=== PATIENT | female | born 1960 | race Caucasian/White ===

== ENCOUNTER → 2018-01-10 14:00 | Outpatient (CLI) | payer OTHER, SELFPAY ==
--- NOTE | 2018-01-10 | DI.MG.S_ITS ---
BILATERAL DIGITAL SCREENING MAMMOGRAM 3D/2D WITH CAD: 01/10/2018 CLINICAL: Patient presents for routine screening. S/P bilateral augmentation. Comparison is made to exams dated: 12/28/2016 mammogram, 12/09/2015 mammogram, and 12/07/2014 mammogram - [facility]. There are scattered fibroglandular elements in both breasts. Current study was also evaluated with a Computer Aided Detection (CAD) system. Bilateral breast implants are stable. No significant masses, calcifications, or other findings are seen in either breast. There has been no significant interval change. IMPRESSION: NEGATIVE There is no mammographic evidence of malignancy. A 1 year screening mammogram is recommended. This exam was interpreted at Station ID: [id number]. NOTE: For mammograms, a report in lay terms will be sent to the patient. Approximately 15% of breast malignancies will not be visualized mammographically. In the management of a palpable breast mass, a negative mammogram must not discourage biopsy of a clinically suspicious lesion. Electronically Signed By: Frederic smith/oamira:01/10/2018 17:51:58 letter sent: Normal Exam ACR BI-RADS Category 1: Negative 3341F
== END ==
PROVIDERS: Family Provider Family Medicine; PCP Family Medicine; Visit Provider Family Medicine
DX: Z12.31 Encounter for screening mammogram for malignant neoplasm of breast (principal); Z98.82 Breast implant status
CPT/HCPCS: 77063; 77067

== ENCOUNTER → 2018-05-17 14:59 | Outpatient (CLI) | payer OTHER, SELFPAY ==
[2018-05-17 15:26] LABS: Hematocrit 36.8 % (36-46); Hemoglobin 12.4 g/dL (12.0-16.0); Mean Corpuscular HGB Conc 33.6 % (30-36); Mean Corpuscular Hemoglobin 30.8 PG (26-34); Mean Corpuscular Volume 91.5 fL (80-100); Platelet Count 193 X10^3/uL (150-400); Red Blood Cell Count 4.03 X10^6/uL (4.0-5.2); Red Cell Distribution Width 13.9 % (11.6-14.8); White Blood Cell Count 6.6 X10^3/uL (4.5-11.0)
[2018-05-17 15:32] LABS: Neutrophils Absolute Manual 3234 /uL (3000-5900); Total Cells Counted 100
[2018-05-17 15:45] LABS: RBC Morphology Normal Morphology
[2018-05-17 16:18] LABS: Thyroid Stimulating Hormone 0.58 uIU/mL (0.47-4.68)
[2018-05-17 16:38] LABS: Hep C Virus Ab w/Reflex Quant NEGATIVE s/c (NEGATIVE)
[2018-05-17 19:22] LABS: Alanine Aminotransferase 32 IU/L (9-52); Albumin Globulin Ratio 1.6 (1.0-2.8); Alkaline Phosphatase 58 U/L (38-126); Aspartate Aminotransferase 32 IU/L (14-36); BUN Creatinine Ratio 21.1 (6-22); Bilirubin Total 0.6 mg/dL (0.2-1.3); Blood Urea Nitrogen 19 mg/dL (7-17); Calcium 9.3 mg/dL (8.4-10.2); Carbon Dioxide 30 mmol/L (22-32); Chloride 106 mmol/L (98-107); Cholesterol 208 mg/dL (140-199); Estimated Glomerular Filt Rate > 60.0 mL/min (>60); Globulin 2.5 g/dL (1.7-4.1); Glucose 75 mg/dL (70-100); HDL Cholesterol 83 mg/dL (40-60); HEMOLYSIS < 15 (0-50); LDL Cholesterol Calculated 108 mg/dL (<100); Sodium 144 mmol/L (137-145); Total Protein 6.5 g/dL (6.3-8.2); Triglycerides 85 mg/dL (35-150)
[2018-05-17 20:30] LABS: Hemoglobin A1C% w Est Avg Glu 5.8 % (4.0-6.0)
== END ==
PROVIDERS: PCP Family Medicine; Visit Provider Family Medicine
DX: D68.51 Activated protein C resistance (principal); Z79.01 Long term (current) use of anticoagulants; Z13.29 Encounter for screening for other suspected endocrine disorder; E78.5 Hyperlipidemia, unspecified; Z11.59 Encounter for screening for other viral diseases
CPT/HCPCS: 36415; 80053; 80061; 83036; 84443; 85025; 86803

== ENCOUNTER 2018-06-20 10:09 | Emergency (ER) | payer OTHER, SELFPAY ==
--- NOTE | 2018-06-20 10:18 | ED.WOUNDLAC ---
HPI - Wound/Laceration General Chief Complaint: Wound/Laceration Stated Complaint: SLICE ACROSS BACK OF L HAND,WARIFIN Time Seen by Provider: 06/20/18 10:17 Source: patient and family Mode of arrival: ambulatory Limitations: no limitations History of Present Illness HPI narrative: 57-year-old nonsmoking female presents with left hand laceration suffered this morning. Her tetanus is current and she states she cut her hand on the sharp edge of a new shelf she was putting together. It started bleeding immediately. She denies other injury. She denies numbness, tingling or weakness. She has full range of motion of her hand and fingers. Onset (ago): minute(s) Extremity Location: Left: hand Place: home Patient tetanus UTD: Yes Context: accidental Associated symptoms: none Treatments prior to arrival: bandage Related Data Home Medications Medication Instructions Recorded Confirmed Vitamin B-12 100 mcg PO QDAY #0 tab 05/02/13 05/17/18 ferrous gluconate [Iron High 65 mg PO Q DAY #0 08/21/16 05/17/18 Potency] loratadine 10 mg PO QDAYP PRN #0 12/03/16 05/17/18 Previous Rx's Medication Instructions Recorded sumatriptan succinate [Imitrex] 25 mg PO PRN PRN #30 tab 09/07/16 estriol (bulk) 0.2 % VAGINAL SEE INSTRUCTIONS #30 03/18/17 gm betamethasone dipropionate 1 joe TOPICAL QHS #45 gm 07/07/17 lidocaine HCl 0 TOPICAL SEE INSTRUCTIONS #30 ml 07/12/17 betamethasone dipropionate 0 TOPICAL QPM #45 gm 07/23/17 hydrocodone 5 mg-acetaminophen 325 1 tab PO Q6H PRN #20 tab 01/17/18 mg tablet warfarin 10 mg tablet 10 mg PO SEE INSTRUCTIONS #90 tab 05/04/18 warfarin 2 mg tablet 2 mg PO SEE INSTRUCTIONS #120 tab 05/04/18 terbinafine HCl 250 mg tablet 250 mg PO DAILY 84 Days #84 tab 05/18/18 Allergies Allergy/AdvReac Type Severity Reaction Status Date / Time bacitracin [From CORTISPORIN] Allergy Unknown Verified 05/17/18 13:32 budesonide Allergy Unknown nasal Verified 05/17/18 13:32 [From RHINOCORT ALLERGY] swelling hydrocortisone Allergy Unknown Verified 05/17/18 13:32 [From CORTISPORIN] neomycin [From CORTISPORIN] Allergy Unknown Verified 05/17/18 13:32 polymyxin B Allergy Unknown Verified 05/17/18 13:32 [From CORTISPORIN] meperidine [From DEMEROL] AdvReac Unknown vomiting Verified 05/17/18 13:32 STERI STRIPS Allergy Unknown rash Uncoded 05/17/18 13:32 Review of Systems Review of Systems All systems reviewed & are unremarkable except as noted in HPI and below Constitutional Denies chills, Denies fever(s), Denies lethargy and Denies weakness Eyes Denies change in vision, Denies eye discharge, Denies irritation and Denies loss of vision ENT Ears, Nose, Mouth, and Throat: Denies change in voice, Denies neck pain and Denies sore throat Cardiovascular Denies chest pain, Denies irregular heart rhythm, Denies lightheadedness, Denies palpitations, Denies dyspnea, Denies dyspnea on exertion and Denies orthopnea Respiratory Denies cough, Denies dyspnea, Denies dyspnea on exertion and Denies wheezing Gastrointestinal Gastrointestinal: Denies abdominal pain, Denies change in bowel habits, Denies diarrhea, Denies nausea and Denies vomiting Genitourinary Denies hematuria, Denies flank pain, Denies urinary incontinence and Denies urinary urgency Musculoskeletal Denies neck pain Integumentary/Breasts Denies pruritus, Denies erythema, Denies rash and Reports wounds Neurologic Denies confusion, Denies loss of vision and Denies weakness Psychiatric Denies anxiety, Denies confusion, Denies depression, Denies homicidal ideation and Denies suicidal ideation Endocrine Denies palpitations Hematologic/Lymphatic Denies easy bruising Allergic/Immunologic Denies wheezing PFSH Medical History DVT (deep venous thrombosis) (Chronic 2003) Factor V Leiden (Chronic 1959) Hayfever (Chronic) Chicken pox (Resolved 1963) Surgical History Anesthesia (Resolved) History of abdominoplasty (Resolved 2004) History of breast augmentation (Resolved 2004) History of gastric bypass (Resolved 2004) History of lumbosacral spine surgery (Resolved 1993) History of lumbosacral spine surgery (Resolved 1994) Status post delivery (Resolved 1994) Family History Child Age: 22 Factor V deficiency Graves' disease Depression Anxiety Mental health problem Father Heart disease Lung cancer Grandfather Heart disease Mother Age: 84 Factor V deficiency Asthma TIA (transient ischemic attack) Grandfather Heart disease Heart attack Sister Age: 57 Hypertension Factor V deficiency Grandmother No problems noted. Grandmother MVA (motor vehicle accident) Sister Asthma Thyroid disorder Social History Smoking Status: Former smoker Exam Narrative Exam Narrative: GEN: AOx3 and in mild distress EYES: Pupils are equal, round, and reactive to light and accommodation. Extraoccular muscles are intact bilaterally. There is no subconjunctival hemorrhage or exudate. CHEST: Lungs are clear to auscultation bilaterally and free of wheezes, rales, or rhonchi. Heart rate is regular rhythm, there are no murmurs, clicks, rubs, or gallops. There is no chest wall tenderness. ABD: Abdomen is soft and nontender. There is no guarding or rebound. Bowel sounds are normal in all 4 quadrants. There is no mass or organomegaly. EXT: Full painless ROM of all extremities with no loss of sensation or strength. SKIN: 2cm laceration on dorsum of left hand just proximal to 5th metacarpophalangeal joint. Patient has full strength and range of motion of 5th finger. No numbness or tingling. Cap refill less than 2 sec. Wound visualized in a bloodless field and no tendon involvement noted Warm, pink, and dry. No erythema or rash Initial Vital Signs Initial Vital Signs: Vital Signs Temperature 98.2 F 06/20/18 10:19 Pulse Rate 73 06/20/18 10:19 Respiratory Rate 20 06/20/18 10:19 Blood Pressure 174/84 H 06/20/18 10:19 Pulse Oximetry 97 06/20/18 10:19 Procedures Laceration Repair Laceration 1: Site: hand Side (If applicable): left Size (cm): 2 Description: linear Depth: simple, single layer Local Anesthetic: lidocaine 1% and with bicarb Pre-repair: wound explored and deep structures intact Skin layer closed with: nylon Size (cm): 5-0 Number of sutures: 4 Course Vital Signs - 8 hr 11/12/18 10:19 Temperature 98.2 F Pulse Rate 73 Respiratory Rate 20 Blood Pressure 174/84 H Pulse Oximetry 97 Discharge Plan Departure Patient Disposition: Home Clinical Impression: Hand laceration Instructions: DI for Laceration Repair Activity Restrictions/Additional Instructions: Please keep the wound clean and dry to the best of your ability. Please monitor for signs of infection such as redness to the skin or increasing pain. Have the sutures removed by your doctor in about 7 days. If you are unable to get into your doctor, we would be happy to remove the sutures in that same timeframe. Prescriptions: No Action hydrocodone-acetaminophen 5-325 mg tablet 1 tab PO Q6H PRN (Reason: pain) Qty: 20 RF: 0 Vitamin B-12 100 mcg PO QDAY Qty: 0 RF: 0 ferrous gluconate [Iron High Potency] 240 MG tablet 65 mg PO Q DAY Qty: 0 RF: 0 sumatriptan succinate [Imitrex] 25 MG tablet 25 mg PO PRN PRNQty: 30 RF: 1 loratadine 10 MG tablet 10 mg PO QDAYP PRNQty: 0 RF: 0 estriol (bulk) 100 GM powder 0.2 % Vaginal SEE INSTRUCTIONS Qty: 30 RF: 5 betamethasone dipropionate 0.05 % cream 1 joe Topical QHS Qty: 45 RF: 0 lidocaine HCl 30 ML jelly Topical SEE INSTRUCTIONS Qty: 30 RF: 4 betamethasone dipropionate 0.05 % ointment Topical QPM Qty: 45 RF: 0 warfarin 10 mg tablet 10 mg PO SEE INSTRUCTIONS Qty: 90 RF: 3 warfarin [Coumadin] 2 mg tablet 2 mg PO SEE INSTRUCTIONS Qty: 120 RF: 3 terbinafine HCl 250 mg tablet 250 mg PO DAILY 84 Days Qty: 84 RF: 0 Referrals: Vale Tafoya MD [Primary Care Provider] -
[2018-06-20 10:19] VITALS: BP 174/84; PULSE 73; RESP 20; TEMP 36.8; O2SAT 97; BMI 28.9
[2018-06-20 10:47] VITALS: BP 138/80; PULSE 68; RESP 16; O2SAT 99
== END 2018-06-20 10:50 | disposition home or self-care (01) ==
PROVIDERS: Emergency Provider Emergency Medicine; Family Provider Family Medicine; PCP Family Medicine
DX: S61.412A Laceration without foreign body of left hand, initial encounter (principal); W26.8XXA Contact with other sharp object(s), not elsewhere classified, initial encounter
CPT/HCPCS: 12001; 99282; 99283

== ENCOUNTER → 2018-07-29 14:30 | Outpatient (CLI) | payer OTHER, SELFPAY ==
[2018-07-29 15:45] LABS: Alanine Aminotransferase 40 IU/L (9-52); Albumin 4.3 g/dL (3.5-5.0); Albumin Globulin Ratio 1.7 (1.0-2.8); Alkaline Phosphatase 60 U/L (38-126); Aspartate Aminotransferase 34 IU/L (14-36); BUN Creatinine Ratio 22.9 (6-22); Bilirubin Total 0.5 mg/dL (0.2-1.3); Blood Urea Nitrogen 16 mg/dL (7-17); Calcium 9.9 mg/dL (8.4-10.2); Carbon Dioxide 26 mmol/L (22-32); Chloride 104 mmol/L (98-107); Estimated Glomerular Filt Rate > 60.0 mL/min (>60); Globulin 2.5 g/dL (1.7-4.1); Glucose 95 mg/dL (70-100); HEMOLYSIS < 15 (0-50); Sodium 143 mmol/L (137-145); Total Protein 6.8 g/dL (6.3-8.2)
== END ==
PROVIDERS: PCP Family Medicine; Visit Provider Family Medicine
DX: Z79.899 Other long term (current) drug therapy (principal)
CPT/HCPCS: 36415; 80053

== ENCOUNTER → 2019-01-11 10:44 | Outpatient (CLI) | payer OTHER, MEDICAID, SELFPAY ==
--- NOTE | 2019-01-11 | DI.MG.S_ITS ---
BILATERAL DIGITAL SCREENING MAMMOGRAM 3D/2D WITH CAD WITH AUGMENTATION: 01/11/2019 CLINICAL: Patient presents for routine screening. S/P bilateral augmentation. Comparison is made to exams dated: 01/10/2018 mammogram, 12/28/2016 mammogram, and 12/09/2015 mammogram - [facility]. There are scattered fibroglandular elements in both breasts. Current study was also evaluated with a Computer Aided Detection (CAD) system. Bilateral breast implants are stable. No significant masses, calcifications, or other findings are seen in either breast. There has been no significant interval change. IMPRESSION: NEGATIVE There is no mammographic evidence of malignancy. A 1 year screening mammogram is recommended. This exam was interpreted at Station ID: [id number]. NOTE: For mammograms, a report in lay terms will be sent to the patient. Approximately 15% of breast malignancies will not be visualized mammographically. In the management of a palpable breast mass, a negative mammogram must not discourage biopsy of a clinically suspicious lesion. Electronically Signed By: Umberto reza/omaira:01/11/2019 16:50:39 letter sent: Normal Exam ACR BI-RADS Category 1: Negative 3341F
== END ==
PROVIDERS: PCP Family Medicine; Visit Provider Family Medicine
DX: Z12.31 Encounter for screening mammogram for malignant neoplasm of breast (principal); Z98.82 Breast implant status
CPT/HCPCS: 77063; 77067

== ENCOUNTER → 2019-03-11 09:06 | Outpatient (CLI) | payer OTHER, MEDICAID, SELFPAY ==
--- NOTE | 2019-03-11 09:12 | DI.RAD.S_ITS ---
PROCEDURE: XR SHOULDER LT MIN 2V INDICATIONS: left shoulder pain and dec ROM TECHNIQUE: 3 views of the shoulder were acquired. COMPARISON: None. FINDINGS: Bones: No fractures or dislocations. No suspicious bony lesions. Visualized ribs appear intact. Degenerative changes are seen, particularly involving the acromioclavicular joint. Soft tissues: No suspicious soft tissue calcifications. The visualized lung demonstrates an unremarkable appearance. IMPRESSION: No acute plain film abnormality is seen. If it would be helpful for clinical management decision making, please consider a dedicated scheduled left shoulder MRI for further evaluation (assuming that there is no contraindication). Dictated by: Akhil Hernandez M.D. on 03/11/2019 at 8:58 Approved by: Akhil Hernandez M.D. on 03/11/2019 at 9:00
== END ==
PROVIDERS: PCP Family Medicine; Visit Provider Physician Assistant
DX: M25.512 Pain in left shoulder (principal)
CPT/HCPCS: 73030

== ENCOUNTER → 2019-06-30 11:25 | Outpatient (CLI) | payer OTHER, MEDICAID, SELFPAY | PROVIDERS: PCP Family Medicine; Visit Provider Physician Assistant | DX: R30.0 Dysuria (principal) | CPT/HCPCS: 87086 ==

== ENCOUNTER → 2019-07-14 18:38 | Outpatient (CLI) | payer OTHER, MEDICAID, SELFPAY ==
--- NOTE | 2019-07-14 | DI.MRI.S_ITS ---
PROCEDURE: MR SHOULDER LT WO CON INDICATIONS: UNSPECIFIED ROTATOR CUFF TEAR OR RUPTURE TECHNIQUE: Noncontrast oblique coronal T2 fast spin echo with fat saturation, oblique sagittal T1 spin echo and T2 fast spin echo with fat saturation, axial T1 spin echo and T2 fast spin echo with fat saturation through the shoulder. COMPARISON: None. FINDINGS: Image quality: Excellent. Rotator cuff: Large full-thickness tear involving the supraspinatus tendon measuring 2.2 cm AP dimension on sagittal image 16 series 10. There is also interstitial tearing involving the footprint of the supraspinatus tendon seen on image 8 series 7. Infraspinatus tendinopathy mild thickening with low-grade bursal and articular surface fraying. Teres minor appears intact. Subscapularis tendinopathy with low-grade bursal and articular surface fraying seen on image 12 series 6. Mild atrophy of the supraspinatus muscle. Bones and bursae: No bone marrow contusions or fractures. Moderate hypertrophic acromioclavicular joint degeneration. Acromion demonstrates conventional anatomy, without an os acromiale. Capsule and soft tissues: Ill-defined intrasubstance signal changes present within the superior labrum suggestive of age indeterminate tear although subtle this could be chronic age-related fraying. Long head of the biceps tendon intact. Complete obliteration of the subcoracoid fat. Coracohumeral ligament intact. IMPRESSION: Large full-thickness tear involving the critical zone of the supraspinatus tendon. Mild atrophy of the supraspinatus muscle Infraspinatus and subscapularis tendinopathy with low-grade bursal and articular surface fraying Intrasubstance signal changes within the superior labrum as discussed above, possibly labral tear versus age-related fraying. Dictated by: Giovani Layne M.D. on 07/17/2019 at 8:53 Approved by: Giovani Layne M.D. on 07/17/2019 at 9:00
== END ==
PROVIDERS: Family Provider Family Medicine; PCP Family Medicine; Visit Provider Orthopaedic Surgery
DX: M75.122 Complete rotator cuff tear or rupture of left shoulder, not specified as traumatic (principal)
CPT/HCPCS: 73221

== ENCOUNTER → 2019-08-07 11:48 | Outpatient (CLI) | payer OTHER, MEDICAID, SELFPAY ==
--- NOTE | 2019-08-07 11:49 | DI.US.S_ITS ---
PROCEDURE: US PERIPH VENOUS LOW EXTREM LT INDICATIONS: EDEMA TECHNIQUE: Real-time imaging, as well as color and pulse Doppler interrogation, were performed of the lower extremity deep veins from the inguinal ligament to the popliteal fossa. COMPARISON: None. FINDINGS: The common femoral, femoral and popliteal veins are normally compressible, and free of intraluminal thrombus. Color and pulse Doppler demonstrate normal phasic intraluminal flow. There is normal augmentation response to distal compression maneuver. IMPRESSION: No evidence of left lower extremity deep vein thrombosis. Dictated by: Colten Luciano M.D. on 08/07/2019 at 11:23 Approved by: Colten Luciano M.D. on 08/07/2019 at 11:26
== END ==
PROVIDERS: PCP Family Medicine; Visit Provider Family Medicine
DX: R60.0 Localized edema (principal); D68.51 Activated protein C resistance; Z86.718 Personal history of other venous thrombosis and embolism
CPT/HCPCS: 93971

== ENCOUNTER → 2020-03-26 10:02 | Outpatient (CLI) | payer OTHER, SELFPAY ==
--- NOTE | 2020-03-26 | DI.MG.S_ITS ---
BILATERAL DIGITAL SCREENING MAMMOGRAM 3D/2D WITH CAD WITH AUGMENTATION: 03/26/2020 CLINICAL: Routine screening. Comparison is made to exams dated: 01/11/2019 mammogram, 01/10/2018 mammogram, and 12/28/2016 mammogram - [facility]. There are scattered fibroglandular elements in both breasts. Current study was also evaluated with a Computer Aided Detection (CAD) system. Bilateral breast implants are stable. No significant masses, calcifications, or other findings are seen in either breast. There has been no significant interval change. IMPRESSION: NEGATIVE There is no mammographic evidence of malignancy. A 1 year screening mammogram is recommended. This exam was interpreted at Station ID: [id number]. NOTE: For mammograms, a report in lay terms will be sent to the patient. Approximately 15% of breast malignancies will not be visualized mammographically. In the management of a palpable breast mass, a negative mammogram must not discourage biopsy of a clinically suspicious lesion. Electronically Signed By: Geo joseph/omaira:03/26/2020 12:16:42 letter sent: Normal Exam ACR BI-RADS Category 1: Negative 3341F
== END ==
PROVIDERS: PCP Family Medicine; Referring Provider Family Medicine; Visit Provider Family Medicine
DX: Z12.31 Encounter for screening mammogram for malignant neoplasm of breast (principal)
CPT/HCPCS: 77063; 77067

== ENCOUNTER 2020-05-11 15:55 | Emergency (ER) | payer OTHER, SELFPAY ==
[2020-05-11 16:12] VITALS: BP 159/78; PULSE 72; RESP 22; TEMP 36.7; O2SAT 96; BMI 24.7
--- NOTE | 2020-05-11 16:27 | ED.NECK ---
HPI - Neck Pain/Injury <Nafisa MottESTHER - Last Filed: 05/11/20 21:23> General Chief Complaint: Neck Pain/Injury Stated Complaint: states muscle spasm in right side neck Time Seen by Provider: 05/11/20 16:11 Mode of arrival: Ambulatory Limitations: no limitations History of Present Illness HPI Narrative: 59yo female presents to the ED for right neck spasms. 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 Today she developed right neck spasms. She states this started when she woke up and is worse with certain movements. She took an oxycodone and a Flexeril which has not helped much. Patient denies any direct injury, she denies any fevers, chills, nausea, vomiting, diarrhea, chest pain, shortness of breath. She states also her warfarin prescription was late in the mail as there was a mixup, she hopes that it arrives Wednesday. Related Data Home Medications Medication Instructions Recorded Confirmed Vitamin B-12 100 mcg PO QDAY #0 tab 05/02/13 02/12/20 ferrous gluconate [Iron High 65 mg PO Q DAY #0 08/21/16 02/12/20 Potency] cholecalciferol (vitamin D3) PO 05/23/19 02/12/20 multivitamin 1 cap PO DAILY 05/23/19 02/12/20 omega-3 fatty acids-fish oil PO 05/23/19 02/12/20 biotin 5,000 mcg disintegrating 5,000 mcg PO DAILY tab 02/12/20 02/12/20 tablet Previous Rx's Medication Instructions Recorded betamethasone dipropionate 1 joe TOPICAL QHS #45 gm 10/18/18 warfarin 10 mg tablet See Rx Instructions PO DAILY #30 05/04/19 tab warfarin 2 mg tablet See Rx Instructions PO DAILY #60 05/04/19 tab sumatriptan succinate 25 mg tablet 25 mg PO PRN PRN #30 tab 10/30/19 Estriol cream 0.2% See Rx Instructions .ROUTE 03/22/20 .COMPLEX #90 day methocarbamol 1,000 mg PO TID #20 tab 05/11/20 warfarin 2 mg PO DAILY #4 tab 05/11/20 warfarin 10 mg PO DAILY #2 tab 05/11/20 Allergies Allergy/AdvReac Type Severity Reaction Status Date / Time bacitracin [From CORTISPORIN] Allergy Unknown Verified 02/12/20 10:39 budesonide Allergy Unknown nasal Verified 02/12/20 10:39 [From RHINOCORT ALLERGY] swelling hydrocortisone Allergy Unknown Verified 02/12/20 10:39 [From CORTISPORIN] neomycin [From CORTISPORIN] Allergy Unknown Verified 02/12/20 10:39 polymyxin B Allergy Unknown Verified 02/12/20 10:39 [From CORTISPORIN] meperidine [From DEMEROL] AdvReac Unknown vomiting Verified 02/12/20 10:39 STERI STRIPS Allergy Unknown rash Uncoded 02/12/20 10:39 Review of Systems <ESTHER Coreas - Last Filed: 05/11/20 21:23> Review of Systems Narrative: REVIEW OF SYSTEMS: GENERAL: Denies fever or chills. HENT: No head trauma. CARDIOVASCULAR: No chest pain or syncope. RESPIRATORY: No shortness of breath or cough. GASTROINTESTINAL: No nausea or vomiting. GENITOURINARY: No flank pain. MUSCULOSKELETAL: Complains of neck spasms to right side of neck, see HPI. INTEGUMENTARY: No rash, lesions, or pruritus. NEURO: No numbness, tingling. PSYCH: No behavior or mood changes. Patient History <ESTHER Coreas - Last Filed: 05/11/20 21:23> Medical History Chicken pox (Resolved 1963) DVT (deep venous thrombosis) (Chronic 2003) Factor V Leiden (Chronic 1959) Hayfever (Chronic) Surgical History Anesthesia (Resolved) History of abdominoplasty (Resolved 2004) History of breast augmentation (Resolved 2004) History of gastric bypass (Resolved 2004) History of lumbosacral spine surgery (Resolved 1993) History of lumbosacral spine surgery (Resolved 1994) Status post delivery (Resolved 1994) Family History Child Age: 24 Factor V deficiency Graves' disease Depression Anxiety Mental health problem Father Heart disease Lung cancer Grandfather Heart disease Mother Age: 86 Factor V deficiency Asthma TIA (transient ischemic attack) Grandfather Heart disease Heart attack Sister Age: 59 Hypertension Factor V deficiency Grandmother No problems noted. Grandmother MVA (motor vehicle accident) Sister Asthma Thyroid disorder Social History Smoking Status: Former smoker Smoking Status: Former smoker alcohol intake frequency: a few times a month Substance Use Type: does not use Exam <ESTHER Coreas - Last Filed: 05/11/20 21:23> Initial Vital Signs Initial Vital Signs: Vital Signs Temperature 98.0 F 05/11/20 16:12 Pulse Rate 72 05/11/20 16:12 Respiratory Rate 22 05/11/20 16:12 Blood Pressure 159/78 H 05/11/20 16:12 Pulse Oximetry 96 05/11/20 16:12 PHYSICAL EXAMINATION: GENERAL: Well groomed, alert, and cooperative. Answers questions promptly and appropriately. Vital signs noted. HENT: Normocephalic, atraumatic. EYES: Symmetrical, sclera white, no periorbital swelling. CARDIOVASCULAR: Regular rate. RESPIRATORY: Normal respiratory rate, trachea midline, airway patent. No stridor, nasal flaring or accessory muscle use. MUSCULOSKELETAL: Palpable right trapezius/sternocleidomastoid muscle spasm, tenderness to this area, decreased range of motion to neck particularly when rotating head to left due to pain. Increased pain with stretching of this muscle. Normal gait and coordination. Equal tone and mass bilaterally. No spinal tenderness or deformities. EXTREMITIES: CMS intact. No pedal edema. SKIN: Warm, dry, soft, appropriate color for ethnicity. No lesions, rashes, or wounds. NEURO: Alert and Oriented X 3. No sensory deficits. PSYCH: Appropriate affect and mood. <Padmaja Greene DO - Last Filed: 05/12/20 08:34> Initial Vital Signs Initial Vital Signs: Vital Signs Temperature 98.0 F 05/11/20 16:12 Pulse Rate 72 05/11/20 16:12 Respiratory Rate 22 05/11/20 16:12 Blood Pressure 159/78 H 05/11/20 16:12 Pulse Oximetry 96 05/11/20 16:12 Course <ESTHER Coreas - Last Filed: 10/03/20 21:23> Course Course Narrative: Patient given a lidocaine patch and Valium, reports some decreased pain. She was given a 2nd dose of Valium to take at home. I had an extensive conversation with patient to not take Valium with methocarbamol, with methocarbamol was prescribed for consumption tomorrow. Orders Ordered: Discontinued Medications Diazepam (Valium) 5 mg PO NOW ONE Stop: 05/11/20 16:27 Last Admin: 05/11/20 16:33 Dose: 5 mg Documented by: YASMINE Diazepam (Valium) 5 mg PO NOW ONE Stop: 05/11/20 17:09 Last Admin: 05/11/20 17:51 Dose: 5 mg Documented by: YASMINE Lidocaine (Lidoderm) 1 each TOP NOW ONE Stop: 05/11/20 16:27 Last Admin: 05/11/20 16:33 Dose: 1 each Documented by: YASMINE Vital Signs Vital signs: Vital Signs - 8 hr 05/11/20 16:12 05/11/20 17:56 Temperature 98.0 F Pulse Rate 72 64 Respiratory Rate 22 Blood Pressure 159/78 H 142/82 H Pulse Oximetry 96 99 <Padmaja Greene DO - Last Filed: 05/12/20 08:34> Orders Ordered: Discontinued Medications Diazepam (Valium) 5 mg PO NOW ONE Stop: 05/11/20 16:27 Last Admin: 05/11/20 16:33 Dose: 5 mg Documented by: YASMINE Diazepam (Valium) 5 mg PO NOW ONE Stop: 05/11/20 17:09 Last Admin: 05/11/20 17:51 Dose: 5 mg Documented by: YASMINE Lidocaine (Lidoderm) 1 each TOP NOW ONE Stop: 05/11/20 16:27 Last Admin: 05/11/20 16:33 Dose: 1 each Documented by: YASMINE Vital Signs Vital signs: Vital Signs - 8 hr 05/11/20 16:12 05/11/20 17:56 Temperature 98.0 F Pulse Rate 72 64 Respiratory Rate 22 Blood Pressure 159/78 H 142/82 H Pulse Oximetry 96 99 [facility] - Neck Pain/Injury <ESTHER Coreas - Last Filed: 05/11/20 21:23> Medical Records Attestation: I reviewed the patient's medical records. Lab Data Attestation: I reviewed the patient's lab results. MDM Narrative Medical decision making narrative: History and examination concerning for muscle spasm versus strain. Less likely any bony involvement given location, palpable muscle spasm, and history of using shoulder extensively over the past 3 days. Patient was prescribed 2 doses of Valium, 1 today known 1 to take before bed to help with muscle spasms. She has tried Flexeril in the past, she was given a prescription for methocarbamol to see if this works better over the next few days, she was counseled extensively to not use Valium with methocarbamol, patient agreed to this plan. Additionally, she was given 2 doses of her warfarin which is verified in her chart as 14 mg a day, as she has recently run out and her prescription is in the mail. Very strict return precautions given for new or worsening symptoms. Patient agreed to plan of care verbalized understanding. Discharge Plan Departure Patient Disposition: Home Clinical Impression: Neck muscle spasm, [facility] current use of anticoagulant therapy Discharge Date/Time: 05/11/20 17:57 Instructions: DI for Neck Pain, DI for Muscle Spasm Activity Restrictions/Additional Instructions: Thank you for entrusting me with your care today. As discussed, it appears you have a muscle spasm. Please take the 2nd dose of Valium later on this evening if you are still having muscle spasms. As discussed, do not take any of your pain medications with this, as it can make you too drowsy. Use Tylenol as needed for pain, perform gentle stretches, apply heat to the area, and decreased above that movements of your arm. Tomorrow you may use methocarbamol, this is a muscle relaxer as well. Do not use methocarbamol and Valium together. Do not drive with these medications as they can make you drowsy. I have given you a prescription for your warfarin, please follow-up with your primary care provider as scheduled for INR checks Prescriptions: New warfarin 10 mg tablet 10 mg PO DAILY Qty: 2 RF: 0 warfarin 2 mg tablet 2 mg PO DAILY Qty: 4 RF: 0 methocarbamol 500 mg tablet 1,000 mg PO TID Qty: 20 RF: 0 No Action biotin 5,000 mcg tablet,disintegrating 5,000 mcg PO DAILY RF: 0 Vitamin B-12 100 mcg PO QDAY Qty: 0 RF: 0 ferrous gluconate [Iron High Potency] 240 MG tablet 65 mg PO Q DAY Qty: 0 RF: 0 betamethasone dipropionate 0.05 % cream 1 joe Topical QHS Qty: 45 RF: 0 warfarin 10 mg tablet See Rx Instructions PO DAILY Qty: 30 RF: 11 warfarin 2 mg tablet See Rx Instructions PO DAILY Qty: 60 RF: 11 sumatriptan succinate [Imitrex] 25 mg tablet 25 mg PO PRN PRN (Reason: migraine) Qty: 30 RF: 1 Estriol cream 0.2% See Rx Instructions .ROUTE .COMPLEX Qty: 90 RF: 1 multivitamin Capsule 1 cap PO DAILY RF: 0 omega-3 fatty acids-fish oil PO RF: 0 cholecalciferol (vitamin D3) PO RF: 0 Referrals: Vale Tafoya MD [Primary Care Provider] - <Padmaja Greene DO - Last Filed: 05/12/20 08:34> Cosign ED Attending Cosignature Attestation: I was immediately available in the department for consultation. Documentation has been reviewed. I agree with assessment and plan.
[2020-05-11] MEDS: LIDOCAINE PATCH 1 EACH ADH..PATCH TOP (16:33)
[2020-05-11] MEDS: diazePAM 5 MG TABLET PO ×2 (16:33→17:51)
[2020-05-11 17:56] VITALS: BP 142/82; PULSE 64; O2SAT 99
== END 2020-05-11 17:57 | disposition home or self-care (01) ==
PROVIDERS: Emergency Provider Nurse Practitioner; PCP Family Medicine
DX: M62.838 Other muscle spasm (principal); Z79.01 Long term (current) use of anticoagulants; Y99.0 Civilian activity done for income or pay
CPT/HCPCS: 99283

== ENCOUNTER 2020-05-15 14:59 | Emergency (ER) | payer OTHER, SELFPAY ==
[2020-05-15 15:05] VITALS: BP 145/86; PULSE 99; RESP 15; TEMP 37.1; O2SAT 97; BMI 24.7
--- NOTE | 2020-05-15 15:34 | PC.NURSE ---
seen the other night for right shoulder pain now pain has radiated down into right scapular region. Muscle relaxant not providing relief. Pain worse with deep breath in right scapula
[2020-05-15] MEDS: KETOROLAC 60 MG/2 ML VIAL 30 MG IM (16:32)
[2020-05-15] MEDS: LIDOCAINE PATCH 1 EACH ADH..PATCH TOP (16:32)
[2020-05-15] MEDS: ACETAMINOPHEN 325 MG TABLET 650 MG PO (16:32)
[2020-05-15] MEDS: CYCLOBENZAPRINE 10 MG TABLET PO (16:33)
[2020-05-15 17:47] VITALS: BP 111/74; PULSE 83; RESP 16; O2SAT 100
--- NOTE | 2020-05-15 17:50 | ED_ITS ---
HPI - Back Pain/Injury <ESTHER Dyer - Last Filed: 05/16/20 00:59> General Chief Complaint: Back Pain/Injury Stated Complaint: back pains, like spasms Time Seen by Provider: 05/15/20 15:46 Source: patient Mode of arrival: Ambulatory Limitations: no limitations History of Present Illness HPI Narrative: This is a 59-year-old female, former smoker, who of back pain and DVT who is currently taking warfarin presents to ED with significant other with chief complain of right upper back pain and shoulder region. Patient reports she was seen in ED 3 days ago and evaluated for and right neck spasm and pain which has improved of pain now migrated to right upper thorax and shoulder region. Right dominant hand. 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 She denies recent injury, trauma, or falls. She denies fever, chills, rash, nausea or vomiting. Patient denies tingling or numbness to affected arm but reports limited range of motion on right arm due to increasing pain. She reports pain severity from 7/10 to 10/10 with movements and describes sharp in character. She had an appointment with Dr. Tafoya to follow-up on ER visit but was informed Dr. Tafoya does not see patient for L&I care and she is here today. After Saturdays visit, patient was discharged to home with methocarbamol and has been taking [id number] Tylenol without much improvement. Related Data Home Medications Medication Instructions Recorded Confirmed Vitamin B-12 100 mcg PO QDAY #0 tab 05/02/13 02/12/20 ferrous gluconate [Iron High 65 mg PO Q DAY #0 08/21/16 02/12/20 Potency] cholecalciferol (vitamin D3) PO 05/23/19 02/12/20 multivitamin 1 cap PO DAILY 05/23/19 02/12/20 omega-3 fatty acids-fish oil PO 05/23/19 02/12/20 biotin 5,000 mcg disintegrating 5,000 mcg PO DAILY tab 02/12/20 02/12/20 tablet Previous Rx's Medication Instructions Recorded betamethasone dipropionate 1 joe TOPICAL QHS #45 gm 03/12/19 sumatriptan succinate 25 mg tablet 25 mg PO PRN PRN #30 tab 10/30/19 Estriol cream 0.2% See Rx Instructions .ROUTE 03/22/20 .COMPLEX #90 day methocarbamol 1,000 mg PO TID #20 tab 05/11/20 warfarin 2 mg tablet See Rx Instructions PO DAILY #60 05/13/20 tab warfarin 10 mg tablet See Rx Instructions PO DAILY #30 05/14/20 tab cyclobenzaprine 10 mg PO BEDTIME PRN #10 tab 05/15/20 hydrocodone-acetaminophen [[place]] 1 tab PO BID PRN #10 tab 05/15/20 lidocaine 1 patch TOP DAILY PRN #30 each 05/15/20 Allergies Allergy/AdvReac Type Severity Reaction Status Date / Time bacitracin [From CORTISPORIN] Allergy Unknown Verified 05/15/20 15:05 budesonide Allergy Unknown nasal Verified 05/15/20 15:05 [From RHINOCORT ALLERGY] swelling hydrocortisone Allergy Unknown Verified 05/15/20 15:05 [From CORTISPORIN] neomycin [From CORTISPORIN] Allergy Unknown Verified 05/15/20 15:05 polymyxin B Allergy Unknown Verified 05/15/20 15:05 [From CORTISPORIN] meperidine [From DEMEROL] AdvReac Unknown vomiting Verified 05/15/20 15:05 STERI STRIPS Allergy Unknown rash Uncoded 05/15/20 15:05 Review of Systems <ESTHER Dyer - Last Filed: 05/16/20 00:59> Review of Systems Narrative: General: Denies fever, chills, fatigue, malaise, sweats. HEENT: Denies sinus pain, ear pain, sore throat, difficulty swallowing, dizziness. Respiratory: Denies dyspnea, cough, wheezing, hemoptysis, sputum. Cardiovascular: Denies chest pain, palpitations, orthopnea, edema. Gastrointestinal: Denies nausea, vomiting, abdominal pain, diarrhea, constipation, melena. : Denies dysuria, frequency, incontinence, hematuria, urinary retention. Musculoskeletal: See HPI Skin: Denies rash, skin lesions, or other. Neurologic: Denies weakness, headache, numbness, change in speech, confusion, seizures, incoordination. Psychiatric: No concerning psychosocial issues. 12-point review of systems is negative except for those stated above. Patient History <ESTHER Dyer - Last Filed: 05/16/20 00:59> Medical History Chicken pox (Resolved 1963) DVT (deep venous thrombosis) (Chronic 2003) Factor V Leiden (Chronic 1959) Hayfever (Chronic) Surgical History Anesthesia (Resolved) History of abdominoplasty (Resolved 2004) History of breast augmentation (Resolved 2004) History of gastric bypass (Resolved 2004) History of lumbosacral spine surgery (Resolved 1993) History of lumbosacral spine surgery (Resolved 1994) Status post delivery (Resolved 1994) Family History Child Age: 24 Factor V deficiency Graves' disease Depression Anxiety Mental health problem Father Heart disease Lung cancer Grandfather Heart disease Mother Age: 86 Factor V deficiency Asthma TIA (transient ischemic attack) Grandfather Heart disease Heart attack Sister Age: 59 Hypertension Factor V deficiency Grandmother No problems noted. Grandmother MVA (motor vehicle accident) Sister Asthma Thyroid disorder Social History Smoking Status: Former smoker Smoking Status: Former smoker alcohol intake frequency: a few times a month Substance Use Type: does not use Exam <ESTHER Dyer - Last Filed: 05/16/20 00:59> Narrative Exam Narrative: General appearance: well developed, well nourished, in no acute distress. Head: normocephalic, atraumatic, no scalp lesions, non-tender. ENT: Hearing grossly intact. Airway patent. Neck/Thyroid: neck supple, full range of motion, no visible masses or meningeal signs. No JVD, non-tender without lymphadenopathy. Skin: no suspicious rashes, lesions over visible areas. Warm and dry and appropriate color for ethnicity. Heart: no clubbing, no cyanosis, no edema. Lungs: Breathing even and unlabored. No stridor. No accessory muscles used. Able to speak in full sentences. Chest: normal shape and expansion. Abdomen: non-obese, non-distended. Neurologic: alert and oriented. Cognitive exam, [employer] and PNS grossly intact on informal exam. Psych: good eye contact, normal affect. Initial Vital Signs Initial Vital Signs: Vital Signs Temperature 98.8 F 05/15/20 15:05 Pulse Rate 99 H 05/15/20 15:05 Respiratory Rate 15 05/15/20 15:05 Blood Pressure 145/86 H 05/15/20 15:05 Pulse Oximetry 97 05/15/20 15:05 Back/Spine/Pelvis Cervical Spine: normal cervical lordosis and cervical ROM normal Thoracic/Lumbar Spine: thoracic and lumbar spine normal to inspection, pain with thoraco-lumbar ROM (right upper thoracic and right arm), paraspinal tenderness (right upper thoracic/trapezius), thoraco-lumbar ROM limited (upper thoracic and limited ROM in right arm), thoraco-lumbar spasm (right upper thoracic/trapezius), No thoracic spinal tenderness and No lumbar spinal tenderness <Amrit Whitman DO - Last Filed: 05/16/20 07:08> Initial Vital Signs Initial Vital Signs: Vital Signs Temperature 98.8 F 05/15/20 15:05 Pulse Rate 99 H 05/15/20 15:05 Respiratory Rate 15 05/15/20 15:05 Blood Pressure 145/86 H 05/15/20 15:05 Pulse Oximetry 97 05/15/20 15:05 Scores <ESTHER Dyer - Last Filed: 05/16/20 00:59> GCS Talya coma scale eye opening: Spontaneous [place]a coma scale verbal response: Orientated [place] coma scale motor response: Obey commands Talya coma scale total score: 15 Course <ESTHER Dyer - Last Filed: 05/16/20 00:59> Orders Ordered: Discontinued Medications Acetaminophen (Tylenol) 650 mg PO NOW ONE Stop: 05/15/20 16:22 Last Admin: 05/15/20 16:32 Dose: 650 mg Documented by: TRACEY Cyclobenzaprine HCl (Flexeril) 10 mg PO NOW ONE Stop: 05/15/20 16:22 Last Admin: 05/15/20 16:33 Dose: 10 mg Documented by: TRACEY Ketorolac Tromethamine (Toradol) 30 mg IM NOW ONE Stop: 05/15/20 16:22 Last Admin: 10/07/20 16:32 Dose: 30 mg Documented by: SCANAPO Lidocaine (Lidoderm) 1 each TOP NOW ONE Stop: 05/15/20 16:23 Last Admin: 05/15/20 16:32 Dose: 1 each Documented by: SCANAPO Vital Signs Vital signs: Vital Signs - 8 hr 05/15/20 17:47 Pulse Rate 83 Respiratory Rate 16 Blood Pressure 111/74 Pulse Oximetry 100 <Amrit Whitman DO - Last Filed: 05/16/20 07:08> Orders Ordered: Discontinued Medications Acetaminophen (Tylenol) 650 mg PO NOW ONE Stop: 05/15/20 16:22 Last Admin: 05/15/20 16:32 Dose: 650 mg Documented by: SCANAPO Cyclobenzaprine HCl (Flexeril) 10 mg PO NOW ONE Stop: 05/15/20 16:22 Last Admin: 05/15/20 16:33 Dose: 10 mg Documented by: SCANAPO Ketorolac Tromethamine (Toradol) 30 mg IM NOW ONE Stop: 05/15/20 16:22 Last Admin: 05/15/20 16:32 Dose: 30 mg Documented by: SCANAPO Lidocaine (Lidoderm) 1 each TOP NOW ONE Stop: 05/15/20 16:23 Last Admin: 05/15/20 16:32 Dose: 1 each Documented by: SCANAPO Vital Signs Vital signs: Vital Signs - 8 hr 05/15/20 17:47 Pulse Rate 83 Respiratory Rate 16 Blood Pressure 111/74 Pulse Oximetry 100 MDM - Back Pain/Injury <ESTHER Dyer - Last Filed: 05/16/20 00:59> Differential Diagnosis Differential diagnosis: Likely thoracic back pain and other (shoulder strain, trapezius strain) Medical Records Attestation: I reviewed the patient's medical records. MDM Narrative Medical decision making narrative: This is a 59-year-old female who presents to ED with chief complain of right-sided upper back/trapezius pain. 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 She reports now neck pain and spasm has improved but pain has migrated to adjacent right upper thoracic and shoulder region. She has been using methocarbamol and Tylenol without much improvement. Right trapezius, upper back exam appreciated spsam and a knot. Patient had intact sensation and pulses in bilateral arm. Was able to move all her fingers without difficulty. Patient was treated with Flexeril, lidocaine patch, Toradol IM injection and Tylenol with improvement in pain. Patient discharged to home with lidocaine patch, Flexeril, [place] since patient is not able to take ibuprofen regularly with warfarin use. We discussed in length not to combine Flexeril and [place] together to prevent increase in sedation along precautions of the m edication. Advised not to use methocarbamol and Flexeril concurrently. Patient advised to follow-up with primary care physician for INR check. Return precautions were discussed with patient and she verbalized understanding in agreement with the treatment plan. Discharge Plan Departure Patient Disposition: Home Clinical Impression: Acute upper back pain Discharge Date/Time: 05/15/20 17:59 Instructions: Thoracic Back Pain Activity Restrictions/Additional Instructions: You have been diagnosed with [upper thoracic back pain.]. What to do: *Take your medications as directed. Please take Flexeril for muscle relaxant. Please do not take methocarbamol with Flexeril. Please take [id number] Tylenol 650 mg up to 3 to 4 times a day. Lidocaine patch on affected site topically on for 12 hours and off for 12 hours. [place] for severe pain only. It can cause sedation so please do not drive, drink alcohol, or operate heavy equipments. It can also cause constipation so please take precautions. [place] has 325 mg of Tylenol in a tab. Please limit Tylenol intake up to 4000 mg in 24 hour. This medication has been transmitted to [facility]. *Follow up with your primary care provider/L&I provider in 2-3 days, call for an appointment. Let them know you were seen in the ED and that we asked you to be seen in follow up. *Return to ED if you have any new, worsening, or concerning symptoms, such as [worsening pain, tingling/numbness/weakness to affected arm, chest pain, breathing difficulty, unable to tolerate fluids or any acute concerns]. Prescriptions: New lidocaine 5 % adhesive patch,medicated 1 patch TOP DAILY PRN (Reason: back pain) Qty: 30 RF: 0 cyclobenzaprine 10 mg tablet 10 mg PO BEDTIME PRN (Reason: muscle spasm) Qty: 10 RF: 0 hydrocodone-acetaminophen [[place]] 5-325 mg tablet 1 tab PO BID PRN (Reason: pain) Qty: 10 RF: 0 No Action biotin 5,000 mcg tablet,disintegrating 5,000 mcg PO DAILY RF: 0 Vitamin B-12 100 mcg PO QDAY Qty: 0 RF: 0 ferrous gluconate [Iron High Potency] 240 MG tablet 65 mg PO Q DAY Qty: 0 RF: 0 betamethasone dipropionate 0.05 % cream 1 joe Topical QHS Qty: 45 RF: 0 sumatriptan succinate [Imitrex] 25 mg tablet 25 mg PO PRN PRN (Reason: migraine) Qty: 30 RF: 1 Estriol cream 0.2% See Rx Instructions .ROUTE .COMPLEX Qty: 90 RF: 1 warfarin 2 mg tablet See Rx Instructions PO DAILY Qty: 60 RF: 11 warfarin 10 mg tablet See Rx Instructions PO DAILY Qty: 30 RF: 11 multivitamin Capsule 1 cap PO DAILY RF: 0 omega-3 fatty acids-fish oil PO RF: 0 cholecalciferol (vitamin D3) PO RF: 0 methocarbamol 500 mg tablet 1,000 mg PO TID Qty: 20 RF: 0 Referrals: Vale Tafoya MD [Primary Care Provider] - <Amrit Whitman DO - Last Filed: 05/16/20 07:08> Cosign ED Attending Cosignature Attestation: Dr Whitman Co-Sign Statement: I was available for consultation during this patient's emergency department visit. This chart is signed by myself for administrative purposes only. I did not have direct contact with this patient during this visit. They were seen independently by the APC.
== END 2020-05-15 17:59 | disposition home or self-care (01) ==
PROVIDERS: Emergency Provider Nurse Practitioner Family; PCP Family Medicine
DX: M54.6 Pain in thoracic spine (principal); Y99.0 Civilian activity done for income or pay
CPT/HCPCS: 96372; 99283; J1885

== ENCOUNTER → 2020-10-16 14:01 | Outpatient (CLI) | payer OTHER, SELFPAY ==
[2020-10-16 15:40] LABS: HEMOLYSIS < 15 (0-50); Iron 67 ug/dL (37-170)
[2020-10-16 15:42] LABS: BUN Creatinine Ratio 31.9 (6-22); Blood Urea Nitrogen 23 mg/dL (7-17); Calcium 9.7 mg/dL (8.4-10.2); Carbon Dioxide 29 mmol/L (22-32); Chloride 105 mmol/L (98-107); Cholesterol 252 mg/dL (140-199); Estimated Glomerular Filt Rate > 60.0 mL/min (>60); Glucose 96 mg/dL (80-110); HDL Cholesterol 90 mg/dL (40-60); HEMOLYSIS < 15 (0-50); LDL Cholesterol Calculated 143 mg/dL (<100); Sodium 138 mmol/L (137-145); Triglycerides 96 mg/dL (35-150)
[2020-10-16 15:50] LABS: Percent Iron Saturation 16 % (15-50); Total Iron Binding Capacity 420 ug/dL (265-497); Transferrin 321 mg/dL (206-381)
[2020-10-16 16:01] LABS: Vitamin D 25 Hydroxy (D3) 66.4 ng/mL (30.0-100.0)
[2020-10-16 16:47] LABS: Folate > 20.0 ng/mL (2.76-20.0); Vitamin B12 > 1000 pg/mL (239-931)
[2020-10-18 00:30] LABS: Vitamin B6 45.8 ug/L (2.0-32.8)
== END ==
PROVIDERS: PCP Family Medicine; Referring Provider Family Medicine; Visit Provider Family Medicine
DX: Z98.84 Bariatric surgery status (principal)
CPT/HCPCS: 36415; 80048; 80061; 82306; 82607; 82746; 83540; 83550; 84207

== ENCOUNTER → 2021-04-08 11:20 | Outpatient (CLI) | payer OTHER, SELFPAY ==
--- NOTE | 2021-04-08 11:21 | DI.RAD.S_ITS ---
PROCEDURE: XR ABDOMEN 1V INDICATIONS: constipation TECHNIQUE: One view of the abdomen acquired. COMPARISON: None. FINDINGS: Surgical changes and devices: None. Bowel: There are mildly prominent air-filled centralized bowel loops, few with an air-fluid level. There is dense solid stool in the descending colon and rectum. Soft tissues: No suspicious abdominal calcifications. Visualized solid organ contours appear normal in size. Bones: No suspicious bony lesions. Multilevel disc height loss in the lumbar spine. Degenerative changes in the sacroiliac joints and pubic symphysis. IMPRESSION: 1. Solid distal colonic and rectal stool. 2. Fluid levels in centralized small bowel loops may indicate ileus or obstruction due to obstipation. 3. Lower lumbar spine degeneration. Dictated by: Sommer Ag M.D. on 04/08/2021 at 14:53 Approved by: Sommer Ag M.D. on 04/08/2021 at 14:55
== END ==
PROVIDERS: PCP Family Medicine; Referring Provider Family Medicine; Visit Provider Family Medicine
DX: K59.00 Constipation, unspecified (principal); M47.816 Spondylosis without myelopathy or radiculopathy, lumbar region
CPT/HCPCS: 74018

== ENCOUNTER → 2021-06-04 09:46 | Outpatient (CLI) | payer OTHER, SELFPAY ==
--- NOTE | 2021-06-04 | DI.MG.S_ITS ---
BILATERAL DIGITAL SCREENING MAMMOGRAM 3D/2D WITH CAD WITH AUGMENTATION: 06/04/2021 CLINICAL: Routine screening. Comparison is made to exams dated: 03/26/2020 mammogram, 01/11/2019 mammogram, 01/10/2018 mammogram, and 12/28/2016 mammogram - [facility]. There are scattered fibroglandular elements in both breasts. Current study was also evaluated with a Computer Aided Detection (CAD) system. Bilateral breast implants are stable. No significant masses, calcifications, or other findings are seen in either breast. There has been no significant interval change. IMPRESSION: NEGATIVE There is no mammographic evidence of malignancy. A 1 year screening mammogram is recommended. This exam was interpreted at Station ID: [id number]. NOTE: For mammograms, a report in lay terms will be sent to the patient. Approximately 15% of breast malignancies will not be visualized mammographically. In the management of a palpable breast mass, a negative mammogram must not discourage biopsy of a clinically suspicious lesion. Electronically Signed By: Eric alvarez/omaira:06/04/2021 14:56:48 letter sent: Normal Exam ACR BI-RADS Category 1: Negative [id number]
== END ==
PROVIDERS: PCP Family Medicine; Referring Provider Family Medicine; Visit Provider Family Medicine
DX: Z12.31 Encounter for screening mammogram for malignant neoplasm of breast (principal)
CPT/HCPCS: 77063; 77067

== ENCOUNTER → 2021-07-08 09:47 | Outpatient (CLI) | payer OTHER, SELFPAY ==
[2021-07-08 10:36] LABS: COVID19 -Nasal RAPID Negative (Negative)
== END ==
PROVIDERS: PCP Family Medicine; Visit Provider Nurse Practitioner Family
DX: Z20.822 Contact with and (suspected) exposure to COVID-19 (principal)
CPT/HCPCS: 87635

== ENCOUNTER → 2021-10-17 13:33 | Outpatient (CLI) | payer OTHER, SELFPAY ==
--- NOTE | 2021-10-17 13:34 | DI.RAD.S_ITS ---
PROCEDURE: XR SHOULDER RT MIN 2V INDICATIONS: right shoulder pain TECHNIQUE: 3 views of the shoulder were acquired. COMPARISON: [facility], CR, XR SHOULDER LT MIN 2V, 03/11/2019, 9:16. FINDINGS: Bones: No fractures or dislocations. Moderate acromioclavicular joint osteoarthritic changes are seen. Mild glenohumeral joint osteoarthritic changes also noted. No suspicious bony lesions. Visualized ribs appear intact. Soft tissues: No suspicious soft tissue calcifications. IMPRESSION: Moderate acromioclavicular joint osteoarthritis and mild glenohumeral joint osteoarthritis. No fracture or dislocation. No gross soft tissue abnormality Dictated by: Payam Fuentes M.D. on 10/17/2021 at 15:33 Approved by: Payam Fuentes M.D. on 10/17/2021 at 15:35
== END ==
PROVIDERS: PCP Family Medicine; Referring Provider Family Medicine; Visit Provider Family Medicine
DX: M25.511 Pain in right shoulder (principal); M19.011 Primary osteoarthritis, right shoulder
CPT/HCPCS: 73030

== ENCOUNTER → 2021-12-05 09:14 | Outpatient (CLI) | payer OTHER, SELFPAY ==
[2021-12-05 10:23] LABS: Erythrocyte Sedimentation Rate 34 MM/HR (0-20)
[2021-12-05 11:06] LABS: C-Reactive Protein Quant 1.2 mg/dL (<1.0); Rheumatoid Factor < 8.6 IU/mL (<12.0)
[2021-12-08 17:43] LABS: ANA Screen, IFA Negative (.)
[2021-12-08 21:07] LABS: CCP Antibodies IgG/IgA 4 units (0-19)
== END ==
PROVIDERS: PCP Family Medicine; Referring Provider Family Medicine; Visit Provider Family Medicine
DX: M79.601 Pain in right arm (principal); M79.602 Pain in left arm
CPT/HCPCS: 36415; 85651; 86038; 86140; 86200; 86430

== ENCOUNTER 2022-01-31 09:45 | Emergency (ER) | payer OTHER, SELFPAY ==
[2022-01-31 09:49] VITALS: BP 199/96; PULSE 76; RESP 18; O2SAT 97
[2022-01-31 09:52] VITALS: BP 199/96; PULSE 73; RESP 18; TEMP 37.2; O2SAT 97; BMI 26.8
--- NOTE | 2022-01-31 09:57 | ED_ITS ---
HPI - General Adult General Chief complaint: Nasal Problem Stated complaint: BLOODY NOSE FOR 45 MINS ON BLOOD THINNERS Time Seen by Provider: 01/31/22 09:54 Source: patient Mode of arrival: Ambulatory Limitations: no limitations History of Present Illness HPI narrative: 61-year-old female. Has a history of factor 5 Leiden and has had multiple blood clots. Is on Coumadin. Her last INR check was approximately 3 weeks ago it was 2.5. She has had no changes to her Coumadin dosage is. She blew her nose approximately 45 minutes ago and started having bleeding from the left side. No problems breathing. Did provide some pressure but it continued to bleed so she came to the emergency department for evaluation. Related Data Home Medications Medication Instructions Recorded Confirmed Vitamin B-12 100 mcg PO QDAY #0 tabs 05/02/13 11/23/21 ferrous gluconate 240 mg (27 mg 65 mg PO Q DAY ##0 08/21/16 11/23/21 iron) tablet (Iron High Potency) cholecalciferol (vitamin D3) PO 05/23/19 11/23/21 multivitamin 1 cap PO DAILY 05/23/19 11/23/21 omega-3 fatty acids-fish oil PO 05/23/19 11/23/21 biotin 5,000 mcg disintegrating 5,000 mcg PO DAILY 02/12/20 11/23/21 tablet Previous Rx's Medication Instructions Recorded betamethasone dipropionate 0.05 % 1 joe topical QHS ##45 10/18/18 topical cream lidocaine 5 % topical patch 1 patch topical DAILY PRN back 05/15/20 pain #30 ea Estriol cream 0.2% See Rx Instructions .Route 10/16/20 .COMPLEX #90 days fluoxetine 20 mg capsule See Rx Instructions .Route 04/07/21 .COMPLEX #90 caps cefuroxime axetil 500 mg tablet 500 mg PO BID #20 tabs 07/31/21 sumatriptan succinate 25 mg tablet See Rx Instructions .Route 08/11/21 .COMPLEX #30 tabs warfarin 10 mg tablet See Rx Instructions .Route 10/07/21 .COMPLEX #30 tabs triamcinolone acetonide 0.1 % 1 applic topical BID #30 grams 10/20/21 topical cream warfarin 2 mg tablet See Rx Instructions .Route 11/13/21 .COMPLEX #90 tabs colchicine 0.6 mg tablet See Rx Instructions .Route 12/08/21 .COMPLEX #20 tabs Coagcheck Test Strips #18 ea 12/16/21 indomethacin 50 mg capsule 50 mg PO TIDP PRN gout flare #15 12/29/21 caps prednisone 10 mg tablet See Rx Instructions PO DAILY #45 12/29/21 tabs Allergies Allergy/AdvReac Type Severity Reaction Status Date / Time bacitracin [From CORTISPORIN] Allergy Unknown Verified 11/23/21 10:29 budesonide Allergy Unknown nasal Verified 11/23/21 10:29 [From RHINOCORT ALLERGY] swelling hydrocortisone Allergy Unknown Verified 11/23/21 10:29 [From CORTISPORIN] neomycin [From CORTISPORIN] Allergy Unknown Verified 11/23/21 10:29 polymyxin B Allergy Unknown Verified 11/23/21 10:29 [From CORTISPORIN] sulfamethoxazole Allergy Verified 11/23/21 10:29 [From Bactrim] trimethoprim [From Bactrim] Allergy Verified 11/23/21 10:29 meperidine [From DEMEROL] AdvReac Unknown vomiting Verified 11/23/21 10:29 STERI STRIPS Allergy Unknown rash Uncoded 11/23/21 10:29 Review of Systems Constitutional Constitutional: Reports system reviewed and no additional complaints, except as documented ENT Ears, Nose, Mouth, and Throat: Reports system reviewed and no additional complaints, except as documented Comments: Bleeding from left nostril After clamp was removed Does appear that there is area of erythema on the left septum without active bleeding Integumentary/Breasts Skin/Breast: Reports system reviewed and no additional complaints, except as documented Hematologic/Lymphatic On Anticoagulants: No Patient History Medical History Chicken pox (1963) DVT (deep venous thrombosis) (2003) Factor V Leiden (1960) Hayfever Right shoulder pain Surgical History Anesthesia History of abdominoplasty (2004) History of breast augmentation (2004) History of gastric bypass (2004) History of lumbosacral spine surgery (1993) History of lumbosacral spine surgery (1994) Status post delivery (1994) Family History Child Age: 26 Factor V deficiency Graves' disease Depression Anxiety Mental health problem Father Heart disease Lung cancer Grandfather Heart disease Mother Age: 87 Factor V deficiency Asthma TIA (transient ischemic attack) Grandfather Heart disease Heart attack Sister Age: 61 Hypertension Factor V deficiency Grandmother No problems noted. Grandmother MVA (motor vehicle accident) Sister Asthma Thyroid disorder Social History Smoking Status: Former smoker Smoking Status: Former smoker alcohol intake frequency: a few times a month Substance Use Type: does not use Exam Initial Vital Signs Initial Vital Signs: Vital Signs Temperature 98.9 F 01/31/22 09:52 Pulse Rate 73 01/31/22 09:52 Respiratory Rate 18 01/31/22 09:52 Blood Pressure 199/96 H 01/31/22 09:52 Pulse Oximetry 97 01/31/22 09:52 Oxygen Delivery Method 01/31/22 09:52 Const General: cooperative and healthy appearing HENNM Nose: other (Nose clamp in place) Throat: posterior oropharynx normal Resp Effort & Inspection: normal respiratory effort Cardio Rate: regular rate Skin General: no rashes or lesions noted Extrem General: normal to inspection and capillary refill normal Course Vital Signs Vital signs: Vital Signs - 8 hr 01/31/22 09:52 Temperature 98.9 F Pulse Rate 73 Respiratory Rate 18 Blood Pressure 199/96 H Pulse Oximetry 97 Oxygen Delivery Method Room Air Medical Decision Making MDM Narrative Medical decision making narrative: A nose clamp was placed. There was no bleeding around this. There is no posterior bleeding. After was removed she was observed for a period of time longer without any continued bleeding however was losing a very small amount. I did discuss with her things that she could try at home and she was sent home with a nose clamp. No indication for packing. She was given return precautions. She expressed understanding and agreement plan. Discharge Plan Departure Patient Disposition: Home Clinical Impression: Epistaxis Instructions: DI for Nosebleed Activity Restrictions/Additional Instructions: Continue to take all of your medications as directed. Please check your INR at home. Keep all of your scheduled medical appointments. Return to the emergency department for any new or worsening symptoms. Prescriptions: No Action biotin 5,000 mcg tablet,disintegrating 5,000 mcg PO DAILY Estriol cream 0.2% See Rx Instructions .ROUTE .COMPLEX Qty: 90 1RF Rx Instructions: Use 2 clicks per vagina nightly for 2 weeks, then twice weekly thereafter; Vitamin B-12 100 mcg PO QDAY Qty: 0 ferrous gluconate [Iron High Potency] 240 MG tablet 65 mg PO Q DAY Qty: 0 betamethasone dipropionate 0.05 % cream 1 joe Topical QHS Qty: 45 0RF fluoxetine 20 mg capsule See Rx Instructions .ROUTE .COMPLEX Qty: 90 1RF Dose Instruction: take 1 capsule by mouth once daily Rx Instructions: take 1 capsule by mouth once daily cefuroxime axetil 500 mg tablet 500 mg PO BID Qty: 20 0RF sumatriptan succinate 25 mg tablet See Rx Instructions .ROUTE .COMPLEX Qty: 30 2RF Dose Instruction: take 1 tablet by mouth if needed for migraines Rx Instructions: take 1 tablet by mouth if needed for migraines warfarin 10 mg tablet See Rx Instructions .ROUTE .COMPLEX Qty: 30 5RF Dose Instruction: take 1 tablet by mouth once daily as directed Rx Instructions: take 1 tablet by mouth once daily as directed triamcinolone acetonide 0.1 % cream 1 applic topical BID Qty: 30 3RF warfarin 2 mg tablet See Rx Instructions .ROUTE .COMPLEX Qty: 90 2RF Dose Instruction: take 3 tablets by mouth once daily ALONG WITH ONE 10MG WARFARIN OR DIRECTED Rx Instructions: take 3 tablets by mouth once daily ALONG WITH ONE 10MG WARFARIN OR DI RECTED colchicine 0.6 mg tablet See Rx Instructions .ROUTE .COMPLEX Qty: 20 3RF Dose Instruction: take 2 tablets by mouth ONCE FOLLOWED BY 1 tablet 1 hour LATER then take 1 daily Rx Instructions: take 2 tablets by mouth ONCE FOLLOWED BY 1 tablet 1 hour LATER then take 1 daily (DME) Coagcheck Test Strips See Rx Instructions .Route .MEDSUPPLY Qty: 18 11RF Rx Instructions: As directed indomethacin 50 mg capsule 50 mg PO TIDP PRN (Reason: gout flare) Qty: 15 0RF prednisone 10 mg tablet See Rx Instructions PO DAILY Qty: 45 2RF Rx Instructions: Take 2 tabs daily for 7 days then decrease to 1 tab daily multivitamin Capsule 1 cap PO DAILY omega-3 fatty acids-fish oil PO cholecalciferol (vitamin D3) PO lidocaine 5 % adhesive patch,medicated 1 patch TOP DAILY PRN (Reason: back pain) Qty: 30 0RF Rx Instructions: leave on most painful area for up to 12 hrs Referrals: Vale Tafoya MD [Primary Care Provider] -
[2022-01-31 10:00] VITALS: PULSE 69; O2SAT 95
[2022-01-31 10:01] VITALS: BP 144/69; PULSE 68; RESP 18; O2SAT 96
[2022-01-31 10:30] VITALS: BP 144/70; PULSE 67; RESP 18; O2SAT 96
== END 2022-01-31 11:05 | disposition home or self-care (01) ==
PROVIDERS: Emergency Provider Emergency Medicine; PCP Family Medicine
DX: R04.0 Epistaxis (principal); Z79.01 Long term (current) use of anticoagulants
CPT/HCPCS: 99281

== ENCOUNTER 2022-06-12 09:34 | Emergency (ER) | payer OTHER, SELFPAY ==
[2022-06-12] VITALS (77 sets, daily range): BP systolic 128–226; BP diastolic 66–128; PULSE 56–92; RESP 14–40; TEMP 36.3; O2SAT 94–100; BMI 28.3
--- NOTE | 2022-06-12 09:47 | DI.RAD.S_ITS ---
PROCEDURE: XR CHEST 1V INDICATIONS: chest pain TECHNIQUE: One view of the chest was acquired. COMPARISON: None. FINDINGS: Surgical changes and devices: None. Lungs and pleura: Lungs are clear. No pleural effusions or pneumothorax. Mediastinum: Mediastinal contours appear normal. Heart size is normal. Bones and chest wall: No suspicious bony lesions. Overlying soft tissues appear unremarkable. IMPRESSION: No acute radiographic abnormality. Dictated by: Oliver Lin M.D. on 06/12/2022 at 10:12 Approved by: Oliver Lin M.D. on 06/12/2022 at 10:12
--- NOTE | 2022-06-12 09:47 | ED_ITS ---
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 She said she was sitting in a fairly line when she felt sudden squeezing of her chest radiating up to her teeth. It started about 20 minutes prior to arrival he says it has decreased some but it is still present about a 5. She has no shortness of b reath. This never happened her before she has no known coronary artery disease. She is noted to be extremely hypertensive with blood pressure of 226 she has no known hypertension she is not on any medication. She is a nonsmoker. Related Data Home Medications Medication Instructions Recorded Confirmed ferrous gluconate 240 mg (27 mg 65 mg PO DAILY ##0 08/21/16 06/12/22 iron) tablet (Iron High Potency) multivitamin 1 cap PO DAILY 05/23/19 06/12/22 cholecalciferol (vitamin D3) 50 100 mcg PO DAILY 06/12/22 06/12/22 mcg (2,000 unit) capsule (Vitamin D3) colchicine 0.6 mg tablet 0.6 mg PO DAILY 06/12/22 06/12/22 docosahexaenoic acid 200 mg 200 mg PO DAILY 06/12/22 06/12/22 capsule (Algal Thompson-3 DHA) sumatriptan succinate 25 mg tablet See Rx Instructions .Route 06/12/22 06/12/22 .COMPLEX PRN Migraine Headache Previous Rx's Medication Instructions Recorded Coagcheck Test Strips #18 ea 12/16/21 warfarin 10 mg tablet See Rx Instructions .Route 04/07/22 .COMPLEX #30 tabs warfarin 2 mg tablet See Rx Instructions .Route 04/21/22 .COMPLEX #90 tabs Allergies Allergy/AdvReac Type Severity Reaction Status Date / Time bacitracin [From CORTISPORIN] Allergy Unknown Verified 06/12/22 10:11 budesonide Allergy Unknown nasal Verified 06/12/22 10:11 [From RHINOCORT ALLERGY] swelling hydrocortisone Allergy Unknown Verified 06/12/22 10:11 [From CORTISPORIN] neomycin [From CORTISPORIN] Allergy Unknown Verified 06/12/22 10:11 polymyxin B Allergy Unknown Verified 06/12/22 10:11 [From CORTISPORIN] sulfamethoxazole Allergy Verified 06/12/22 10:11 [From Bactrim] trimethoprim [From Bactrim] Allergy Verified 06/12/22 10:11 meperidine [From DEMEROL] AdvReac Unknown vomiting Verified 06/12/22 10:11 STERI STRIPS Allergy Unknown rash Uncoded 02/16/22 09:18 Review of Systems Review of Systems Narrative: GENERAL: Denies chills, fatigue, malaise, fever, sweats, travel HEENT: Denies sinus pain, ear pain, sore throat, difficulty swallowing, neck pain RESPIRATORY: Denies dyspnea, cough, wheezing, hemoptysis, sputum. CARDIOVASCULAR: See HPI GASTROINTESTINAL: Denies nausea, vomiting, abdominal pain, diarrhea, constipation, melena. : Denies dysuria, frequency, incontinence, hematuria, urinary retention, flank pain. MUSCULOSKELETAL: Denies weakness, joint pain, or bony pain SKIN: No rash, no erythema, no pruritus NEUROLOGIC: Denies weakness, dizziness, headache, numbness, change in speech, confusion PSYCHIATRIC: No concerning psychosocial issues. 12 point review of systems is negative except for those stated above and HPI Patient History Medical History Chicken pox (1963) DVT (deep venous thrombosis) (2003) Factor V Leiden (1959) Hayfever Right shoulder pain Surgical History Anesthesia History of abdominoplasty (2004) History of breast augmentation (2004) History of gastric bypass (2004) History of lumbosacral spine surgery (1993) History of lumbosacral spine surgery (1994) Status post delivery (1994) Family History Child Age: 26 Factor V deficiency Graves' disease Depression Anxiety Mental health problem Father Heart disease Lung cancer Grandfather Heart disease Mother Age: 88 Factor V deficiency Asthma TIA (transient ischemic attack) Grandfather Heart disease Heart attack Sister Age: 61 Hypertension Factor V deficiency Grandmother No problems noted. Grandmother MVA (motor vehicle accident) Sister Asthma Thyroid disorder Social History Smoking Status: Former smoker Smoking Status: Former smoker alcohol intake frequency: a few times a month Substance Use Type: does not use Exam Initial Vital Signs Initial Vital Signs: Vital Signs Temperature 97.3 F L 06/12/22 09:35 Pulse Rate 88 06/12/22 09:35 Respiratory Rate 24 06/12/22 09:35 Blood Pressure 226/100 H 06/12/22 09:35 Pulse Oximetry 98 06/12/22 09:35 Oxygen Delivery Method 06/12/22 09:35 GENERAL: Alert 61-year-old female and in no acute distress. HEENT: Head atraumatic,EOMI, pupils reactive, face symmetric, moist mucous membranes CARDIOVASCULAR: Regular rate and rhythm without murmurs, rubs or gallops. RESPIRATORY: Breath sounds equal bilaterally, no wheezes rales or rhonchi. ABDOMEN: Soft, nontender. Normoactive bowel sounds all 4 quadrants. No guar ding or rebound. EXTREMITIES: Normal range of motion, no clubbing or edema. Neurovascularly intact NEUROLOGICAL: Alert and oriented x4.Normal gait and speech. SKIN: Warm, dry, no laceration, no petechiae, no rashes or lesions. Scores HEART Score Heart Score history: Highly Suspicious Heart Score EKG: Normal Heart Score Age: 45-64 years old Heart Score risk factors: No known risk factors Heart Score troponin: < or = to normal limit Heart Score Total: 3 Course Orders Ordered: Discontinued Medications Sodium Chloride (Normal Saline 0.9%) 1,000 mls @ 150 mls/hr IV CONT LOU Last Infusion: 06/12/22 17:11 Dose: 0 mls/hr Documented By: Infusion: 06/12/22 15:00 Dose: 0 mls/hr Documented By: Admin: 06/12/22 09:56 Dose: 150 mls/hr Documented By: BASILIO Nitroglycerin (Nitroglycerin 0.4 Mg Sl Tab) 0.4 mg SL [id number] PRN PRN Reason: chest Last Admin: 06/12/22 09:55 Dose: 0.4 mg Documented By: BASILIO Vital Signs Vital signs: Vital Signs - 8 hr 06/12/22 09:55 06/12/22 09:35 06/12/22 09:41 Temperature 97.3 F L Pulse Rate 88 Respiratory Rate 24 Blood Pressure 197/98 H 226/100 H 226/100 H Pulse Oximetry 98 Oxygen Delivery Method Room Air 06/12/22 09:41 06/12/22 09:45 06/12/22 09:47 Temperature Pulse Rate 87 79 Respiratory Rate 20 20 Blood Pressure 197/128 H Pulse Oximetry 96 97 Oxygen Delivery Method 06/12/22 09:47 06/12/22 09:50 06/12/22 09:55 Temperature Pulse Rate 78 77 73 Respiratory Rate 23 28 H 24 Blood Pressure Pulse Oximetry 95 97 97 Oxygen Delivery Method 06/12/22 10:00 06/12/22 10:01 06/12/22 10:01 Temperature Pulse Rate 86 88 Respiratory Rate 23 25 H Blood Pressure 144/82 H Pulse Oximetry 96 95 Oxygen Delivery Method 06/12/22 10:05 06/12/22 10:05 06/12/22 10:10 Temperature Pulse Rate 74 Respiratory Rate 20 Blood Pressure 145/77 H 135/77 Pulse Oximetry 94 Oxygen Delivery Method Room Air 06/12/22 10:10 06/12/22 10:15 06/12/22 10:15 Temperature Pulse Rate 71 69 Respiratory Rate 17 23 Blood Pressure 140/75 Pulse Oximetry 94 96 Oxygen Delivery Method 06/12/22 10:20 06/12/22 10:20 06/12/22 10:25 Temperature Pulse Rate 77 74 Respiratory Rate 20 27 H Blood Pressure 149/84 H Pulse Oximetry 96 95 Oxygen Delivery Method 06/12/22 10:25 06/12/22 10:30 06/12/22 10:30 Temperature Pulse Rate 84 Respiratory Rate 24 Blood Pressure 149/85 H 179/93 H Pulse Oximetry 96 Oxygen Delivery Method 06/12/22 10:35 06/12/22 10:35 06/12/22 10:40 Temperature Pulse Rate 84 69 Respiratory Rate 24 19 Blood Pressure 165/105 H Pulse Oximetry 96 97 Oxygen Delivery Method 06/12/22 10:40 06/12/22 10:45 06/12/22 10:45 Temperature Pulse Rate 65 Respiratory Rate 14 Blood Pressure 160/80 H 149/71 H Pulse Oximetry 97 Oxygen Delivery Method 06/12/22 10:50 06/12/22 10:50 06/12/22 10:55 Temperature Pulse Rate 66 69 Respiratory Rate 19 20 Blood Pressure 151/74 H Pulse Oximetry 97 97 Oxygen Delivery Method 06/12/22 10:55 06/12/22 11:00 06/12/22 11:00 Temperature Pulse Rate 65 Respiratory Rate 18 Blood Pressure 139/74 142/80 H Pulse Oximetry 97 Oxygen Delivery Method 06/12/22 11:05 06/12/22 11:05 06/12/22 11:10 Temperature Pulse Rate 62 62 Respiratory Rate 15 18 Blood Pressure 146/78 H Pulse Oximetry 99 99 Oxygen Delivery Method 06/12/22 11:10 06/12/22 11:15 06/12/22 11:15 Temperature Pulse Rate 56 L Respiratory Rate 16 Blood Pressure 147/84 H 149/84 H Pulse Oximetry 99 Oxygen Delivery Method Room Air 06/12/22 11:20 06/12/22 11:20 06/12/22 11:25 Temperature Pulse Rate 56 L Respiratory Rate 18 Blood Pressure 151/80 H 147/79 H Pulse Oximetry 100 Oxygen Delivery Method 06/12/22 11:25 06/12/22 11:30 06/12/22 11:30 Temperature Pulse Rate 66 64 Respiratory Rate 19 19 Blood Pressure 136/73 Pulse Oximetry 100 97 Oxygen Delivery Method 06/12/22 11:35 06/12/22 11:35 06/12/22 11:40 Temperature Pulse Rate 66 71 Respiratory Rate 20 20 Blood Pressure 143/75 H Pulse Oximetry 98 96 Oxygen Delivery Method 06/12/22 11:40 06/12/22 11:45 06/12/22 11:45 Temperature Pulse Rate 70 Respiratory Rate 20 Blood Pressure 173/77 H 145/75 H Pulse Oximetry 98 Oxygen Delivery Method 06/12/22 11:50 06/12/22 11:50 06/12/22 11:55 Temperature Pulse Rate 64 66 Respiratory Rate 23 22 Blood Pressure 142/70 H Pulse Oximetry 98 98 Oxygen Delivery Method 06/12/22 11:55 06/12/22 12:00 06/12/22 12:00 Temperature Pulse Rate 68 Respiratory Rate 21 Blood Pressure 155/79 H 143/77 H Pulse Oximetry 100 Oxygen Delivery Method 06/12/22 12:05 06/12/22 12:05 06/12/22 12:10 Temperature Pulse Rate 67 64 Respiratory Rate 20 22 Blood Pressure 130/67 Pulse Oximetry 99 99 Oxygen Delivery Method 06/12/22 12:10 06/12/22 12:15 06/12/22 12:15 Temperature Pulse Rate 67 Respiratory Rate 20 Blood Pressure 128/66 136/70 Pulse Oximetry 99 Oxygen Delivery Method 06/12/22 12:20 06/12/22 12:20 06/12/22 12:25 Temperature Pulse Rate 67 71 Respiratory Rate 18 24 Blood Pressure 145/70 H Pulse Oximetry 99 98 Oxygen Delivery Method 06/12/22 12:25 06/12/22 12:30 06/12/22 12:30 Temperature Pulse Rate 69 Respiratory Rate 23 Blood Pressure 144/74 H 145/70 H Pulse Oximetry 99 Oxygen Delivery Method 06/12/22 12:35 06/12/22 12:35 06/12/22 12:40 Temperature Pulse Rate 66 77 Respiratory Rate 17 25 H Blood Pressure 142/76 H Pulse Oximetry 100 96 Oxygen Delivery Method 06/12/22 12:40 06/12/22 12:45 06/12/22 12:45 Temperature Pulse Rate 62 Respiratory Rate 19 Blood Pressure 140/76 141/75 H Pulse Oximetry 95 Oxygen Delivery Method 06/12/22 12:50 06/12/22 12:50 06/12/22 12:55 Temperature Pulse Rate 67 Respiratory Rate 20 Blood Pressure 131/72 142/74 H Pulse Oximetry 97 Oxygen Delivery Method 06/12/22 12:55 06/12/22 13:00 06/12/22 13:00 Temperature Pulse Rate 68 65 Respiratory Rate 21 22 Blood Pressure 144/72 H Pulse Oximetry 98 97 Oxygen Delivery Method 06/12/22 13:05 06/12/22 13:05 06/12/22 13:10 Temperature Pulse Rate 74 79 Respiratory Rate 20 21 Blood Pressure 153/101 H Pulse Oximetry 98 98 Oxygen Delivery Method 06/12/22 13:10 06/12/22 13:15 06/12/22 13:15 Temperature Pulse Rate 91 H Respiratory Rate 24 Blood Pressure 166/93 H 167/82 H Pulse Oximetry 97 Oxygen Delivery Method 06/12/22 13:20 06/12/22 13:20 06/12/22 13:28 Temperature Pulse Rate 84 Respiratory Rate 20 Blood Pressure 170/82 H 192/88 H Pulse Oximetry 96 Oxygen Delivery Method 06/12/22 13:28 06/12/22 13:30 06/12/22 13:30 Temperature Pulse Rate 75 74 Respiratory Rate 16 18 Blood Pressure 175/80 H Pulse Oximetry 98 98 Oxygen Delivery Method 06/12/22 13:35 06/12/22 13:35 06/12/22 13:40 Temperature Pulse Rate 71 68 Respiratory Rate 20 20 Blood Pressure 169/84 H Pulse Oximetry 98 99 Oxygen Delivery Method 06/12/22 13:40 06/12/22 13:45 06/12/22 13:45 Temperature Pulse Rate 67 Respiratory Rate 19 Blood Pressure 168/86 H 160/87 H Pulse Oximetry 99 Oxygen Delivery Method 06/12/22 13:50 06/12/22 13:50 06/12/22 13:55 Temperature Pulse Rate 67 71 Respiratory Rate 20 22 Blood Pressure 143/76 H Pulse Oximetry 99 99 Oxygen Delivery Method 06/12/22 13:55 06/12/22 14:00 06/12/22 14:00 Temperature Pulse Rate 80 Respiratory Rate 24 Blood Pressure 152/86 H 151/86 H Pulse Oximetry 98 Oxygen Delivery Method 06/12/22 14:05 06/12/22 14:05 06/12/22 14:10 Temperature Pulse Rate 84 78 Respiratory Rate 20 24 Blood Pressure 172/84 H Pulse Oximetry 97 98 Oxygen Delivery Method 06/12/22 14:10 06/12/22 14:15 06/12/22 14:15 Temperature Pulse Rate 92 H Respiratory Rate 20 Blood Pressure 143/99 H 143/96 H Pulse Oximetry 98 Oxygen Delivery Method 06/12/22 14:20 06/12/22 14:20 06/12/22 14:26 Temperature Pulse Rate 74 70 Respiratory Rate 22 20 Blood Pressure 158/92 H Pulse Oximetry 99 99 Oxygen Delivery Method 06/12/22 14:26 06/12/22 14:30 06/12/22 14:30 Temperature Pulse Rate 69 Respiratory Rate 21 Blood Pressure 148/89 H 151/82 H Pulse Oximetry 100 Oxygen Delivery Method 06/12/22 14:35 06/12/22 14:35 06/12/22 14:40 Temperature Pulse Rate 71 Respiratory Rate 16 Blood Pressure 165/90 H 163/83 H Pulse Oximetry 99 Oxygen Delivery Method 06/12/22 14:40 06/12/22 14:45 06/12/22 14:45 Temperature Pulse Rate 68 70 Respiratory Rate 21 20 Blood Pressure 157/75 H Pulse Oximetry 98 99 Oxygen Delivery Method 06/12/22 14:50 06/12/22 14:50 06/12/22 14:55 Temperature Pulse Rate 68 70 Respiratory Rate 19 20 Blood Pressure 156/78 H Pulse Oximetry 99 99 Oxygen Delivery Method 06/12/22 14:55 06/12/22 15:00 06/12/22 15:00 Temperature Pulse Rate 74 Respiratory Rate 20 Blood Pressure 161/84 H 150/79 H Pulse Oximetry 97 Oxygen Delivery Method 06/12/22 15:05 06/12/22 15:05 Temperature Pulse Rate 77 Respiratory Rate 22 Blood Pressure 158/80 H Pulse Oximetry 99 Oxygen Delivery Method MDM - Chest Pain Lab Data Result diagrams: 06/12/22 09:50 06/12/22 09:50 Labs: Lab Results 06/12/22 06/12/22 06/12/22 Range/Units 09:50 09:50 09:50 WBC 9.4 (4.5-11.0) X10^3/uL RBC 4.20 (4.0-5.2) X10^6/uL Hgb 13.2 (12.0-16.0) g/dL Hct 39.5 (36-46) % MCV 94.0 (80-100) fL MCH 31.5 (26-34) PG MCHC 33.5 (30-36) % RDW 16.2 H (11.6-14.8) % Plt Count 234 (150-400) X10^3/uL Neut % (Auto) 64.0 (50-75) % Lymph % (Auto) 28.4 (25-40) % [place] % (Auto) 6.6 (3-14) % Eos % (Auto) 0.7 L (2-4) % Baso % (Auto) 0.3 (0-2) % Neut # (Auto) 6000 (4199-0644) /uL Lymph # (Auto) 2700 (8341-0217) /uL [place] # (Auto) 600 (0-900) /uL Eos # (Auto) 100 (0-450) /uL Baso # (Auto) 0 (0-100) /uL PT 33.5 H (10.1-12.7) SECONDS INR 2.9 H (0.9-1.3) APTT 44 H (26-36) SECONDS Sodium 139 (137-145) mmol/L Potassium 4.3 (3.4-5.1) mmol/L Chloride 105 (98-107) mmol/L Carbon Dioxide 23 (22-32) mmol/L BUN 16 (7-17) mg/dL Creatinine 0.71 (0.52-1.04) mg/dL Estimated GFR > 60 (>60) mL/min BUN/Creatinine Ratio 22.5 H (6-22) Glucose 103 (80-110) mg/dL Calcium 9.3 (8.4-10.2) mg/dL Total Bilirubin 1.0 (0.2-1.3) mg/dL AST 42 H (14-36) IU/L ALT 40 H (<35) IU/L Alkaline Phosphatase 74 (38-126) U/L Total Creatine Kinase 126 (30-135) U/L CK-MB (CK-2) 1.33 (<2.37) ng/mL CK-MB (CK-2) Rel Index 1.1 L (1.5-5.0) % Troponin I < 0.012 (0.01-0.034) ng/mL NT-Pro-B Natriuret Pep 197 H (<125) pg/mL Total Protein 7.7 (6.3-8.2) g/dL Albumin 4.5 (3.5-5.0) g/dL Globulin 3.2 (1.7-4.1) g/dL Albumin/Globulin Ratio 1.4 (1.0-2.8) Lipase 231 (23-300) U/L SARS-CoV-2 (PCR) (Negative) 06/12/22 06/12/22 Range/Units 10:24 11:50 WBC (4.5-11.0) X10^3/uL RBC (4.0-5.2) X10^6/uL Hgb (12.0-16.0) g/dL Hct (36-46) % MCV (80-100) fL MCH (26-34) PG MCHC (30-36) % RDW (11.6-14.8) % Plt Count (150-400) X10^3/uL Neut % (Auto) (50-75) % Lymph % (Auto) (25-40) % [place] % (Auto) (3-14) % Eos % (Auto) (2-4) % Baso % (Auto) (0-2) % Neut # (Auto) (3982-8276) /uL Lymph # (Auto) (5755-5254) /uL [place] # (Auto) (0-900) /uL Eos # (Auto) (0-450) /uL Baso # (Auto) (0-100) /uL PT (10.1-12.7) SECONDS INR (0.9-1.3) APTT (26-36) SECONDS Sodium (137-145) mmol/L Potassium (3.4-5.1) mmol/L Chloride (98-107) mmol/L Carbon Dioxide (22-32) mmol/L BUN (7-17) mg/dL Creatinine (0.52-1.04) mg/dL Estimated GFR (>60) mL/min BUN/Creatinine Ratio (6-22) Glucose (80-110) mg/dL Calcium (8.4-10.2) mg/dL Total Bilirubin (0.2-1.3) mg/dL AST (14-36) IU/L ALT (<35) IU/L Alkaline Phosphatase (38-126) U/L Total Creatine Kinase (30-135) U/L CK-MB (CK-2) (<2.37) ng/mL CK-MB (CK-2) Rel Index (1.5-5.0) % Troponin I < 0.012 (0.01-0.034) ng/mL NT-Pro-B Natriuret Pep (<125) pg/mL Total Protein (6.3-8.2) g/dL Albumin (3.5-5.0) g/dL Globulin (1.7-4.1) g/dL Albumin/Globulin Ratio (1.0-2.8) Lipase (23-300) U/L SARS-CoV-2 (PCR) Negative (Negative) Imaging Data Chest x-ray: Radiologist's Impression: XRay Report Signed Patient: Cecy Alonzo MR#: [id number] : 1960 Acct:[id number] Age/Sex: 61 / F Date of Service: 06/12/22 Loc: ED Accession Number: [id number] ?? Procedure: XR chest 1V Ordering Provider: Padmaja Greene D.O. PROCEDURE:? XR CHEST 1V ? INDICATIONS:? chest pain ? TECHNIQUE:? One view of the chest was acquired.? ? COMPARISON:? None. ? FINDINGS:? ? Surgical changes and devices:? None.? ? Lungs and pleura:? Lungs are clear.? No pleural effusions or pneumothorax.? ? Mediastinum:? Mediastinal contours appear normal.? Heart size is normal.? ? Bones and chest wall:? No suspicious bony lesions.? Overlying soft tissues appear unremarkable.? ? IMPRESSION:? No acute radiographic abnormality. ? ? Dictated by: Oliver Lin M.D. on 06/12/2022 at 10:12 ? ? ECG Data Interpretation: Normal sinus rhythm rate 74 NC interval 212 QRS 88 QTC 412, no ST changes no T- wave inversions 1st degree AV block Normal sinus rhythm rate [address] changes similar to previous EKG MDM Narrative Medical decision making narrative: Patient today presents with concerning symptoms of coronary artery disease acute coronary syndrome. Initially noted to be quite hypertensive with systolic greater than 200. Symptoms resolved after 1 nitroglycerin. Blood pressure seem to level out no still mildly elevated she had no recurrence of symptoms she has 2- troponins normal EKGs. Not able to get stress test over the weekend is called around to a couple local facilities that they are not accepting patients this time. We were able to get her a treadmill stress test today. I spoke with Dr. Chaves who read the stress test and stated that it was low risk is and normal. Chest pain may have been caused from significant hypertension. Discussed with patient need to monitor blood pressure at home and follow-up with PCP. I have also notified Dr. Smith of the patient and plan to follow-up. She will also likely need an echo as well. Strict return precautions is given to patient. Discharge Plan Departure Patient Disposition: Home Clinical Impression: Chest pain, Hypertension Instructions: High Blood Pressure, DI for Chest Pain Activity Restrictions/Additional Instructions: *You have been diagnosed with chest pain, hypertension *What to do: At this time please monitor blood pressure at home. Check it once daily and record it. You had a stress test today in the emergency department which was negative. *Continue to take medications as directed *Follow up with your primary care provider in 2-3 days or call [phone] *Return to ER if you should have increasing chest pain pressure blood pressure greater than 190/100 or any new, worsening or concerning symptoms Prescriptions: No Action ferrous gluconate [Iron High Potency] 240 MG tablet 65 mg PO DAILY Qty: 0 (DME) Coagcheck Test Strips See Rx Instructions .Route .MEDSUPPLY Qty: 18 11RF Rx Instructions: As directed warfarin 10 mg tablet See Rx Instructions .ROUTE .COMPLEX Qty: 30 5RF Dose Instruction: take 1 tablet by mouth once daily as directed Rx Instructions: 14 mg 5 x weekMon/Wed/Fri/Sat/Sun, 10 mg 2 days (Wed/) warfarin 2 mg tablet See Rx Instructions .ROUTE .COMPLEX Qty: 90 3RF Dose Instruction: take 3 tablets by mouth once daily ALONG WITH ONE 10MG WARFARIN OR DIRECTED Rx Instructions: 14 mg 5 x weekWed/Wed/Fri/Sat/Sun, 10 mg 2 days (Wed/) multivitamin Capsule 1 cap PO DAILY Algal Thompson-3 DHA 200 mg Capsule 200 mg PO DAILY sumatriptan succinate 25 mg tablet See Rx Instructions .ROUTE .COMPLEX PRN (Reason: Migraine Headache) Rx Instructions: take 1 tablet by mouth if needed for migraines colchicine 0.6 mg tablet 0.6 mg PO DAILY cholecalciferol (vitamin D3) [Vitamin D3] 50 mcg (2,000 unit) Capsule 100 mcg PO DAILY Referrals: Vale Tafoya MD [Primary Care Provider] - Stand Alone Forms: Work Release Note Visit Report Forms: Patient Portal/API
[2022-06-12] MEDS: NITROGLYCERIN 0.4 MG SL TAB SL (09:55)
[2022-06-12] MEDS: SODIUM CHLORIDE 0.9% 1,000 ML 150 ML IV (09:56)
[2022-06-12 10:00] LABS: Add Manual Diff / Slide Review NO; Basophils Absolute Auto 0 /uL (0-100); Basophils Percent Auto 0.3 % (0-2); Eosinophils Absolute Auto 100 /uL (0-450); Eosinophils Percent Auto 0.7 % (2-4); Hematocrit 39.5 % (36-46); Hemoglobin 13.2 g/dL (12.0-16.0); Lymphocytes Absolute Auto 2700 /uL (1100-4500); Lymphocytes Percent Auto 28.4 % (25-40); Mean Corpuscular HGB Conc 33.5 % (30-36); Mean Corpuscular Hemoglobin 31.5 PG (26-34); Monocytes Absolute Auto 600 /uL (0-900); Monocytes Percent Auto 6.6 % (3-14); Neutrophils Absolute Auto 6000 /uL (1500-7000); Platelet Count 234 X10^3/uL (150-400); Red Cell Distribution Width 16.2 % (11.6-14.8); White Blood Cell Count 9.4 X10^3/uL (4.5-11.0)
[2022-06-12 10:05] LABS: INR 2.9 (0.9-1.3); Prothrombin Time 33.5 SECONDS (10.1-12.7)
[2022-06-12 10:08] LABS: PTT Partial Thromboplastin Tim 44 SECONDS (26-36)
[2022-06-12 10:11] LABS: Alanine Aminotransferase 40 IU/L (<35); Albumin 4.5 g/dL (3.5-5.0); Albumin Globulin Ratio 1.4 (1.0-2.8); Alkaline Phosphatase 74 U/L (38-126); Aspartate Aminotransferase 42 IU/L (14-36); BUN Creatinine Ratio 22.5 (6-22); Blood Urea Nitrogen 16 mg/dL (7-17); Calcium 9.3 mg/dL (8.4-10.2); Carbon Dioxide 23 mmol/L (22-32); Chloride 105 mmol/L (98-107); Creatine Kinase 126 U/L (30-135); Estimated Glomerular Filt Rate > 60 mL/min (>60); Globulin 3.2 g/dL (1.7-4.1); Glucose 103 mg/dL (80-110); Lipase 231 U/L (23-300); Potassium 4.3 mmol/L (3.4-5.1); Sodium 139 mmol/L (137-145); Total Protein 7.7 g/dL (6.3-8.2)
[2022-06-12 10:22] LABS: NT-proBNP (BNP-Adult 18+) 197 pg/mL (<125); Troponin I < 0.012 ng/mL (0.01-0.034)
[2022-06-12 10:26] LABS: CKMB % Relative Index 1.1 % (1.5-5.0); Creatine Kinase MB 1.33 ng/mL (<2.37); HEMOLYSIS 39 (0-50)
[2022-06-12 10:43] LABS: COVID19 -Nasal RAPID Negative (Negative)
[2022-06-12 12:21] LABS: Troponin I < 0.012 ng/mL (0.01-0.034)
--- NOTE | 2022-06-12 19:15 | DI.NM.S_ITS ---
DATE OF SERVICE: 06/12/2022 PROCEDURE PERFORMED: Exercise treadmill stress test without imaging. ORDERING PROVIDER: Dr. Padmaja Greene. INDICATION: The patient is a 61-year-old female who presented to the emergency department with ongoing chest discomfort but with a negative evaluation. She was found to be severely hypertensive. FINDINGS: 1. The patient was able to exercise for 9 minutes, 26 seconds on a standard Jett protocol, suggesting excellent exercise capacity with an AGUSTIN of -40%, achieving 10.1 METs. 2. She had a normal heart rate response to exercise, achieving a maximum heart rate of 147 BPM (92% of her predicted maximum). She had a mild hypertensive blood pressure response with a resting blood pressure 150/90, increasing to a maximum of 210/100. 3. She had no chest discomfort or other anginal symptoms although noted a fleeting, squeezing sensation that correlated with isolated PVCs. 4. Her resting ECG shows sinus rhythm with normal ST segments. There are no significant ST-segment shifts or arrhythmias except for isolated PVCs, but no complex arrhythmias. IMPRESSION: 1. Normal stress test for ischemia. 2. Excellent exercise capacity without anginal discomfort, but occasional symptomatic PVCs and a modest hypertensive blood pressure response to exercise. Cecy Alonzo - KARTHIK/patrica/graeme doc#: [id number]/job#: [id number] dd: 06/12/2022 16:50:00 dt: 06/12/2022 19:08:00 DICTATING /COPIES TO: Shaun Chaves MD COPIES MNE: KHRIS;
== END 2022-06-12 17:23 | disposition home or self-care (01) ==
PROVIDERS: Emergency Provider Emergency Medicine; PCP Family Medicine
DX: R07.9 Chest pain, unspecified (principal); I10 Essential (primary) hypertension; Z20.822 Contact with and (suspected) exposure to COVID-19
CPT/HCPCS: 36415; 71045; 80053; 82550; 82553; 83690; 83880; 84484; 85025; 85610; 85730; 87635; 93005; 93017; 99284; C9803

== ENCOUNTER → 2022-06-30 09:11 | Outpatient (CLI) | payer OTHER, SELFPAY ==
--- NOTE | 2022-06-30 09:11 | DI.ECHO.S_ITS ---
[facility] +---------+ : : [address] : [place] : : : : [id number] : : : : Phone: [phone]+ Echocardiogram Report + + :Name: BRII CASTLE Study Date: 06/30/2022 Height: 69 in : :[facility] ReadingLocation: Weight: 197 lb : : Gender: Female BSA: 2.1 m2 : :: 1960 Age: 61 yrs BP: 199/98 mmHg: :Reason For Study: Chest pain : :Ordering Physician: JONNIE, : :KARLEE Rausch Performed By: Vinicio Scott : :Referring: KARLEE CRISTINA : + + Interpretation Summary 1) Normal left ventricular thickness, size, wall motion, and systolic function (EF 55-60%). 2) Normal right ventricular size and function. 3) No significant valvular abnormalities. 4) No prior Echo available for comparison. Procedure: A two-dimensional transthoracic echocardiogram with color flow and Doppler was performed. The study quality was technically adequate. There is no prior echocardiogram noted for this patient. The patient was in normal sinus rhythm during the exam. Left Ventricle: The left ventricle is normal in size and wall thickness. Left ventricular systolic function is normal. The ejection fraction is estimated to be 55-60%. There are no focal wall motion abnormalities. Diastolic parameters suggest probable normal left ventricular diastolic function and normal filling pressures. Right Ventricle: The right ventricle is normal in size and function. Atria: Both atria are normal in size. The interatrial septum grossly appears intact with no obvious evidence for an atrial septal defect. Mitral Valve: The mitral valve is normal in structure and function. There is no mitral regurgitation noted. Aortic Valve: The aortic valve is normal in structure and function. There is no aortic valve stenosis. There is trace aortic regurgitation. Tricuspid Valve: The tricuspid valve is normal in structure and function. There is trace tricuspid regurgitation. Pulmonary artery pressures cannot be estimated because of the lack of a measurable TR jet velocity. Pulmonic Valve: The pulmonic valve is normal in structure and function. There is trace pulmonic regurgitation. Great Vessels: The aortic root is normal size. The dimensions of the ascending aorta are normal. The IVC is of normal diameter and collapses greater than 50% with a sniff. This suggests a low right atrial pressure of 3 mm Hg. Pericardium/ Pleura There is no pericardial effusion. There is no pleural effusion. MMode/2D Measurements & Calculations LVIDd: 4.8 cm LVOT diam: 2.1 cm LVIDs: 3.4 cm Ao root diam: 3.0 cm FS: 29.2 % asc Aorta Diam: 3.3 cm IVSd: 1.1 cm LVPWd: 1.1 cm LV alexis. diameter/BSA (cm/m^2): 2.3 LV sys. diameter/BSA (cm/m^2): 1.7 LA dimension: 3.5 cm RA long axis: 5.0 cm LA A2 area: 16.5 cm2 LA A4 area: 16.3 cm2 LA length (vol): 4.9 cm LA vol: 46.2 ml LA vol index: 22.5 ml/m2 TAPSE_phl: 2.0 cm Doppler Measurements & Calculations Ao V2 max: 185.0 cm/sec LVOT Max Nikc: 142.0 cm/sec Ao V2 mean: 130.0 cm/sec LV V1 max P.1 mmHg Ao max P.0 mmHg LV V1 VTI: 30.4 cm Ao mean P.0 mmHg PRUDENCIO(I,D): 2.6 cm2 Ao V2 VTI: 40.7 cm PRUDENCIO(V,D): 2.7 cm2 sev ratio: 0.75 PRUDENCIO indexed to BSA (cm^2/m^2): 1.3 MV E max nick: 68.4 cm/sec SV(LVOT): 105.3 ml MV A max nick: 73.7 cm/sec MV E/A: 0.93 Med Peak E' Nick: 7.9 cm/sec E/E' med: 8.6 Lat Peak E' Nick: 10.8 cm/sec E/E' lat: 6.3 E/e' average: 7.5 MV dec time: 0.36 sec AV VR_phl: 0.77 MV P1/2t-pr_phl: 104.0 msec PRUDENCIO(VTI)/BSA_phl: 1.3 Reading Physician:02:03 PM
== END ==
PROVIDERS: PCP Family Medicine; Referring Provider Family Medicine; Visit Provider Family Medicine
DX: R07.9 Chest pain, unspecified (principal); I10 Essential (primary) hypertension
CPT/HCPCS: 93306

== ENCOUNTER → 2023-02-04 10:38 | Outpatient (CLI) | payer OTHER, SELFPAY ==
--- NOTE | 2023-02-04 | DI.MG.S_ITS ---
BILATERAL DIGITAL SCREENING MAMMOGRAM 3D/2D WITH CAD WITH AUGMENTATION: 02/04/2023 CLINICAL: Patient presents for routine screening. S/P bilateral augmentation. Comparison is made to exams dated: 03/26/2020 mammogram, 06/04/2021 mammogram, 01/11/2019 mammogram, and 01/10/2018 mammogram - [facility]. There are scattered areas of fibroglandular density in both breasts (category b / 25%-50% glandular tissue). Current study was also evaluated with a Computer Aided Detection (CAD) system. Bilateral breast implants are stable. There are benign calcifications in both breasts. No significant masses, calcifications, or other findings are seen in either breast. There has been no significant interval change. IMPRESSION: BENIGN There is no mammographic evidence of malignancy. A 1 year screening mammogram is recommended. Based on the Tyrer Cuzick model (a risk assessment model) the patient's lifetime risk is 9.3% and her 10 year risk is 4.0%. According to the ACR, ACS, and NCCN guidelines, an annual breast MRI exam along with mammogram is recommended if the patient's lifetime risk is 20% or greater. This exam was interpreted at Station ID: [id number]. NOTE: For mammograms, a report in lay terms will be sent to the patient. Approximately 15% of breast malignancies will not be visualized mammographically. In the management of a palpable breast mass, a negative mammogram must not discourage biopsy of a clinically suspicious lesion. Electronically Signed By: Eric alvarez/omaira:02/04/2023 18:11:14 letter sent: Normal Exam ACR BI-RADS Category 2: Benign Finding(s) 3342F
== END ==
PROVIDERS: PCP Family Medicine; Referring Provider Family Medicine; Visit Provider Family Medicine
DX: Z12.31 Encounter for screening mammogram for malignant neoplasm of breast (principal); Z98.82 Breast implant status
CPT/HCPCS: 77063; 77067

== ENCOUNTER → 2023-07-24 07:30 | Outpatient (CLI) | payer OTHER, SELFPAY ==
[2023-07-24 08:48] LABS: Add Manual Diff / Slide Review NO; Basophils Absolute Auto 0 /uL (0-100); Basophils Percent Auto 0.5 % (0-2); Eosinophils Absolute Auto 100 /uL (0-450); Eosinophils Percent Auto 1.7 % (2-4); Hematocrit 38.6 % (36-46); Lymphocytes Absolute Auto 2200 /uL (1100-4500); Lymphocytes Percent Auto 32.9 % (25-40); Mean Corpuscular HGB Conc 33.6 % (30-36); Mean Corpuscular Hemoglobin 30.9 PG (26-34); Mean Corpuscular Volume 92.1 fL (80-100); Monocytes Absolute Auto 500 /uL (0-900); Monocytes Percent Auto 7.1 % (3-14); Neutrophils Absolute Auto 3900 /uL (1500-7000); Neutrophils Percent Auto 57.8 % (50-75); Platelet Count 213 X10^3/uL (150-400); Red Blood Cell Count 4.19 X10^6/uL (4.0-5.2); Red Cell Distribution Width 13.9 % (11.6-14.8); White Blood Cell Count 6.8 X10^3/uL (4.5-11.0)
[2023-07-24 08:55] LABS: INR 1.3 (0.9-1.3); Prothrombin Time 15.2 SECONDS (9.4-12.5)
[2023-07-24 08:58] LABS: PTT Partial Thromboplastin Tim 37 SECONDS (25.1-36.5)
[2023-07-24 09:03] LABS: Alanine Aminotransferase 23 IU/L (<35); Albumin 4.1 g/dL (3.5-5.0); Albumin Globulin Ratio 1.5 (1.0-2.8); Alkaline Phosphatase 72 U/L (38-126); Aspartate Aminotransferase 27 IU/L (14-36); BUN Creatinine Ratio 24.6 (6-22); Bilirubin Total 1.3 mg/dL (0.2-1.3); Blood Urea Nitrogen 16 mg/dL (7-17); Calcium 9.6 mg/dL (8.4-10.2); Carbon Dioxide 27 mmol/L (22-32); Chloride 106 mmol/L (98-107); Cholesterol 226 mg/dL (140-199); Estimated Glomerular Filt Rate > 60 mL/min (>60); Globulin 2.8 g/dL (1.7-4.1); Glucose 92 mg/dL (80-110); HDL Cholesterol 87 mg/dL (40-60); HEMOLYSIS < 15 (0-50); LDL Cholesterol Calculated 121 mg/dL (<100); Potassium 4.8 mmol/L (3.4-5.1); Sodium 137 mmol/L (137-145); Total Protein 6.9 g/dL (6.3-8.2); Triglycerides 89 mg/dL (35-150)
== END ==
PROVIDERS: PCP Family Medicine; Referring Provider Family Medicine; Visit Provider Family Medicine
DX: Z98.84 Bariatric surgery status (principal); Z79.01 Long term (current) use of anticoagulants; D64.9 Anemia, unspecified; E78.5 Hyperlipidemia, unspecified; D68.51 Activated protein C resistance
CPT/HCPCS: 36415; 80053; 80061; 85025; 85610; 85730

== ENCOUNTER → 2023-07-24 09:33 | Outpatient (CLI) | payer OTHER, SELFPAY ==
--- NOTE | 2023-07-24 09:35 | DI.RAD.S_ITS ---
PROCEDURE: XR KNEE RT 3V INDICATIONS: Right knee pain TECHNIQUE: 3 views of the knee were acquired. COMPARISON: [facility] [place], CR, BILATERAL KNEE 3VW, 01/12/2017, 16:42. [facility] [place], MR, MR KNEE RT WO CON, 01/15/2017, 8:44. FINDINGS: Bones: No fractures or dislocations. No suspicious bony lesions. There is moderate medial femorotibial joint space narrowing seen, with associated remodeling changes including subchondral sclerosis and osteophyte formation along the jointline. On the sunrise view, there is moderate patellofemoral joint space narrowing seen. Osteophyte formation can be seen along the margins of the patella. There are enthesophytes seen along the superior and inferior aspects of the patella on the lateral view. Soft tissues: No significant joint effusion. Calcification can be seen along the joint line medially, which is attributed to meniscal calcification. IMPRESSION: Degenerative changes, without an acute abnormality seen by plain film. If it would be helpful for clinical management decision making, please consider a dedicated, scheduled knee MRI for further evaluation (assuming that there is no contraindication). Dictated by: Akhil Hernandez M.D. on 07/24/2023 at 8:57 Approved by: Akhil Hernandez M.D. on 07/24/2023 at 8:59
== END ==
PROVIDERS: PCP Family Medicine; Referring Provider Registered Nurse; Visit Provider Registered Nurse
DX: M25.561 Pain in right knee (principal)
CPT/HCPCS: 73562

== ENCOUNTER → 2024-02-04 09:57 | Outpatient (CLI) | payer OTHER, SELFPAY ==
--- NOTE | 2024-02-04 09:59 | DI.RAD.S_ITS ---
PROCEDURE: XR KNEE LT 3V INDICATIONS: pain TECHNIQUE: 3 views of the knee were acquired. COMPARISON: [facility], CR, XR KNEE RT 3V, 07/24/2023, 9:38. FINDINGS: Bones: No fractures or dislocations. No suspicious bony lesions. Soft tissues: No joint effusion. No suspicious soft tissue calcifications. IMPRESSION: No acute bony abnormality or significant effusion. Approved by: Ferdinand Bliss M.D. on 02/04/2024 at 18:25
== END ==
PROVIDERS: PCP Family Medicine; Referring Provider Family Medicine; Visit Provider Family Medicine
DX: M25.562 Pain in left knee (principal)
CPT/HCPCS: 73562

== ENCOUNTER → 2024-03-10 07:45 | Outpatient (CLI) | payer OTHER, SELFPAY ==
--- NOTE | 2024-03-10 07:46 | DI.MG.S_ITS ---
BILATERAL DIGITAL SCREENING MAMMOGRAM 3D/2D WITH CAD WITH AUGMENTATION: 03/10/2024 CLINICAL: Routine screening. Comparison is made to exams dated: 02/04/2023 mammogram, 06/04/2021 mammogram, and 03/26/2020 mammogram - [facility]. There are scattered areas of fibroglandular density in both breasts (category b / 25%-50% glandular tissue). Current study was also evaluated with a Computer Aided Detection (CAD) system. Bilateral breast implants are stable and intact. No significant masses, calcifications, or other findings are seen in either breast. There has been no significant interval change. IMPRESSION: BENIGN There is no mammographic evidence of malignancy. A 1 year screening mammogram is recommended. Based on the Tyrer Cuzick model (a risk assessment model) the patient's lifetime risk is 9.0% and her 10 year risk is 4.0%. According to the ACR, ACS, and NCCN guidelines, an annual breast MRI exam along with mammogram is recommended if the patient's lifetime risk is 20% or greater. This exam was interpreted at Station ID: [id number]. NOTE: For mammograms, a report in lay terms will be sent to the patient. Approximately 15% of breast malignancies will not be visualized mammographically. In the management of a palpable breast mass, a negative mammogram must not discourage biopsy of a clinically suspicious lesion. Electronically Signed By: Chel Ruby M.D., Ph.D. mani/omiara:03/13/2024 22:19:32 letter sent: Normal Exam ACR BI-RADS Category 2: Benign Finding(s) 3342F
--- NOTE | 2024-03-10 07:46 | DI.RAD.S_ITS ---
PROCEDURE: XR DEXA AXIAL SKELETON INDICATIONS: ROUTINE SCREENING COMPARISON: None. FINDINGS: Lumbar Spine: Bone mineral density 1.239 g/cm2, T score 2.0. Left Hip: Bone mineral density 0.944 g/cm2, T score 0.0 Left Femoral Neck: Bone mineral density 0.731 g/cm2, T score -1.1. Right Hip: Bone mineral density 1.013 g/cm2, T score 0.6. Right Femoral Neck: Bone mineral density 0.800 g/cm2, T score -0.4. Fracture Risk Calculation (when applicable): 10-year fracture risk of a major osteoporotic fracture 11% and of a hip fracture 0.5%. (T score greater or equal to -1.0 to: NORMAL) (T score from -1.1 to -2.4: OSTEOPENIA) (T score less than or equal to -2.5: OSTEOPOROSIS) IMPRESSION: Osteopenia with increased 10 year fracture risk as above. Follow-up guidelines as follows: Osteoporosis: Consider a repeat DEXA and Vertebral Fracture Assessment (VFA) exam in 2 years or sooner if medically necessary, to reassess this patient's status. Osteopenia: Consider a repeat DEXA in 2-3 years to reassess this patient's status, or if there is a new clinical indication. Normal: Consider a repeat DEXA in 5 years or sooner, or if there is a new clinical indication. All treatment decisions require clinical judgment and consideration of individual patient factors, including patient preferences, comorbidities, previous drug use, risk factors not captured in the FRAX model (e.g., frailty, falls, vitamin D deficiency, increased bone turnover, interval significant decline in bone density ) and possible under- or over-estimation of fracture risk by FRAX. In addition, the NOF Guide recommends that FDA-approved medical therapies be considered in postmenopausal women and men age >= 50 years with a: * Hip or vertebral (clinical or morphometric) fracture * T-score of <=-2.5 at the spine or hip * Ten-year fracture probability by FRAX of >= 3% for hip fracture or >=20% for major osteoporotic fracture. People with diagnosed cases of osteoporosis or at high risk for fracture should have regular bone mineral density tests. For patients eligible for Medicare, routine testing is allowed once every 2 years. The testing frequency can be increased to one year for patients who have rapidly progressing disease, those who are receiving or discontinuing medical therapy to restore bone mass, or have additional risk factors. Dictated by: Payam Fuentes M.D. on 03/11/2024 at 23:07 Approved by: Payam Fuentes M.D. on 03/11/2024 at 23:09
== END ==
LOC: MAMMO 07:45
PROVIDERS: PCP Family Medicine; Referring Provider Family Medicine; Visit Provider Family Medicine
DX: Z12.31 Encounter for screening mammogram for malignant neoplasm of breast (principal); R92.323 Mammographic fibroglandular density, bilateral breasts; Z13.820 Encounter for screening for osteoporosis; M85.852 Other specified disorders of bone density and structure, left thigh; N95.8 Other specified menopausal and perimenopausal disorders
CPT/HCPCS: 77063; 77067; 77080

== ENCOUNTER → 2024-05-05 14:49 | Outpatient (CLI) | payer OTHER, SELFPAY ==
--- NOTE | 2024-05-05 14:50 | DI.US.S_ITS ---
PROCEDURE: US PERIPH VENOUS LOW EXTREM LT INDICATIONS: rule out DVT TECHNIQUE: Real-time imaging, as well as color and pulse Doppler interrogation, were performed of the lower extremity deep veins from the inguinal ligament to the popliteal fossa, with documentation of the visualized calf veins. COMPARISON: [facility], , [facility] VENOUS LOW EXTREM LT, 08/07/2019, 12:00. FINDINGS: The common femoral, femoral, popliteal, and the visualized calf veins are normally compressible, and free of intraluminal thrombus. Color and pulse Doppler demonstrate normal phasic intraluminal flow. There is normal augmentation response to distal compression maneuver. IMPRESSION: Negative left lower extremity duplex venous ultrasound for DVT. Dictated by: Dru Mackenzie M.D. on 05/05/2024 at 16:25 Approved by: Dru Mackenzie M.D. on 05/05/2024 at 16:26
== END ==
PROVIDERS: Family Provider Family Medicine; PCP Family Medicine; Referring Provider Family Medicine; Visit Provider Family Medicine
DX: D68.51 Activated protein C resistance (principal); I82.409 Acute embolism and thrombosis of unspecified deep veins of unspecified lower extremity
CPT/HCPCS: 93971

== ENCOUNTER 2024-06-20 09:45 | Outpatient (RCR) | payer OTHER, SELFPAY ==
--- NOTE | 2024-05-02 14:25 | PT.OIE ---
Current Diagnoses Pain in left knee (05/02/24) Past Medical History (Last Reviewed 07/24/23 @ 09:35 by ESTHER Burch) Chicken pox (1964) DVT (deep venous thrombosis) (2003) Factor V Leiden (1960) Hayfever Past Surgical History (Last Reviewed 07/24/23 @ 09:35 by ESTHER Burch) Anesthesia History of abdominoplasty (2004) History of breast augmentation (2004) History of gastric bypass (2004) History of lumbosacral spine surgery (1993) History of lumbosacral spine surgery (1994) Status post delivery (1994) Visit Care Team Role Provider Type Vale Tafoya MD Attending Provider Physician Family Provider Primary Care Provider Referring Provider Specialty: Family Practice Address: [address] [place] [address], [facility] Email: [email or web address] Physical Therapy Initial Evaluation PT-OP-A Visit Information Start: 04/27/24 09:55 Freq: Status: Active Protocol: Document 05/02/24 09:46 [facility] (Rec: 05/02/24 12:30 [facility] [id number]) Out-Patient Physical Therapy Visit Information Visit Information Visit Type Initial Evaluation Visit Start Time 09:48 Visit Stop Time 10:34 Visit Number 1 Number of POWER HAMMER OPERATOR Visits 0 PT-OP-B Current Condition Start: 04/27/24 09:55 Freq: Status: Active Protocol: Document 05/02/24 09:46 [facility] (Rec: 05/02/24 12:30 [facility] [id number]) Current Condition History of Current Condition Onset Date about 1 year when tried to inc walking Current Complaints L knee History of Current Condition Pt reports has a bakers cyst. USed to walk 4 miles a day and stopped 2.5 years ago. Stopped d/t partner that walked . Pt saw rheumotolgist that thinks that is something underlying. Has hx of meniscus surgery 5-7 years ago but unsure which leg . Now if she walks too much knee swells up even out to mailbox. 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 . Hx of dirt bike riding, loading hay, horseback riding. has psoriatic arthritis and takes meds for that. hx of 3 back surgeries and no pain now. hx of L DVT in 2003, and 2008 and are fine now (found in HS region). is on xarelto since this. 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 no longer on control since 2003. back surgeries; L4 -5 herniation causing discetomy x2; L3-4 herniation causing discectomy. Pt reports if lays on back, feels like is going to throw up and neck pain for 2-3 years. hx of tension HAYES and neck pain Prior Treatments and Tests no acute bushra abdnormality noted in knee Treatment Goals Patient/Caregiver Goals find out what is wrong w/knee; be able to walk distance PT-OP-C Subjective Start: 04/27/24 09:55 Freq: Status: Active Protocol: Document 05/02/24 09:46 [facility] (Rec: 05/02/24 12:30 [facility] [id number]) Patient Questionnaires Lower Extremity Functional Scale LEFS Score 41/80 OP-PT Pain Assessment Location L knee Pain Location Details Med knee and post knee Description Burning,With Movement Frequency Constant Radiating Location water dripping down L leg Pain Aggravating Factors Activity,Exercise,Sitting, Walking,Stair Climbing,Bending Pain Alleviating Factors Cold,Elevation Other Pain Alleviating Factors rotation of leg can improve pain, end of day PT-OP-D Balance Start: 04/27/24 09:55 Freq: Status: Active Protocol: Document 05/02/24 09:46 [facility] (Rec: 05/02/24 12:30 [facility] [id number]) Balance Tests Single Limb Standing Single Limb- Right 17 sec Single Limb- Left 19 sec w/more ankle deviation PT-OP-F Manual Assessment Start: 04/27/24 09:55 Freq: Status: Active Protocol: Document 05/02/24 09:46 [facility] (Rec: 05/02/24 12:30 [facility] [id number]) Manual Assessments Other Manual Assessments Other Manual Assessments varicose veins notable B ant shins and knee PT-OP-G Mobility & Gait Start: 04/27/24 09:55 Freq: Status: Active Protocol: Document 05/02/24 09:46 [facility] (Rec: 05/02/24 12:30 [facility] [id number]) OP Gait Assessment Comments Gait Comments inc force into LLE w/landing; dec pelvis motion; dec push off PT-OP-J Posture/Palpation/Skin Start: 04/27/24 09:55 Freq: Status: Active Protocol: Document 05/02/24 09:46 [facility] (Rec: 05/02/24 12:30 [facility] [id number]) Posture Evaluation [facility] Postural Classification System Lumbar Protective Mechanism Left AP 2 Lumbar Protective Mechanism Right AP 0 Lumbar Protective Mechanism Left PA 2 Lumbar Protective Mechanism Right PA 2 Comments Posture Comments LLE turned out and ER of tibia , patella lat, IR of femur L; L>R pronation ; L pelvis higher than R PT-OP-K Range of Motion Start: 04/27/24 09:55 Freq: Status: Active Protocol: Document 05/02/24 09:46 [facility] (Rec: 05/02/24 12:30 [facility] [id number]) Knee Goniometric Range of Motion Knee Right Flexion Active (degrees) 125 Extension Active (degrees) 0 Left Flexion Active (degrees) 126 Extension Active (degrees) 4 Comments tight both directions PT-OP-L Special Tests Start: 04/27/24 09:55 Freq: Status: Active Protocol: Document 05/02/24 09:46 [facility] (Rec: 05/02/24 14:23 [facility] [id number]) Special Tests Knee Special Tests Elizabeth's Test Comments positive L Marciano Comments positive quad and RF L Straight Leg Raise Comments HS tightness mild -slightly restricted L>R Apley's Compression Comments neg Gary Test Comments neg Posterior Draw Comments neg varus/valgus Comments neg Clementina's Comments neg Ybarra Chondromalacia Comments neg PT-OP-M Strength Start: 04/27/24 09:55 Freq: Status: Active Protocol: Document 05/02/24 09:46 [facility] (Rec: 05/02/24 12:30 [facility] [id number]) Hip Strength Hip Manual Muscle Testing Right Flexion (L2) 4- Good- Extension (S1) 3+ Fair+ Abduction 4 Good Adduction 5 Normal External Rotation 4 Good Internal Rotation 5 Normal Left Flexion (L2) 3+ Fair+ Extension (S1) 3+ Fair+ Abduction 4- Good- Adduction 4+ Good+ External Rotation 4- Good- Internal Rotation 4- Good- Comments discomfort in hip w/IR Knee Strength Knee Manual Muscle Testing Right Flexion (S2) 5 Normal Extension (L3) 5 Normal Left Flexion (S2) 4 Good Extension (L3) 4 Good Comments pain in knee w/ext Ankle/Foot Strength Ankle and Foot Manual Muscle Testing Right Dorsiflexion (L4) 5 Normal Plantarflexion (S1) 5 Normal Comments 20 heel raises Left Dorsiflexion (L4) 5 Normal Plantarflexion (S1) 3+ Fair+ Comments 4 stopped d/t pain (heel raises) PT-OP-Q Treatments Start: 04/27/24 09:55 Freq: Status: Active Protocol: Document 05/02/24 09:46 [facility] (Rec: 05/02/24 12:30 [facility] [id number]) Self-Care/Home Management Treatment Education Other Education 9 min:edu importance to discuss w/provider any changes to swelling/veins in leg w/ her hx of DVT. Discussed w/pt findings of tightness in quad, ITB, HS and no issues w/ ligamentous testing or meniscal testing except tenderness at med jt line. PT-OP-T Assessment and Plan Start: 04/27/24 09:55 Freq: Status: Active Protocol: Document 05/02/24 09:46 [facility] (Rec: 05/02/24 12:30 [facility] [id number]) Physical Therapy Assessment Rehab Potential Rehabilitation Potential Good Evaluation Complexity Number of Personal Factors/Comorbidities 3 or More Number of Body Systems Impaired 4 or More Clinical Presentation at Evaluation Evolving Impairments Impairments Activity Tolerance,Balance, Functional Activities, Functional Mobility,Gait,Pain, Posture,ROM,Soft Tissue Mobility,Strength Goals LEFS Impairment 41/80 Short Term Goal (STG) Pt will improve LEFS score to at least 49 to show improved functional ability. STG Duration 06/09 Senior Electronics Engineer Goal (LTG) Pt will improve LEFS score to at least 58 to show improved functional ability. LTG Duration 07/09 activities Short Term Goal (STG) Pt will be able to go up/down stairs w/o pain in knee greater than 1/10 STG Duration 06/09 Senior Care Goal (LTG) Pt will be able to start small exercises w/strength and short walks w/o inc knee swelling or pain greater than 1/10 LTG Duration 07/11 strength Short Term Goal (STG) Pt will be indep w/HEP STG Duration 06/06 Senior Care Goal (LTG) Pt will score at least 3/5 in all planes LPM and at least 4+ /5 in all planes BLE MMT LTG Duration 07/09 Assessment Summary Assessment Pt presents w/L post and med knee pain w/signifiacnt hx of multiple abdominal surgeries, back surgeries, menisectomy ( unknown side), DVTs in LLE and current LLE swelling. She has med jt line tendernss but neg w/most meniscal testing today . She does show significant IR of femur and ER of tibia on L side likely contributing to her pain and alignment. She also has weakness of LLE and more tightness on L side. She would benefit from skilled PT to address these deficits and improve ability to do typical daily activities w/o pain. Physical Therapy Plan Frequency and Duration Frequency of Treatment 2x/Week Duration of treatment (weeks) 10 Plan of Care Start Date 05/02/24 Plan of Care End Date 07/11/24 Therapeutic Interventions Therapeutic Interventions Balance Training,Gait Training ,Home Exercise Program,Joint Mobilizations,Manual Therapy, Neuromuscular Re-education, Patient/Caregiver Education, Self-Care/Home Management,Soft Tissue Mobilization,Taping, Therapeutic Activities, Therapeutic Exercises Modalities Cold Pack/Ice Massage,Electric Stimulation,Hot Packs, Infrared Therapy,Iontophoresis ,Ultrasound Next Visit Focus/Plan Next Note Type Treatment Note Next Visit Plan HEP: try supine/s/l to start: bridges, SLR, hip abd, clamshells manual: gentle jt mobs to knee , hip and ankle (careful around vascular areas w/pt DVT hx-message sent to primary re : concerns)
--- NOTE | 2024-05-02 14:26 | PT.OPPOC ---
Physical, Occupational & Speech Therapy At [facility] Current Diagnoses Pain in left knee (05/02/24) Visit Care Team Role Provider Type Vale Tafoya MD Attending Provider Physician Family Provider Primary Care Provider Referring Provider Specialty: Family Practice Address: [address] [place] [address], [facility] [place], [address] Email: [email or web address] Plan Of Care PT-OP-B Current Condition Start: 04/27/24 09:55 Freq: Status: Active Protocol: Document 05/02/24 09:46 [facility] (Rec: 05/02/24 12:30 [facility] [id number]) Current Condition History of Current Condition Onset Date about 1 year when tried to inc walking Current Complaints L knee History of Current Condition Pt reports has a bakers cyst. USed to walk 4 miles a day and stopped 2.5 years ago. Stopped d/t partner that walked . Pt saw rheumotolgist that thinks that is something underlying. Has hx of meniscus surgery 5-7 years ago but unsure which leg . Now if she walks too much knee swells up even out to mailbox. 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 . Hx of dirt bike riding, loading hay, horseback riding. has psoriatic arthritis and takes meds for that. hx of 3 back surgeries and no pain now. hx of L DVT in 2003, and 2008 and are fine now (found in HS region). is on xarelto since this. 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 no longer on control since 2003. back surgeries; L4 -5 herniation causing discetomy x2; L3-4 herniation causing discectomy. Pt reports if lays on back, feels like is going to throw up and neck pain for 2-3 years. hx of tension HAYES and neck pain Prior Treatments and Tests no acute bushra abdnormality noted in knee Treatment Goals Patient/Caregiver Goals find out what is wrong w/knee; be able to walk distance PT-OP-T Assessment and Plan Start: 04/27/24 09:55 Freq: Status: Active Protocol: Document 05/02/24 09:46 [facility] (Rec: 05/02/24 12:30 [facility] [id number]) Physical Therapy Assessment Rehab Potential Rehabilitation Potential Good Evaluation Complexity Number of Personal Factors/Comorbidities 3 or More Number of Body Systems Impaired 4 or More Clinical Presentation at Evaluation Evolving Impairments Impairments Activity Tolerance,Balance, Functional Activities, Functional Mobility,Gait,Pain, Posture,ROM,Soft Tissue Mobility,Strength Goals LEFS Impairment 41/80 Short Term Goal (STG) Pt will improve LEFS score to at least 49 to show improved functional ability. STG Duration 06/09 Bin Piler Goal (LTG) Pt will improve LEFS score to at least 58 to show improved functional ability. LTG Duration 07/09 activities Short Term Goal (STG) Pt will be able to go up/down stairs w/o pain in knee greater than 1/10 STG Duration 06/09 Assisted Goal (LTG) Pt will be able to start small exercises w/strength and short walks w/o inc knee swelling or pain greater than 1/10 LTG Duration 07/11 strength Short Term Goal (STG) Pt will be indep w/HEP STG Duration 06/06 Bin Piler Goal (LTG) Pt will score at least 3/5 in all planes LPM and at least 4+ /5 in all planes BLE MMT LTG Duration 07/09 Assessment Summary Assessment Pt presents w/L post and med knee pain w/signifiacnt hx of multiple abdominal surgeries, back surgeries, menisectomy ( unknown side), DVTs in LLE and current LLE swelling. She has med jt line tendernss but neg w/most meniscal testing today . She does show significant IR of femur and ER of tibia on L side likely contributing to her pain and alignment. She also has weakness of LLE and more tightness on L side. She would benefit from skilled PT to address these deficits and improve ability to do typical daily activities w/o pain. Physical Therapy Plan Frequency and Duration Frequency of Treatment 2x/Week Duration of treatment (weeks) 10 Plan of Care Start Date 05/02/24 Plan of Care End Date 07/11/24 Therapeutic Interventions Therapeutic Interventions Balance Training,Gait Training ,Home Exercise Program,Joint Mobilizations,Manual Therapy, Neuromuscular Re-education, Patient/Caregiver Education, Self-Care/Home Management,Soft Tissue Mobilization,Taping, Therapeutic Activities, Therapeutic Exercises Modalities Cold Pack/Ice Massage,Electric Stimulation,Hot Packs, Infrared Therapy,Iontophoresis ,Ultrasound Next Visit Focus/Plan Next Note Type Treatment Note Next Visit Plan HEP: try supine/s/l to start: bridges, SLR, hip abd, clamshells manual: gentle jt mobs to knee , hip and ankle (careful around vascular areas w/pt DVT hx-message sent to primary re : concerns) Plan of Care Dates Plan of Care Start Date 05/02/24 Plan of Care End Date 07/11/24 Electronically Signed by: Vale Mahmood, PT 05/02/24 1926 If you are in agreement with this Plan of Care, please return a signed and dated copy. I have reviewed this Plan of Care and certify that the skilled therapy services above are required to meet the patient?s needs. Physician Signature Date Printed Name and Credentials Clinical Instructor Signature Printed Name and Credentials
--- NOTE | 2024-05-08 10:36 | PT.OTN ---
Current Diagnoses Pain in left knee (05/08/24) Physical Therapy Treatment Note PT-OP-A Visit Information Start: 04/27/24 09:55 Freq: Status: Active Protocol: Document 05/08/24 09:47 [facility] (Rec: 05/08/24 10:35 [facility] [id number]) Out-Patient Physical Therapy Visit Information Visit Information Visit Type Treatment Note Visit Start Time 09:50 Visit Stop Time 10:30 Visit Number 2 Number of BUSINESS ANALYTICS DIRECTOR Visits 0 PT-OP-B Current Condition Start: 04/27/24 09:55 Freq: Status: Active Protocol: Document 05/02/24 09:46 [facility] (Rec: 05/02/24 12:30 [facility] [id number]) Current Condition History of Current Condition Onset Date about 1 year when tried to inc walking Current Complaints L knee History of Current Condition Pt reports has a bakers cyst. USed to walk 4 miles a day and stopped 2.5 years ago. Stopped d/t partner that walked . Pt saw rheumotolgist that thinks that is something underlying. Has hx of meniscus surgery 5-7 years ago but unsure which leg . Now if she walks too much knee swells up even out to mailbox. 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 . Hx of dirt bike riding, loading hay, horseback riding. has psoriatic arthritis and takes meds for that. hx of 3 back surgeries and no pain now. hx of L DVT in 2003, and 2008 and are fine now (found in HS region). is on xarelto since this. 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 no longer on control since 2003. back surgeries; L4 -5 herniation causing discetomy x2; L3-4 herniation causing discectomy. Pt reports if lays on back, feels like is going to throw up and neck pain for 2-3 years. hx of tension HAYES and neck pain Prior Treatments and Tests no acute bushra abdnormality noted in knee Treatment Goals Patient/Caregiver Goals find out what is wrong w/knee; be able to walk distance PT-OP-C Subjective Start: 04/27/24 09:55 Freq: Status: Active Protocol: Document 05/08/24 09:47 [facility] (Rec: 05/08/24 10:35 [facility] [id number]) OP-PT Subjective Patient Comments Patient Comments Pt got US and was negative for clot PT-OP-D Balance Start: 04/27/24 09:55 Freq: Status: Active Protocol: Document 05/02/24 09:46 [facility] (Rec: 05/02/24 12:30 [facility] [id number]) Balance Tests Single Limb Standing Single Limb- Right 17 sec Single Limb- Left 19 sec w/more ankle deviation PT-OP-F Manual Assessment Start: 04/27/24 09:55 Freq: Status: Active Protocol: Document 05/02/24 09:46 [facility] (Rec: 05/02/24 12:30 [facility] [id number]) Manual Assessments Other Manual Assessments Other Manual Assessments varicose veins notable B ant shins and knee PT-OP-G Mobility & Gait Start: 04/27/24 09:55 Freq: Status: Active Protocol: Document 05/02/24 09:46 [facility] (Rec: 05/02/24 12:30 [facility] [id number]) OP Gait Assessment Comments Gait Comments inc force into LLE w/landing; dec pelvis motion; dec push off PT-OP-J Posture/Palpation/Skin Start: 04/27/24 09:55 Freq: Status: Active Protocol: Document 05/02/24 09:46 [facility] (Rec: 05/02/24 12:30 [facility] [id number]) Posture Evaluation [facility] Postural Classification System Lumbar Protective Mechanism Left AP 2 Lumbar Protective Mechanism Right AP 0 Lumbar Protective Mechanism Left PA 2 Lumbar Protective Mechanism Right PA 2 Comments Posture Comments LLE turned out and ER of tibia , patella lat, IR of femur L; L>R pronation ; L pelvis higher than R PT-OP-K Range of Motion Start: 04/27/24 09:55 Freq: Status: Active Protocol: Document 05/02/24 09:46 [facility] (Rec: 05/02/24 12:30 [facility] [id number]) Knee Goniometric Range of Motion Knee Right Flexion Active (degrees) 125 Extension Active (degrees) 0 Left Flexion Active (degrees) 126 Extension Active (degrees) 4 Comments tight both directions PT-OP-L Special Tests Start: 04/27/24 09:55 Freq: Status: Active Protocol: Document 05/02/24 09:46 [facility] (Rec: 05/02/24 14:23 [facility] [id number]) Special Tests Knee Special Tests Elizabeth's Test Comments positive L Marciano Comments positive quad and RF L Straight Leg Raise Comments HS tightness mild -slightly restricted L>R Apley's Compression Comments neg Gary Test Comments neg Posterior Draw Comments neg varus/valgus Comments neg Clementina's Comments neg Ybarra Chondromalacia Comments neg PT-OP-M Strength Start: 04/27/24 09:55 Freq: Status: Active Protocol: Document 05/02/24 09:46 [facility] (Rec: 05/02/24 12:30 [facility] [id number]) Hip Strength Hip Manual Muscle Testing Right Flexion (L2) 4- Good- Extension (S1) 3+ Fair+ Abduction 4 Good Adduction 5 Normal External Rotation 4 Good Internal Rotation 5 Normal Left Flexion (L2) 3+ Fair+ Extension (S1) 3+ Fair+ Abduction 4- Good- Adduction 4+ Good+ External Rotation 4- Good- Internal Rotation 4- Good- Comments discomfort in hip w/IR Knee Strength Knee Manual Muscle Testing Right Flexion (S2) 5 Normal Extension (L3) 5 Normal Left Flexion (S2) 4 Good Extension (L3) 4 Good Comments pain in knee w/ext Ankle/Foot Strength Ankle and Foot Manual Muscle Testing Right Dorsiflexion (L4) 5 Normal Plantarflexion (S1) 5 Normal Comments 20 heel raises Left Dorsiflexion (L4) 5 Normal Plantarflexion (S1) 3+ Fair+ Comments 4 stopped d/t pain (heel raises) PT-OP-Q Treatments Start: 04/27/24 09:55 Freq: Status: Active Protocol: Document 05/08/24 09:47 [facility] (Rec: 05/08/24 10:35 [facility] [id number]) Therapeutic Exercises Supine Exercises stretch Supine Exercise Name marciano test (opp knee to chest ) Side bilateral Reps/Minutes 1 min SLR Supine Exercise Name w/core engagement Side bilateral Reps/Minutes 12 bridge Supine Exercise Name bridge Side bilateral Resistance L3 band at knees Reps/Minutes 10 sec x8 Comments attempted marches (4x but kept cramping) Sidelying Exercises clamshell Side bilateral Reps/Minutes 12 Comments cues no rot hip abd Side bilateral Reps/Minutes 12 Comments cues leg alignment Manual Therapy Treatment Consent Patient gave verbal consent for manual Yes treatment Soft Tissue Mobilization calf Body Location L Mobilization Type Rolling Intensity/Depth Moderate Body Position Supine HS Body Location L Mobilization Type Rolling Intensity/Depth Moderate Body Position Hooklying Comments AAROM SLR Joint Mobilizations tibiofemoral Joint L Body Position Supine Comments AP tibia C/r patellofemoral Joint sup, inf, med L Body Position Supine PT-OP-T Assessment and Plan Start: 04/27/24 09:55 Freq: Status: Active Protocol: Document 05/08/24 09:47 [facility] (Rec: 05/08/24 10:35 [facility] [id number]) Physical Therapy Assessment Goals LEFS Impairment 41/80 Short Term Goal (STG) Pt will improve LEFS score to at least 49 to show improved functional ability. STG Duration 06/09 Prison Goal (LTG) Pt will improve LEFS score to at least 58 to show improved functional ability. LTG Duration 07/09 activities Short Term Goal (STG) Pt will be able to go up/down stairs w/o pain in knee greater than 1/10 STG Duration 06/09 Prison Goal (LTG) Pt will be able to start small exercises w/strength and short walks w/o inc knee swelling or pain greater than 1/10 LTG Duration 07/11 strength Short Term Goal (STG) Pt will be indep w/HEP STG Duration 06/06 Circulation Librarian Goal (LTG) Pt will score at least 3/5 in all planes LPM and at least 4+ /5 in all planes BLE MMT LTG Duration 07/09 Assessment Summary Assessment Pt did well with exercsies except for cramping w/L HS w/ bridges when attempted october. Cues needed for knee alignment to avoid knee pain w/band. No pain w/other exercises, just feel difficult. Significant HS /calf tightness L. Physical Therapy Plan Next Visit Focus/Plan Next Note Type Treatment Note Next Visit Plan review HEP: try supine/s/l to start: bridges, SLR, hip abd, clamshells manual: gentle jt mobs to knee , hip and ankle
--- NOTE | 2024-05-10 10:36 | PT.OTN ---
Current Diagnoses Pain in left knee (05/10/24) Physical Therapy Treatment Note PT-OP-A Visit Information Start: 04/27/24 09:55 Freq: Status: Active Protocol: Document 05/10/24 08:52 [facility] (Rec: 05/10/24 10:36 [facility] [id number]) Out-Patient Physical Therapy Visit Information Visit Information Visit Type Treatment Note Visit Start Time 09:46 Visit Stop Time 10:30 Visit Number 3 Number of URGENT CARE Visits 1 PT-OP-B Current Condition Start: 04/27/24 09:55 Freq: Status: Active Protocol: Document 05/02/24 09:46 [facility] (Rec: 05/02/24 12:30 [facility] [id number]) Current Condition History of Current Condition Onset Date about 1 year when tried to inc walking Current Complaints L knee History of Current Condition Pt reports has a bakers cyst. USed to walk 4 miles a day and stopped 2.5 years ago. Stopped d/t partner that walked . Pt saw rheumotolgist that thinks that is something underlying. Has hx of meniscus surgery 5-7 years ago but unsure which leg . Now if she walks too much knee swells up even out to mailbox. 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 . Hx of dirt bike riding, loading hay, horseback riding. has psoriatic arthritis and takes meds for that. hx of 3 back surgeries and no pain now. hx of L DVT in 2003, and 2008 and are fine now (found in HS region). is on xarelto since this. 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 no longer on control since 2003. back surgeries; L4 -5 herniation causing discetomy x2; L3-4 herniation causing discectomy. Pt reports if lays on back, feels like is going to throw up and neck pain for 2-3 years. hx of tension HAYES and neck pain Prior Treatments and Tests no acute bushra abdnormality noted in knee Treatment Goals Patient/Caregiver Goals find out what is wrong w/knee; be able to walk distance PT-OP-C Subjective Start: 04/27/24 09:55 Freq: Status: Active Protocol: Document 05/10/24 08:52 [facility] (Rec: 05/10/24 10:36 [facility] [id number]) OP-PT Subjective Patient Comments Patient Comments Patient rates pain 2/10, reports the knee is the same. Patient reports performing HEP . AROM left knee lacking 4 deg ext to 128 deg flexion, visible swelling compared to right knee. PT-OP-D Balance Start: 04/27/24 09:55 Freq: Status: Active Protocol: Document 05/02/24 09:46 [facility] (Rec: 05/02/24 12:30 [facility] [id number]) Balance Tests Single Limb Standing Single Limb- Right 17 sec Single Limb- Left 19 sec w/more ankle deviation PT-OP-F Manual Assessment Start: 04/27/24 09:55 Freq: Status: Active Protocol: Document 05/02/24 09:46 [facility] (Rec: 05/02/24 12:30 [facility] [id number]) Manual Assessments Other Manual Assessments Other Manual Assessments varicose veins notable B ant shins and knee PT-OP-G Mobility & Gait Start: 04/27/24 09:55 Freq: Status: Active Protocol: Document 05/02/24 09:46 [facility] (Rec: 05/02/24 12:30 [facility] [id number]) OP Gait Assessment Comments Gait Comments inc force into LLE w/landing; dec pelvis motion; dec push off PT-OP-J Posture/Palpation/Skin Start: 04/27/24 09:55 Freq: Status: Active Protocol: Document 05/02/24 09:46 [facility] (Rec: 05/02/24 12:30 [facility] [id number]) Posture Evaluation Eric Postural Classification System Lumbar Protective Mechanism Left AP 2 Lumbar Protective Mechanism Right AP 0 Lumbar Protective Mechanism Left PA 2 Lumbar Protective Mechanism Right PA 2 Comments Posture Comments LLE turned out and ER of tibia , patella lat, IR of femur L; L>R pronation ; L pelvis higher than R PT-OP-K Range of Motion Start: 04/27/24 09:55 Freq: Status: Active Protocol: Document 05/02/24 09:46 [facility] (Rec: 05/02/24 12:30 [facility] [id number]) Knee Goniometric Range of Motion Knee Right Flexion Active (degrees) 125 Extension Active (degrees) 0 Left Flexion Active (degrees) 126 Extension Active (degrees) 4 Comments tight both directions PT-OP-L Special Tests Start: 04/27/24 09:55 Freq: Status: Active Protocol: Document 05/02/24 09:46 [facility] (Rec: 05/02/24 14:23 [facility] [id number]) Special Tests Knee Special Tests Elizabeth's Test Comments positive L Marciano Comments positive quad and RF L Straight Leg Raise Comments HS tightness mild -slightly restricted L>R Apley's Compression Comments neg Gary Test Comments neg Posterior Draw Comments neg varus/valgus Comments neg Clementina's Comments neg Ybarra Chondromalacia Comments neg PT-OP-M Strength Start: 04/27/24 09:55 Freq: Status: Active Protocol: Document 05/02/24 09:46 [facility] (Rec: 05/02/24 12:30 [facility] [id number]) Hip Strength Hip Manual Muscle Testing Right Flexion (L2) 4- Good- Extension (S1) 3+ Fair+ Abduction 4 Good Adduction 5 Normal External Rotation 4 Good Internal Rotation 5 Normal Left Flexion (L2) 3+ Fair+ Extension (S1) 3+ Fair+ Abduction 4- Good- Adduction 4+ Good+ External Rotation 4- Good- Internal Rotation 4- Good- Comments discomfort in hip w/IR Knee Strength Knee Manual Muscle Testing Right Flexion (S2) 5 Normal Extension (L3) 5 Normal Left Flexion (S2) 4 Good Extension (L3) 4 Good Comments pain in knee w/ext Ankle/Foot Strength Ankle and Foot Manual Muscle Testing Right Dorsiflexion (L4) 5 Normal Plantarflexion (S1) 5 Normal Comments 20 heel raises Left Dorsiflexion (L4) 5 Normal Plantarflexion (S1) 3+ Fair+ Comments 4 stopped d/t pain (heel raises) PT-OP-Q Treatments Start: 04/27/24 09:55 Freq: Status: Active Protocol: Document 05/10/24 08:52 [facility] (Rec: 05/10/24 10:36 [facility] [id number]) Therapeutic Exercises Supine Exercises HS stretch Supine Exercise Name from hooklying HEP Side left Reps/Minutes 60 sec Comments verbal cues stretch Supine Exercise Name marciano test (opp knee to chest ) Side bilateral Reps/Minutes 1 min X2 left X 1 right Comments with AROM knee flexion SLR Side bilateral Reps/Minutes 10 Comments Verbal cues to lock the knee straight when raising and lowering bridge Supine Exercise Name bridge Side bilateral Resistance L3 band at knees Reps/Minutes 10 sec x5 Comments attempted marches (1x but cramping) Sidelying Exercises clamshell Side bilateral Reps/Minutes 15 Comments cues no rot and for LE set up Sitting Exercises Seated hip abd with band Sitting Exercise Name HEP Side bilateral Resistance level 3 green band Reps/Minutes one minute X 1 Manual Therapy Treatment Soft Tissue Mobilization HS Body Location L and quad this session Mobilization Type Rolling,Other Body Position Hooklying Comments upward strokes for swelling Joint Mobilizations left ankle Joint TC Direction AP Grade II Body Position Hooklying Reps/Duration X10 X 2 tibiofemoral Joint L Grade III Body Position Hooklying Reps/Duration X3 X6 Comments AP and PA patellofemoral Joint sup, inf, med L Direction II Body Position Supine Reps/Duration X6 Comments II to III Taping left knee Body Location left knee Treatment Focus unload fat pad I strip distal to proximal 50%[place] start one lat one Type of Tape Kinesio Comments medial, then one strip lat to medial 50% stretch Patient ed to remove in 3-5 days or immediately if skin irritation occurs. PT-OP-T Assessment and Plan Start: 04/27/24 09:55 Freq: Status: Active Protocol: Document 05/10/24 08:52 [facility] (Rec: 05/10/24 10:36 [facility] [id number]) Physical Therapy Assessment Goals LEFS Impairment 41/80 Short Term Goal (STG) Pt will improve LEFS score to at least 49 to show improved functional ability. STG Duration 06/09 Multicultural Internship Goal (LTG) Pt will improve LEFS score to at least 58 to show improved functional ability. LTG Duration 07/09 activities Short Term Goal (STG) Pt will be able to go up/down stairs w/o pain in knee greater than 1/10 STG Duration 06/09 Multicultural Internship Goal (LTG) Pt will be able to start small exercises w/strength and short walks w/o inc knee swelling or pain greater than 1/10 LTG Duration 07/11 strength Short Term Goal (STG) Pt will be indep w/HEP STG Duration 06/06 Multicultural Internship Goal (LTG) Pt will score at least 3/5 in all planes LPM and at least 4+ /5 in all planes BLE MMT LTG Duration 12/1 Assessment Summary Assessment Patient reports having no pain end of session. Cecy continues to be unable to perform single leg bridge without HS cramping. Physical Therapy Plan Frequency and Duration Frequency of Treatment 2x/Week Duration of treatment (weeks) 10 Plan of Care Start Date 05/02/24 Plan of Care End Date 07/11/24 Next Visit Focus/Plan Next Note Type Treatment Note Next Visit Plan review HEP: try supine/s/l to start: bridges, SLR, hip abd, clamshells(possibly add band to clamshell) manual: gentle jt mobs to knee , hip and ankle trial of calf stretch.
--- NOTE | 2024-05-26 12:36 | PT.OTN ---
Current Diagnoses Pain in left knee (05/26/24) Physical Therapy Treatment Note PT-OP-A Visit Information Start: 04/27/24 09:55 Freq: Status: Active Protocol: Document 05/26/24 10:[address] [facility] (Rec: 05/29/24 16:[address] [facility] [id number]) Out-Patient Physical Therapy Visit Information Visit Information Visit Type Treatment Note Visit Start Time 10:45 Visit Stop Time 11:30 Visit Number 4 Number of ARCHERY EQUIPMENT HAY SORTER Visits 2 PT-OP-B Current Condition Start: 04/27/24 09:55 Freq: Status: Active Protocol: Document 05/02/24 09:46 [facility] (Rec: 05/02/24 12:30 [facility] [id number]) Current Condition History of Current Condition Onset Date about 1 year when tried to inc walking Current Complaints L knee History of Current Condition Pt reports has a bakers cyst. USed to walk 4 miles a day and stopped 2.5 years ago. Stopped d/t partner that walked . Pt saw rheumotolgist that thinks that is something underlying. Has hx of meniscus surgery 5-7 years ago but unsure which leg . Now if she walks too much knee swells up even out to mailbox. 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 . Hx of dirt bike riding, loading hay, horseback riding. has psoriatic arthritis and takes meds for that. hx of 3 back surgeries and no pain now. hx of L DVT in 2003, and 2008 and are fine now (found in HS region). is on xarelto since this. 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 no longer on control since 2003. back surgeries; L4 -5 herniation causing discetomy x2; L3-4 herniation causing discectomy. Pt reports if lays on back, feels like is going to throw up and neck pain for 2-3 years. hx of tension HAYES and neck pain Prior Treatments and Tests no acute bushra abdnormality noted in knee Treatment Goals Patient/Caregiver Goals find out what is wrong w/knee; be able to walk distance PT-OP-C Subjective Start: 04/27/24 09:55 Freq: Status: Active Protocol: Document 05/26/24 10:45 [facility] (Rec: 05/29/24 16:31 [facility] [id number]) OP-PT Subjective Patient Comments Patient Comments Cecy reports the cross strip of the KT tape came off as she was leaving PT last session but the tape still seemed to help. She wore it no more than 5 days. The hip flexor stretch on her back is uncomfortable because her bed is too soft and the bridges her her low back so she's not doing those exercises. PT-OP-D Balance Start: 04/27/24 09:55 Freq: Status: Active Protocol: Document 05/02/24 09:46 [facility] (Rec: 05/02/24 12:30 [facility] [id number]) Balance Tests Single Limb Standing Single Limb- Right 17 sec Single Limb- Left 19 sec w/more ankle deviation PT-OP-F Manual Assessment Start: 04/27/24 09:55 Freq: Status: Active Protocol: Document 05/02/24 09:46 [facility] (Rec: 05/02/24 12:30 [facility] [id number]) Manual Assessments Other Manual Assessments Other Manual Assessments varicose veins notable B ant shins and knee PT-OP-G Mobility & Gait Start: 04/27/24 09:55 Freq: Status: Active Protocol: Document 05/02/24 09:46 [facility] (Rec: 05/02/24 12:30 [facility] [id number]) OP Gait Assessment Comments Gait Comments inc force into LLE w/landing; dec pelvis motion; dec push off PT-OP-J Posture/Palpation/Skin Start: 04/27/24 09:55 Freq: Status: Active Protocol: Document 05/02/24 09:46 [facility] (Rec: 05/02/24 12:30 [facility] [id number]) Posture Evaluation Eric Postural Classification System Lumbar Protective Mechanism Left AP 2 Lumbar Protective Mechanism Right AP 0 Lumbar Protective Mechanism Left PA 2 Lumbar Protective Mechanism Right PA 2 Comments Posture Comments LLE turned out and ER of tibia , patella lat, IR of femur L; L>R pronation ; L pelvis higher than R PT-OP-K Range of Motion Start: 04/27/24 09:55 Freq: Status: Active Protocol: Document 05/02/24 09:46 [facility] (Rec: 05/02/24 12:30 [facility] [id number]) Knee Goniometric Range of Motion Knee Right Flexion Active (degrees) 125 Extension Active (degrees) 0 Left Flexion Active (degrees) 126 Extension Active (degrees) 4 Comments tight both directions PT-OP-L Special Tests Start: 04/27/24 09:55 Freq: Status: Active Protocol: Document 05/02/24 09:46 [facility] (Rec: 05/02/24 14:23 [facility] [id number]) Special Tests Knee Special Tests Elizabeth's Test Comments positive L Marciano Comments positive quad and RF L Straight Leg Raise Comments HS tightness mild -slightly restricted L>R Apley's Compression Comments neg Gary Test Comments neg Posterior Draw Comments neg varus/valgus Comments neg Clementina's Comments neg Ybarra Chondromalacia Comments neg PT-OP-M Strength Start: 04/27/24 09:55 Freq: Status: Active Protocol: Document 05/02/24 09:46 [facility] (Rec: 05/02/24 12:30 [facility] [id number]) Hip Strength Hip Manual Muscle Testing Right Flexion (L2) 4- Good- Extension (S1) 3+ Fair+ Abduction 4 Good Adduction 5 Normal External Rotation 4 Good Internal Rotation 5 Normal Left Flexion (L2) 3+ Fair+ Extension (S1) 3+ Fair+ Abduction 4- Good- Adduction 4+ Good+ External Rotation 4- Good- Internal Rotation 4- Good- Comments discomfort in hip w/IR Knee Strength Knee Manual Muscle Testing Right Flexion (S2) 5 Normal Extension (L3) 5 Normal Left Flexion (S2) 4 Good Extension (L3) 4 Good Comments pain in knee w/ext Ankle/Foot Strength Ankle and Foot Manual Muscle Testing Right Dorsiflexion (L4) 5 Normal Plantarflexion (S1) 5 Normal Comments 20 heel raises Left Dorsiflexion (L4) 5 Normal Plantarflexion (S1) 3+ Fair+ Comments 4 stopped d/t pain (heel raises) PT-OP-Q Treatments Start: 04/27/24 09:55 Freq: Status: Active Protocol: Document 05/26/24 10:45 [facility] (Rec: 05/29/24 16:[address] [facility] [id number]) Therapeutic Exercises Supine Exercises SLR Supine Exercise Name 1. Neutral foot 2. Hip ER Side bilateral Reps/Minutes 1. x10 2. x5 (fatigued) Comments VC for quad set to initiate bridge Supine Exercise Name DL>Marching (no band)>SL Bridging Side bilateral Resistance L3 band at knees Reps/Minutes 10 sec x5 Comments VC for foot placement, glute activation resolves LBP. Sidelying Exercises clamshell Sidelying Exercise Name no band> resisted Side bilateral Equipment Used Lvl 1 Tb Reps/Minutes x10 ea Comments min cues no rot Standing Exercises stretch Standing Exercise Name lunge position at wall: 1. gastroc 2. hip flexor Side bilateral Equipment Used wall Comments cues for glute activation for hip flexors. Unable to knee for soleus. Manual Therapy Treatment Consent Patient gave verbal consent for manual Yes treatment Soft Tissue Mobilization HS Body Location L and quad this session Mobilization Type Rolling,Other Body Position Hooklying Comments upward strokes for swelling Joint Mobilizations patellofemoral Joint sup, inf, med L Direction II Body Position Supine Reps/Duration X6 Comments II Taping left knee Body Location left knee Treatment Focus unload fat pad I strip distal to proximal 50%peripatalla start one lat one Type of Tape Kinesio Skin Inspection Intact, no redness or rash, adhesive present Comments medial, then one strip lat to medial 50% stretch Adhesive removed and skin cleaned with alcholol prior to application. Patient ed to remove in 3-5 days or immediately if skin irritation occurs. PT-OP-T Assessment and Plan Start: 04/27/24 09:55 Freq: Status: Active Protocol: Document 05/26/24 10:45 [facility] (Rec: 05/29/24 16:[address] [facility] [id number]) Physical Therapy Assessment Goals LEFS Impairment 41/80 Short Term Goal (STG) Pt will improve LEFS score to at least 49 to show improved functional ability. STG Duration 06/09 Chcf Goal (LTG) Pt will improve LEFS score to at least 58 to show improved functional ability. LTG Duration 07/09 activities Short Term Goal (STG) Pt will be able to go up/down stairs w/o pain in knee greater than 1/10 STG Duration 06/09 Cushion Sewer Goal (LTG) Pt will be able to start small exercises w/strength and short walks w/o inc knee swelling or pain greater than 1/10 LTG Duration 07/11 strength Short Term Goal (STG) Pt will be indep w/HEP STG Duration 06/06 Chcf Goal (LTG) Pt will score at least 3/5 in all planes LPM and at least 4+ /5 in all planes BLE MMT LTG Duration 07/09 Assessment Summary Assessment Treatment focus on manual therapy and HEP review. KT taping reapplied start of session. Cecy demonstrates tight hip flexors and gluteal weakness and fatigues after 5 repetitions of supine SLR in hip ER position. Her low back pain with bridging resolves with cues for gluteal activation to initiate bridging and cues for foot placement to increase gluteal focus more than hamstrings, and she is able to perform x10 each of double and single leg bridging and alternate marching in supine without hamstring cramp, demonstrating progress as she had a hamstring cramp after x1 attempted march at last visit 05/10. She is able to perform hip flexor stretch in Marciano position on mat table but unable to simulate without discomfort at home so is provided hip flexor stretch at wall in lunge position with positive feedback response; she is unable to perform knee flexion for back leg to also stretch soleus in this position. Sidelying clamshells progressed to resisted w/ Level 1 theraband. Physical Therapy Plan Frequency and Duration Frequency of Treatment 2x/Week Duration of treatment (weeks) 10 Plan of Care Start Date 05/02/24 Plan of Care End Date 07/11/24 Therapeutic Interventions Therapeutic Interventions Balance Training,Gait Training ,Home Exercise Program,Joint Mobilizations,Manual Therapy, Neuromuscular Re-education, Patient/Caregiver Education, Self-Care/Home Management,Soft Tissue Mobilization,Taping, Therapeutic Activities, Therapeutic Exercises Modalities Cold Pack/Ice Massage,Electric Stimulation,Hot Packs, Infrared Therapy,Iontophoresis ,Ultrasound Next Visit Focus/Plan Next Note Type Treatment Note Next Visit Plan review HEP: try supine/s/l to start: bridges, SLR, hip abd, resisted clamshells manual: gentle jt mobs to knee , hip and ankle trial of calf stretch.
--- NOTE | 2024-05-29 16:31 | PT.OTN ---
Current Diagnoses Pain in left knee (05/26/24) Physical Therapy Treatment Note PT-OP-A Visit Information Start: 04/27/24 09:55 Freq: Status: Active Protocol: Document 05/26/24 16:05 [facility] (Rec: 05/29/24 16:31 [facility] [id number]) Out-Patient Physical Therapy Visit Information Visit Information Visit Type Treatment Note Visit Start Time 10:45 Visit Stop Time 11:30 Visit Number 4 Number of PRE SALES ARCHITECT Visits 2 PT-OP-B Current Condition Start: 04/27/24 09:55 Freq: Status: Active Protocol: Document 05/02/24 09:46 [facility] (Rec: 05/02/24 12:30 [facility] [id number]) Current Condition History of Current Condition Onset Date about 1 year when tried to inc walking Current Complaints L knee History of Current Condition Pt reports has a bakers cyst. USed to walk 4 miles a day and stopped 2.5 years ago. Stopped d/t partner that walked . Pt saw rheumotolgist that thinks that is something underlying. Has hx of meniscus surgery 5-7 years ago but unsure which leg . Now if she walks too much knee swells up even out to mailbox. 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 . Hx of dirt bike riding, loading hay, horseback riding. has psoriatic arthritis and takes meds for that. hx of 3 back surgeries and no pain now. hx of L DVT in 2003, and 2008 and are fine now (found in HS region). is on xarelto since this. 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 no longer on control since 2003. back surgeries; L4 -5 herniation causing discetomy x2; L3-4 herniation causing discectomy. Pt reports if lays on back, feels like is going to throw up and neck pain for 2-3 years. hx of tension HAYES and neck pain Prior Treatments and Tests no acute bushra abdnormality noted in knee Treatment Goals Patient/Caregiver Goals find out what is wrong w/knee; be able to walk distance PT-OP-C Subjective Start: 04/27/24 09:55 Freq: Status: Active Protocol: Document 05/26/24 16:05 [facility] (Rec: 05/29/24 16:31 [facility] [id number]) OP-PT Subjective Patient Comments Patient Comments Cecy reports the cross strip of the KT tape came off as she was leaving PT last session but the tape still seemed to help. She wore it no more than 5 days. The hip flexor stretch on her back is uncomfortable because her bed is too soft and the bridges her her low back so she's not doing those exercises. PT-OP-D Balance Start: 04/27/24 09:55 Freq: Status: Active Protocol: Document 05/02/24 09:46 [facility] (Rec: 05/02/24 12:30 [facility] [id number]) Balance Tests Single Limb Standing Single Limb- Right 17 sec Single Limb- Left 19 sec w/more ankle deviation PT-OP-F Manual Assessment Start: 04/27/24 09:55 Freq: Status: Active Protocol: Document 05/02/24 09:46 [facility] (Rec: 05/02/24 12:30 [facility] [id number]) Manual Assessments Other Manual Assessments Other Manual Assessments varicose veins notable B ant shins and knee PT-OP-G Mobility & Gait Start: 04/27/24 09:55 Freq: Status: Active Protocol: Document 05/02/24 09:46 [facility] (Rec: 05/02/24 12:30 [facility] [id number]) OP Gait Assessment Comments Gait Comments inc force into LLE w/landing; dec pelvis motion; dec push off PT-OP-J Posture/Palpation/Skin Start: 04/27/24 09:55 Freq: Status: Active Protocol: Document 05/02/24 09:46 [facility] (Rec: 05/02/24 12:30 [facility] [id number]) Posture Evaluation Eric Postural Classification System Lumbar Protective Mechanism Left AP 2 Lumbar Protective Mechanism Right AP 0 Lumbar Protective Mechanism Left PA 2 Lumbar Protective Mechanism Right PA 2 Comments Posture Comments LLE turned out and ER of tibia , patella lat, IR of femur L; L>R pronation ; L pelvis higher than R PT-OP-K Range of Motion Start: 04/27/24 09:55 Freq: Status: Active Protocol: Document 05/02/24 09:46 [facility] (Rec: 05/02/24 12:30 [facility] [id number]) Knee Goniometric Range of Motion Knee Right Flexion Active (degrees) 125 Extension Active (degrees) 0 Left Flexion Active (degrees) 126 Extension Active (degrees) 4 Comments tight both directions PT-OP-L Special Tests Start: 04/27/24 09:55 Freq: Status: Active Protocol: Document 05/02/24 09:46 [facility] (Rec: 05/02/24 14:23 [facility] [id number]) Special Tests Knee Special Tests Elizabeth's Test Comments positive L Marciano Comments positive quad and RF L Straight Leg Raise Comments HS tightness mild -slightly restricted L>R Apley's Compression Comments neg Gary Test Comments neg Posterior Draw Comments neg varus/valgus Comments neg Clementina's Comments neg Ybarra Chondromalacia Comments neg PT-OP-M Strength Start: 04/27/24 09:55 Freq: Status: Active Protocol: Document 05/02/24 09:46 [facility] (Rec: 05/02/24 12:30 [facility] [id number]) Hip Strength Hip Manual Muscle Testing Right Flexion (L2) 4- Good- Extension (S1) 3+ Fair+ Abduction 4 Good Adduction 5 Normal External Rotation 4 Good Internal Rotation 5 Normal Left Flexion (L2) 3+ Fair+ Extension (S1) 3+ Fair+ Abduction 4- Good- Adduction 4+ Good+ External Rotation 4- Good- Internal Rotation 4- Good- Comments discomfort in hip w/IR Knee Strength Knee Manual Muscle Testing Right Flexion (S2) 5 Normal Extension (L3) 5 Normal Left Flexion (S2) 4 Good Extension (L3) 4 Good Comments pain in knee w/ext Ankle/Foot Strength Ankle and Foot Manual Muscle Testing Right Dorsiflexion (L4) 5 Normal Plantarflexion (S1) 5 Normal Comments 20 heel raises Left Dorsiflexion (L4) 5 Normal Plantarflexion (S1) 3+ Fair+ Comments 4 stopped d/t pain (heel raises) PT-OP-Q Treatments Start: 04/27/24 09:55 Freq: Status: Active Protocol: Document 05/26/24 16:05 [facility] (Rec: 05/29/24 16:31 [facility] [id number]) Therapeutic Exercises Supine Exercises SLR Supine Exercise Name 1. Neutral foot 2. Hip ER Side bilateral Reps/Minutes 1. x10 2. x5 (fatigued) Comments VC for quad set to initiate bridge Supine Exercise Name DL>Marching (no band)>SL Bridging Side bilateral Resistance L3 band at knees Reps/Minutes 10 sec x5 Comments VC for foot placement, glute activation resolves LBP. Sidelying Exercises clamshell Sidelying Exercise Name no band> resisted Side bilateral Equipment Used Lvl 1 Tb Reps/Minutes x10 ea Comments min cues no rot Standing Exercises stretch Standing Exercise Name lunge position at wall: 1. gastroc 2. hip flexor Side bilateral Equipment Used wall Comments cues for glute activation for hip flexors. Unable to knee for soleus. Manual Therapy Treatment Consent Patient gave verbal consent for manual Yes treatment Soft Tissue Mobilization HS Body Location L and quad this session Mobilization Type Rolling,Other Body Position Hooklying Comments upward strokes for swelling Joint Mobilizations patellofemoral Joint sup, inf, med L Direction II Body Position Supine Reps/Duration X6 Comments II Taping left knee Body Location left knee Treatment Focus unload fat pad I strip distal to proximal 50%peripatalla start one lat one Type of Tape Kinesio Skin Inspection Intact, no redness or rash, adhesive present Comments medial, then one strip lat to medial 50% stretch Adhesive removed and skin cleaned with alcholol prior to application. Patient ed to remove in 3-5 days or immediately if skin irritation occurs. PT-OP-T Assessment and Plan Start: 04/27/24 09:55 Freq: Status: Active Protocol: Document 05/26/24 16:05 [facility] (Rec: 05/29/24 16:31 [facility] [id number]) Physical Therapy Assessment Goals LEFS Impairment 41/80 Short Term Goal (STG) Pt will improve LEFS score to at least 49 to show improved functional ability. STG Duration 06/09 Snf Goal (LTG) Pt will improve LEFS score to at least 58 to show improved functional ability. LTG Duration 07/09 activities Short Term Goal (STG) Pt will be able to go up/down stairs w/o pain in knee greater than 1/10 STG Duration 06/09 Recessing Machine Operator Goal (LTG) Pt will be able to start small exercises w/strength and short walks w/o inc knee swelling or pain greater than 1/10 LTG Duration 07/11 strength Short Term Goal (STG) Pt will be indep w/HEP STG Duration 06/06 Snf Goal (LTG) Pt will score at least 3/5 in all planes LPM and at least 4+ /5 in all planes BLE MMT LTG Duration 07/09 Assessment Summary Assessment Treatment focus on manual therapy and HEP review. KT taping reapplied start of session. Cecy demonstrates tight hip flexors and gluteal weakness and fatigues after 5 repetitions of supine SLR in hip ER position. Her low back pain with bridging resolves with cues for gluteal activation to initiate bridging and cues for foot placement to increase gluteal focus more than hamstrings, and she is able to perform x10 each of double and single leg bridging and alternate marching in supine without hamstring cramp, demonstrating progress as she had a hamstring cramp after x1 attempted march at last visit 05/10. She is able to perform hip flexor stretch in Marciano position on mat table but unable to simulate without discomfort at home so is provided hip flexor stretch at wall in lunge position with positive feedback response; she is unable to perform knee flexion for back leg to also stretch soleus in this position. Sidelying clamshells progressed to resisted w/ Level 1 theraband. Physical Therapy Plan Frequency and Duration Frequency of Treatment 2x/Week Duration of treatment (weeks) 10 Plan of Care Start Date 05/02/24 Plan of Care End Date 07/11/24 Therapeutic Interventions Therapeutic Interventions Balance Training,Gait Training ,Home Exercise Program,Joint Mobilizations,Manual Therapy, Neuromuscular Re-education, Patient/Caregiver Education, Self-Care/Home Management,Soft Tissue Mobilization,Taping, Therapeutic Activities, Therapeutic Exercises Modalities Cold Pack/Ice Massage,Electric Stimulation,Hot Packs, Infrared Therapy,Iontophoresis ,Ultrasound Next Visit Focus/Plan Next Note Type Treatment Note Next Visit Plan review HEP: try supine/s/l to start: bridges, SLR, hip abd, resisted clamshells manual: gentle jt mobs to knee , hip and ankle trial of calf stretch.
--- NOTE | 2024-05-30 13:31 | PT.OTN ---
Current Diagnoses Pain in left knee (05/30/24) Physical Therapy Treatment Note PT-OP-A Visit Information Start: 04/27/24 09:55 Freq: Status: Active Protocol: Document 05/30/24 09:46 SW (Rec: 05/30/24 10:52 [id number]) Out-Patient Physical Therapy Visit Information Visit Information Visit Type Treatment Note Visit Start Time 09:46 Visit Stop Time 10:25 Visit Number 5 Number of SERVICE TRAINER Visits 3 PT-OP-B Current Condition Start: 04/27/24 09:55 Freq: Status: Active Protocol: Document 05/02/24 09:46 [facility] (Rec: 05/02/24 12:30 [facility] [id number]) Current Condition History of Current Condition Onset Date about 1 year when tried to inc walking Current Complaints L knee History of Current Condition Pt reports has a bakers cyst. USed to walk 4 miles a day and stopped 2.5 years ago. Stopped d/t partner that walked . Pt saw rheumotolgist that thinks that is something underlying. Has hx of meniscus surgery 5-7 years ago but unsure which leg . Now if she walks too much knee swells up even out to mailbox. 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 . Hx of dirt bike riding, loading hay, horseback riding. has psoriatic arthritis and takes meds for that. hx of 3 back surgeries and no pain now. hx of L DVT in 2003, and 2008 and are fine now (found in HS region). is on xarelto since this. 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 no longer on control since 2003. back surgeries; L4 -5 herniation causing discetomy x2; L3-4 herniation causing discectomy. Pt reports if lays on back, feels like is going to throw up and neck pain for 2-3 years. hx of tension HAYES and neck pain Prior Treatments and Tests no acute bushra abdnormality noted in knee Treatment Goals Patient/Caregiver Goals find out what is wrong w/knee; be able to walk distance PT-OP-C Subjective Start: 04/27/24 09:55 Freq: Status: Active Protocol: Document 05/30/24 09:46 SW (Rec: 05/30/24 10:52 SW [id number]) OP-PT Subjective Patient Comments Patient Comments Cecy reports that tape felt like it was pushing knee cap up into leg. Removed tape this morning in shower. Skin intact, appeared dry with some redness present. Pain level 3 /10 overall in Left knee. Pt feels like therapy is not helping and inquiring about an MRI. PT-OP-D Balance Start: 04/27/24 09:55 Freq: Status: Active Protocol: Document 05/02/24 09:46 [facility] (Rec: 05/02/24 12:30 [facility] [id number]) Balance Tests Single Limb Standing Single Limb- Right 17 sec Single Limb- Left 19 sec w/more ankle deviation PT-OP-F Manual Assessment Start: 04/27/24 09:55 Freq: Status: Active Protocol: Document 05/02/24 09:46 [facility] (Rec: 05/02/24 12:30 [facility] [id number]) Manual Assessments Other Manual Assessments Other Manual Assessments varicose veins notable B ant shins and knee PT-OP-G Mobility & Gait Start: 04/27/24 09:55 Freq: Status: Active Protocol: Document 05/02/24 09:46 [facility] (Rec: 05/02/24 12:30 [facility] [id number]) OP Gait Assessment Comments Gait Comments inc force into LLE w/landing; dec pelvis motion; dec push off PT-OP-J Posture/Palpation/Skin Start: 04/27/24 09:55 Freq: Status: Active Protocol: Document 05/02/24 09:46 [facility] (Rec: 05/02/24 12:30 [facility] [id number]) Posture Evaluation [facility] Postural Classification System Lumbar Protective Mechanism Left AP 2 Lumbar Protective Mechanism Right AP 0 Lumbar Protective Mechanism Left PA 2 Lumbar Protective Mechanism Right PA 2 Comments Posture Comments LLE turned out and ER of tibia , patella lat, IR of femur L; L>R pronation ; L pelvis higher than R PT-OP-K Range of Motion Start: 04/27/24 09:55 Freq: Status: Active Protocol: Document 05/02/24 09:46 [facility] (Rec: 05/02/24 12:30 [facility] [id number]) Knee Goniometric Range of Motion Knee Right Flexion Active (degrees) 125 Extension Active (degrees) 0 Left Flexion Active (degrees) 126 Extension Active (degrees) 4 Comments tight both directions PT-OP-L Special Tests Start: 04/27/24 09:55 Freq: Status: Active Protocol: Document 05/02/24 09:46 [facility] (Rec: 05/02/24 14:23 [facility] [id number]) Special Tests Knee Special Tests Elizabeth's Test Comments positive L Marciano Comments positive quad and RF L Straight Leg Raise Comments HS tightness mild -slightly restricted L>R Apley's Compression Comments neg Gary Test Comments neg Posterior Draw Comments neg varus/valgus Comments neg Clementina's Comments neg Ybarra Chondromalacia Comments neg PT-OP-M Strength Start: 04/27/24 09:55 Freq: Status: Active Protocol: Document 05/02/24 09:46 [facility] (Rec: 05/02/24 12:30 [facility] [id number]) Hip Strength Hip Manual Muscle Testing Right Flexion (L2) 4- Good- Extension (S1) 3+ Fair+ Abduction 4 Good Adduction 5 Normal External Rotation 4 Good Internal Rotation 5 Normal Left Flexion (L2) 3+ Fair+ Extension (S1) 3+ Fair+ Abduction 4- Good- Adduction 4+ Good+ External Rotation 4- Good- Internal Rotation 4- Good- Comments discomfort in hip w/IR Knee Strength Knee Manual Muscle Testing Right Flexion (S2) 5 Normal Extension (L3) 5 Normal Left Flexion (S2) 4 Good Extension (L3) 4 Good Comments pain in knee w/ext Ankle/Foot Strength Ankle and Foot Manual Muscle Testing Right Dorsiflexion (L4) 5 Normal Plantarflexion (S1) 5 Normal Comments 20 heel raises Left Dorsiflexion (L4) 5 Normal Plantarflexion (S1) 3+ Fair+ Comments 4 stopped d/t pain (heel raises) PT-OP-Q Treatments Start: 04/27/24 09:55 Freq: Status: Active Protocol: Document 05/30/24 09:46 (Rec: 05/30/24 10:52 [id number]) Therapeutic Exercises Supine Exercises SLR Supine Exercise Name 1. Neutral foot 2. Hip ER Side bilateral Reps/Minutes 1. x10 2. x5 (fatigued) Comments VC for quad set to initiate bridge Supine Exercise Name DL Side bilateral Resistance L3 band at knees Reps/Minutes x5 Comments VC for foot placement, glute activation resolves LBP, returns w/fatigue Sidelying Exercises clamshell Sidelying Exercise Name Resisted Clamshells Side bilateral Equipment Used Lvl 1 Tb Reps/Minutes x10 ea Comments cues for alignment to alleviate patellar discomfort hip abd Sidelying Exercise Name hip abduction (HEP) Side bilateral Resistance AROM Reps/Minutes x10 Comments cues for alignment, eccentric control, quick to fatigue Standing Exercises Heel raises Standing Exercise Name Heel Raises (HEP) Side bilateral Resistance AROM Reps/Minutes Raised plinth for balance support Comments pain free, cues for alignment and eccentric control Manual Therapy Treatment Soft Tissue Mobilization calf Body Location L Mobilization Type Rolling Intensity/Depth Moderate Body Position Supine HS Body Location HS and quad Mobilization Type Rolling,Other Intensity/Depth superficial>moderate Body Position Hooklying Comments upward strokes for swelling Joint Mobilizations patellofemoral Joint sup, inf, med L Direction II Body Position Supine Reps/Duration X6 Comments II>III Taping left knee Body Location Tape removal Skin Inspection skin intact, dry, minimal redness present Comments Removed adhesive, did not re apply PT-OP-T Assessment and Plan Start: 04/27/24 09:55 Freq: Status: Active Protocol: Document 05/30/24 09:46 (Rec: 05/30/24 10:52 [id number]) Physical Therapy Assessment Goals LEFS Impairment 41/80 Short Term Goal (STG) Pt will improve LEFS score to at least 49 to show improved functional ability. STG Duration 06/09 Gas Prover Goal (LTG) Pt will improve LEFS score to at least 58 to show improved functional ability. LTG Duration 07/09 activities Short Term Goal (STG) Pt will be able to go up/down stairs w/o pain in knee greater than 1/10 STG Duration 06/09 Gas Prover Goal (LTG) Pt will be able to start small exercises w/strength and short walks w/o inc knee swelling or pain greater than 1/10 LTG Duration 07/11 strength Short Term Goal (STG) Pt will be indep w/HEP STG Duration 06/06 [facility] Goal (LTG) Pt will score at least 3/5 in all planes LPM and at least 4+ /5 in all planes BLE MMT LTG Duration 07/09 Assessment Summary Assessment Pt did not tolerate K tape well, reports felt compression discomfort of patella, pt removed tape, SERVICE TRAINER removed adhesive today and did not re- apply. Reviewed bridge today, cues for glute engagement, initially tolerated well, then felt discomfort in back with increased rep and fatigue, low reps this session. Pt education on HEP, muscle strength gains, and carryover for progress in PT. Initiated sidelying hip abduction this session and heel raises, good tolerance, pain free, cues for form. Cues throughout session today for eccentric control with exercises. Overall pt tolerated session well without increase in symptoms. Plan to review new exercises next session for pt tolerance and progress as able. Physical Therapy Plan Frequency and Duration Frequency of Treatment 2x/Week Duration of treatment (weeks) 10 Plan of Care Start Date 05/02/24 Plan of Care End Date 07/11/24 Therapeutic Interventions Therapeutic Interventions Balance Training,Gait Training ,Home Exercise Program,Joint Mobilizations,Manual Therapy, Neuromuscular Re-education, Patient/Caregiver Education, Self-Care/Home Management,Soft Tissue Mobilization,Taping, Therapeutic Activities, Therapeutic Exercises Modalities Cold Pack/Ice Massage,Electric Stimulation,Hot Packs, Infrared Therapy,Iontophoresis ,Ultrasound Next Visit Focus/Plan Next Note Type Treatment Note Next Visit Plan review HEP: try supine/s/l to start: bridges, SLR, hip abd, resisted clamshells manual: gentle jt mobs to knee , hip and ankle trial of calf stretch.
--- NOTE | 2024-06-20 12:21 | PT.OTN ---
Current Diagnoses Pain in left knee (06/20/24) Physical Therapy Treatment Note PT-OP-A Visit Information Start: 04/27/24 09:55 Freq: Status: Active Protocol: Document 06/20/24 09:52 [facility] (Rec: 06/20/24 10:30 [facility] [id number]) Out-Patient Physical Therapy Visit Information Visit Information Visit Type Discharge Summary Visit Start Time 09:52 Visit Stop Time 10:30 Visit Number 6 Number of BIOPHARMACEUTICAL REP Visits 0 PT-OP-B Current Condition Start: 04/27/24 09:55 Freq: Status: Active Protocol: Document 05/02/24 09:46 [facility] (Rec: 05/02/24 12:30 [facility] [id number]) Current Condition History of Current Condition Onset Date about 1 year when tried to inc walking Current Complaints L knee History of Current Condition Pt reports has a bakers cyst. USed to walk 4 miles a day and stopped 2.5 years ago. Stopped d/t partner that walked . Pt saw rheumotolgist that thinks that is something underlying. Has hx of meniscus surgery 5-7 years ago but unsure which leg . Now if she walks too much knee swells up even out to mailbox. 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 . Hx of dirt bike riding, loading hay, horseback riding. has psoriatic arthritis and takes meds for that. hx of 3 back surgeries and no pain now. hx of L DVT in 2003, and 2008 and are fine now (found in HS region). is on xarelto since this. 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 no longer on control since 2003. back surgeries; L4 -5 herniation causing discetomy x2; L3-4 herniation causing discectomy. Pt reports if lays on back, feels like is going to throw up and neck pain for 2-3 years. hx of tension HAYES and neck pain Prior Treatments and Tests no acute bushra abdnormality noted in knee Treatment Goals Patient/Caregiver Goals find out what is wrong w/knee; be able to walk distance PT-OP-C Subjective Start: 04/27/24 09:55 Freq: Status: Active Protocol: Document 06/20/24 09:52 [facility] (Rec: 06/20/24 10:30 [facility] [id number]) OP-PT Subjective Patient Comments Patient Comments pt reports no change w/PT. Some of the PT is hurting her R hip PT-OP-D Balance Start: 04/27/24 09:55 Freq: Status: Active Protocol: Document 05/02/24 09:46 [facility] (Rec: 05/02/24 12:30 [facility] [id number]) Balance Tests Single Limb Standing Single Limb- Right 17 sec Single Limb- Left 19 sec w/more ankle deviation PT-OP-F Manual Assessment Start: 04/27/24 09:55 Freq: Status: Active Protocol: Document 05/02/24 09:46 [facility] (Rec: 05/02/24 12:30 [facility] [id number]) Manual Assessments Other Manual Assessments Other Manual Assessments varicose veins notable B ant shins and knee PT-OP-G Mobility & Gait Start: 04/27/24 09:55 Freq: Status: Active Protocol: Document 05/02/24 09:46 [facility] (Rec: 05/02/24 12:30 [facility] [id number]) OP Gait Assessment Comments Gait Comments inc force into LLE w/landing; dec pelvis motion; dec push off PT-OP-J Posture/Palpation/Skin Start: 04/27/24 09:55 Freq: Status: Active Protocol: Document 06/20/24 09:52 [facility] (Rec: 06/20/24 10:30 [facility] [id number]) Posture Evaluation Eric Postural Classification System Lumbar Protective Mechanism Left AP 0 Lumbar Protective Mechanism Right AP 0 Lumbar Protective Mechanism Left PA 0 Lumbar Protective Mechanism Right PA 0 PT-OP-K Range of Motion Start: 04/27/24 09:55 Freq: Status: Active Protocol: Document 05/02/24 09:46 [facility] (Rec: 05/02/24 12:30 [facility] [id number]) Knee Goniometric Range of Motion Knee Right Flexion Active (degrees) 125 Extension Active (degrees) 0 Left Flexion Active (degrees) 126 Extension Active (degrees) 4 Comments tight both directions PT-OP-L Special Tests Start: 04/27/24 09:55 Freq: Status: Active Protocol: Document 05/02/24 09:46 [facility] (Rec: 05/02/24 14:23 [facility] [id number]) Special Tests Knee Special Tests Elizabeth's Test Comments positive L Marciano Comments positive quad and RF L Straight Leg Raise Comments HS tightness mild -slightly restricted L>R Apley's Compression Comments neg Gary Test Comments neg Posterior Draw Comments neg varus/valgus Comments neg Clementina's Comments neg Ybarra Chondromalacia Comments neg PT-OP-M Strength Start: 04/27/24 09:55 Freq: Status: Active Protocol: Document 06/20/24 09:52 [facility] (Rec: 06/20/24 10:30 [facility] [id number]) Hip Strength Hip Manual Muscle Testing Right Flexion (L2) 4- Good- Extension (S1) 3+ Fair+ Abduction 4 Good Adduction 5 Normal External Rotation 4 Good Internal Rotation 5 Normal Comments pain in hip w/abd Left Flexion (L2) 4- Good- Extension (S1) 3+ Fair+ Abduction 4 Good Adduction 4+ Good+ External Rotation 4 Good Internal Rotation 5 Normal Knee Strength Knee Manual Muscle Testing Right Flexion (S2) 5 Normal Extension (L3) 5 Normal Left Flexion (S2) 4 Good Extension (L3) 4 Good Comments pain in knee w/ext Ankle/Foot Strength Ankle and Foot Manual Muscle Testing Right Dorsiflexion (L4) 5 Normal Plantarflexion (S1) 5 Normal Comments 20 heel raises Left Dorsiflexion (L4) 5 Normal Plantarflexion (S1) 3+ Fair+ Comments 2 stopped d/t pain (heel raises) PT-OP-Q Treatments Start: 04/27/24 09:55 Freq: Status: Active Protocol: Document 06/20/24 09:52 [facility] (Rec: 06/20/24 10:30 [facility] [id number]) Therapeutic Exercises Supine Exercises HS stretch Supine Exercise Name from hooklying HEP Side bilateral Reps/Minutes 30 sec Comments verbal cues SLR Supine Exercise Name DC Comments pain getting to knee straight bridge Supine Exercise Name Dc Reps/Minutes 5 Comments pain lifting Sidelying Exercises clamshell Sidelying Exercise Name Resisted Clamshells Side bilateral Reps/Minutes rx3; L x10 Comments cues for alignment to alleviate patellar discomfort hip abd Sidelying Exercise Name hip abduction (HEP) Side bilateral Resistance AROM Reps/Minutes 5 Comments stopped d/t pain Sitting Exercises LAQ Sitting Exercise Name comfortable range Side left Reps/Minutes 2x10 stretch Sitting Exercise Name calf Side left Equipment Used towel Reps/Minutes 30 sec Seated hip abd with band Sitting Exercise Name HEP Side bilateral Resistance level 3 green band Reps/Minutes one minute X 1 Standing Exercises hip flex Standing Exercise Name stretch Side right Reps/Minutes 30 sec Heel raises Standing Exercise Name Heel Raises (HEP) Side bilateral Resistance AROM Reps/Minutes 10 Comments no pain stretch Standing Exercise Name attempted gastroc fwd lean and foot on wall but pain in knee Side bilateral Equipment Used wall Comments stopped d/t pain Other Exercises isometrics Other Exercise Name B MMT and LPM Manual Therapy Treatment Consent Patient gave verbal consent for manual Yes treatment Soft Tissue Mobilization quad Mobilization Type Rolling Intensity/Depth Moderate Body Position Hooklying calf Body Location L Mobilization Type Rolling Intensity/Depth Moderate Body Position Supine HS Body Location HS and quad Mobilization Type Rolling,Other Intensity/Depth superficial>moderate Body Position Hooklying Comments upward strokes for swelling PT-OP-T Assessment and Plan Start: 04/27/24 09:55 Freq: Status: Active Protocol: Document 06/20/24 09:52 [facility] (Rec: 06/20/24 10:30 [facility] [id number]) Physical Therapy Assessment Goals LEFS Impairment 41/80 Short Term Goal (STG) Pt will improve LEFS score to at least 49 to show improved functional ability. STG Duration 06/09 Cardio Tech Goal (LTG) Pt will improve LEFS score to at least 58 to show improved functional ability. LTG Duration 07/09 activities Short Term Goal (STG) Pt will be able to go up/down stairs w/o pain in knee greater than 08/18 06/20-12/16 STG Duration 06/09 Skilled Nursing Goal (LTG) Pt will be able to start small exercises w/strength and short walks w/o inc knee swelling or pain greater than 08/18 06/20-PT exercises only; walks to mailbox w/o swelling now LTG Duration 07/11 strength Short Term Goal (STG) Pt will be indep w/HEP STG Duration 06/06 Skilled Nursing Goal (LTG) Pt will score at least 3/5 in all planes LPM and at least 4+ /5 in all planes BLE MMT LTG Duration 07/09 Assessment Summary Assessment At this time, pt has made no progress w/PT re: symptoms. Some improved strength, but R hip was aggrevated by some of the exercises and changed exercises d/t this. At this time, pt encouraged to [facility] orth[facility] and follow up w/ provider. Physical Therapy Plan Discharge Physical Therapy Discharge Reasons Plateau in Progress
== END 2024-07-12 08:16 | disposition home or self-care (01) ==
LOC: PHYS 09:45
PROVIDERS: Family Provider Family Medicine; PCP Family Medicine; Referring Provider Family Medicine; Visit Provider Family Medicine
DX: M25.562 Pain in left knee (principal)
CPT/HCPCS: 97110; 97140; 97162; 97530; 97535

== ENCOUNTER → 2025-02-10 07:30 | Outpatient (CLI) | payer OTHER, SELFPAY ==
[2025-02-10 09:06] LABS: Cholesterol 238 mg/dL (140-199); HDL Cholesterol 102 mg/dL (40-60); Triglycerides 57 mg/dL (35-150)
[2025-02-10 09:07] LABS: Hemoglobin A1C% w Est Avg Glu 5.3 % (4.0-6.0)
[2025-02-10 16:19] LABS: HIV 1 & 2 Ab/Ag 4th Gen Combo NEGATIVE (NEGATIVE)
== END ==
PROVIDERS: Family Provider Family Medicine; PCP Family Medicine; Referring Provider Family Medicine; Visit Provider Family Medicine
DX: Z13.1 Encounter for screening for diabetes mellitus (principal); Z11.3 Encounter for screening for infections with a predominantly sexual mode of transmission; E78.5 Hyperlipidemia, unspecified
CPT/HCPCS: 36415; 80061; 83036; 87389

== ENCOUNTER → 2025-02-13 11:34 | Outpatient (CLI) | payer OTHER, SELFPAY ==
--- NOTE | 2025-02-13 11:35 | DI.RAD.S_ITS ---
PROCEDURE: XR FOOT RT MIN 3V INDICATIONS: foot pain TECHNIQUE: 3 views of the foot were acquired. COMPARISON: [facility], , FOOT 3V RIGHT, 12/09/2014, 17:55. FINDINGS: Bones: Pes planus and hammertoe deformities 2nd through 5th digits noted. Partially united old nondisplaced fracture of the dorsal navicular also noted. Joints: Mild degeneration in the interphalangeal joints Soft tissues: Moderate calcification Achilles and plantar tendon insertion on the calcaneus. IMPRESSION: Chronic findings Dictated by: Terrance Miller M.D. on 02/14/2025 at 11:38 Approved by: Terrance Miller M.D. on 02/14/2025 at 11:39
== END ==
PROVIDERS: Family Provider Family Medicine; PCP Family Medicine; Referring Provider Family Medicine; Visit Provider Family Medicine
DX: S92.254A Nondisplaced fracture of navicular [scaphoid] of right foot, initial encounter for closed fracture (principal); M20.41 Other hammer toe(s) (acquired), right foot; M21.41 Flat foot [pes planus] (acquired), right foot; X58.XXXA Exposure to other specified factors, initial encounter; M79.673 Pain in unspecified foot
CPT/HCPCS: 73630

== ENCOUNTER → 2025-02-15 12:08 | Outpatient (CLI) | payer OTHER, SELFPAY ==
--- NOTE | 2025-02-15 12:09 | DI.MRI.S_ITS ---
PROCEDURE: MR KNEE LT WO CON INDICATIONS: left knee pain TECHNIQUE: Noncontrast sagittal PD fast spin echo and T2 fast spin echo with fat saturation, sagittal 3-D FLASH with fat saturation; coronal T1 spin echo and PD fast spin echo with fat saturation, and axial PD fast spin echo with fat saturation through the knee. COMPARISON: None. FINDINGS: Image quality: Excellent. Menisci: Abnormal appearance of the medial meniscus with oblique and horizontal tears of the posterior horn extending into the mid body, and into the posterior meniscal root ligament. Meniscocapsular separation posteriolyr and medially and medial extrusion of the mid body on the coronal images. Heterogeneous signal suspicious for oblique tear of the anterior horn of the lateral meniscus extending into the anterior root ligament. Posterior horn of the lateral meniscus is relatively normal in configuration and signal. Cruciate ligaments: Near complete tear of the anterior cruciate ligament with diffuse heterogeneous increased signal, thinning with minimal intact fibers. Mild nonspecific thickening and increased T2 weighted signal in the proximal posterior cruciate ligament otherwise normal. Medial structures: Mild increased T2 weighted signal surrounding the proximal and mid aspect of the medial collateral ligament and at the distal aspect of the semimembranosus tendon. Mild increased medial pes anserinus bursal fluid. Otherwise the visualized portions of the pes anserinus tendons appear normal. Lateral structures: Mild increased T2 weighted signal adjacent to the mid and distal popliteus tendon and at the proximal lateral collateral ligament suspicious for injury/strain. The long and short heads of the biceps femoris tendon appear intact. Iliotibial band appears normal. Anterior structures: Nonspecific increased T2 weighted signal, edema and thickening at the attachments of the medial and lateral patellar retinacula without full- thickness tear or retraction and mild edema in the suprapatellar and infrapatellar fat pads. The quadriceps and patellar tendons appear intact. Patellar alignment is normal without patella Asha or patella baja. No femoral trochlear dysplasia or ventral trochlear prominence. Bones and cartilage: 7 mm subchondral cysts in the central aspect of the tibial plateau at the tibial eminence enthesophyte calcification at the anterior-superior aspect of the patella. 4 mm cartilage defect in the lateral femoral condyle and moderate diffuse cartilage thinning throughout the medial greater than patellofemoral greater than lateral compartments with moderate osteophytes. Joint space: Moderate knee joint effusion. Large multi septated popliteal cyst measures up to approximately 7 cm cc by 4 cm transverse by 2.5 cm AP maximal dimensions. Conglomeration of anterior parameniscal cysts measuring up to approximately 1.1 cm anterior to the anterior horns of the medial and lateral menisci. IMPRESSION: Tears of the medial meniscus posterior horn and mid body and lateral meniscus anterior horn. Tear of the anterior cruciate ligament as discussed above. Degenerative changes. Knee joint effusion. Popliteal cyst. Other minor injury/strain findings as above. Dictated by: Bernard Blood M.D. on 02/19/2025 at 8:09 Approved by: Bernard Blood M.D. on 02/19/2025 at 8:23
== END ==
PROVIDERS: Family Provider Family Medicine; PCP Family Medicine; Referring Provider Family Medicine; Visit Provider Family Medicine
DX: S83.412A Sprain of medial collateral ligament of left knee, initial encounter (principal); S83.282A Other tear of lateral meniscus, current injury, left knee, initial encounter; S83.512A Sprain of anterior cruciate ligament of left knee, initial encounter; M25.462 Effusion, left knee; M25.562 Pain in left knee; M71.22 Synovial cyst of popliteal space [Baker], left knee
CPT/HCPCS: 73721

== ENCOUNTER 2025-03-14 07:25 | Day surgery (SDC) | payer OTHER, SELFPAY ==
[2025-03-08 14:45] VITALS: BMI 29.5
--- NOTE | 2025-03-14 | PATH_ITS ---
[facility] Accession Number: [id number] No. of containers..01 Tissue . 01 Material submitted: . finger - RIGHT SMALL FINGER CYST . 01 Diagnosis: SOFT TISSUE, RIGHT SMALL FINGER, EXCISION: Ganglion cyst. MRV 03/21/2025 1208 Local . 01 Electronically signed: . Marciano Dixon MD, Dermatopathologist NPI- [id number] . 01 Gross description: . RIGHT SMALL FINGER CYST: Received in formalin is 1 fragment of beyer soft tissue measuring 0.7 x 0.6 x 0.2 cm. Tissue is inked. Specimen is sectioned and submitted in its entirety in 1 cassette. /LEANA 03/16/2025 0039 Local . 01 Pathologist provided ICD-10: M67.441 . 01 CPT . 961996 Specimen Comment: A courtesy copy of this report has been sent to [facility] Pathology Performed at: [address] [address], [place], [place] [id number] MD Umberto Lisa MD Phone: [phone]
[2025-03-14 07:56] VITALS: BP 149/79; PULSE 68; RESP 14; TEMP 36.1; O2SAT 98; BMI 29.5
[2025-03-14] MEDS: LACTATED RINGERS 1,000 ML 42 ML IV (08:05)
--- NOTE | 2025-03-14 08:16 | PM.PREOP ---
Pre-operative Note COVID-19 COVID-19 status: Not tested Interval Note History & Physical reviewed/Exam performed by Physician: Yes Changes to H&P: No
[2025-03-14] MEDS: CEFAZOLIN 2 GM/100 ML PREMIX 100 ML IV (08:40)
--- NOTE | 2025-03-14 09:06 | SUR.OPER ---
Supine on padded OR bed, head on pillow, left arm secured on padded arm boards at <90 degrees abduction, right arm on padded arm board, legs uncrossed, safety belt at thigh, tape over blanket over lower legs.
[2025-03-14 09:25] VITALS: BP 111/62; PULSE 69; RESP 16; TEMP 36.2; O2SAT 98
[2025-03-14 09:30] VITALS: BP 130/80; PULSE 57; RESP 16; TEMP 36.2; O2SAT 98
[2025-03-14] MEDS: BUPIVACAINE 0.25% (PF) VIAL 30 ML INJ (09:30)
[2025-03-14 09:40] VITALS: BP 130/81; PULSE 59; RESP 16; TEMP 36.8; O2SAT 98
--- NOTE | 2025-03-14 09:42 | PM.OP.1 ---
Operative Date/Time/Diagnoses Date of procedure: 03/14/25 Time of procedure: 09:02 Pre-op diagnosis: right small finger mass Post-op diagnosis: same Procedure & Clinicians Procedure: right small finger mass excisional biopsy Same procedure(s) as scheduled: Yes Surgeon: Jennifer Murray Ceo And President: Darya Levine Anesthesia Type: MAC +/- and Local Operative Notes Findings: cyst flexor tendon sheath small finger Closure Type: primary Specimen(s): other Applied: none Estimated Blood Loss (mL): 1 Tourniquet time (min): 13 Procedure in detail: Preoperative diagnosis: ?Right small finger mass Procedure performed: ?Excisional biopsy right small finger mass Postoperative diagnosis: Same Primary Surgeon: Jennifer Murray, DO Ceo And President: Darya Levine PA-C? Anesthesia: Local & MAC EBL: 1 ml Tourniquet: 13 minutes @ 200 mmHg Indication For Surgery: ?See preop patient H and P Operative Findings: ?Small finger cyst of tendon sheath ? Procedure in Detail: The patient was met in the pre-operative hold area. Consent was verified and operative extremity was signed. The patient then met with anesthesia and was brought back to the operating room. The patient was placed supine on the operating table. Anesthetic was administered. Local anesthesia was injected (4 cc of 0.25% Marcaine).? The extremity was then prepped and draped in the usual sterile fashion. A timeout was performed per protocol. All were in agreement and we proceeded. ? An Esmarch was used to exsanguinate the right upper extremity and the tourniquet was inflated to 200 mL of mercury. ?A 1 cm oblique incision was made.? Dissection was taken down to the cyst.? This was dissected out.? And removed from the underlying flexor tendon sheath while protecting the digital nerves.? This was sent for evaluation by pathology.? The wound was copiously irrigated and closed with 3 O nylon.? A sterile dressing was applied consisting of Xeroform plain gauze sterile Lisa and an Emmett wrap.? At the end of the case 2 cc of 0.25% Marcaine was infiltrated into the incision site. Sutures will be in place for 2 weeks and the patient will return to clinic for suture removal. ? Complications: none Post-operative Condition: stable Disposition: PACU
[2025-03-14] MEDS: OXYCODONE IR 5 MG TABLET PO (09:56)
== END 2025-03-14 10:24 | disposition home or self-care (01) ==
PROVIDERS: Family Provider Family Medicine; PCP Family Medicine; Referring Provider Orthopaedic Surgery; Visit Provider Orthopaedic Surgery
DX: M67.441 Ganglion, right hand (principal)
CPT/HCPCS: J0690; J2704

== ENCOUNTER → 2025-05-26 10:39 | Outpatient (CLI) | payer OTHER, SELFPAY ==
[2025-05-26 11:15] LABS: Add Manual Diff / Slide Review NO; Hematocrit 36.2 % (36-46); Hemoglobin 12.2 g/dL (12.0-16.0); Lymphocytes Absolute Auto 2800 /uL (1100-4500); Mean Corpuscular HGB Conc 33.7 % (30-36); Mean Corpuscular Hemoglobin 31.5 PG (26-34); Mean Corpuscular Volume 93.3 fL (80-100); Platelet Count 191 X10^3/uL (150-400)
[2025-05-26 11:27] LABS: Alanine Aminotransferase 26 IU/L (<35); Albumin 4.2 g/dL (3.5-5.0); Albumin Globulin Ratio 1.6 (1.0-2.8); Alkaline Phosphatase 70 U/L (38-126); Blood Urea Nitrogen 18 mg/dL (7-17); Calcium 8.9 mg/dL (8.4-10.2); Carbon Dioxide 28 mmol/L (22-32); Chloride 106 mmol/L (98-107); Estimated Glomerular Filt Rate > 60 mL/min (>60); Globulin 2.7 g/dL (1.7-4.1); Glucose 96 mg/dL (70-99); HEMOLYSIS < 15 (0-50); Potassium 4.0 mmol/L (3.4-5.1); Sodium 137 mmol/L (137-145); Total Protein 6.9 g/dL (6.3-8.2)
[2025-05-28 15:11] LABS: QuantiFERON Mitogen Value >10.00 IU/mL (.); QuantiFERON Nil Value 0.06 IU/mL (.); QuantiFERON TB Gold Plus Negative (Negative); QuantiFERON TB1 Ag Value 0.08 IU/mL (.); QuantiFERON TB2 Ag Value 0.10 IU/mL (.)
== END ==
LOC: LAB 10:40
PROVIDERS: PCP Family Medicine; Referring Provider Physician Assistant Medical; Visit Provider Physician Assistant Medical
DX: L40.50 Arthropathic psoriasis, unspecified (principal)
CPT/HCPCS: 36415; 80053; 85025; 86480